=== PATIENT | female | born 1980 | race Hispanic/Latino ===

== ENCOUNTER 2018-11-01 18:28 | Emergency (ER) | payer SELFPAY ==
[2018-11-01 19:24] LABS: Specific Gravity 1.025 (1.005-1.030); Urine Appearance CLOUDY; Urine Bilirubin NEGATIVE (NEG); Urine Blood 3+ (NEG); Urine Color YELLOW; Urine Glucose NEGATIVE (NEG); Urine Protein 2+ (NEG); Urine Specific Gravity 1.025 (1.005-1.030)
[2018-11-01 19:35] LABS: Absolute Lymphocytes (CBC) 2.2 K/uL (0.7-4.9); Absolute Monocytes 0.6 K/uL (0.1-1.3); Basophils % 0.7 % (0-1.3); Lymphocytes % 27.2 % (15.3-44.8); MPV 8.2 fL (7.6-11.3); Monocytes % 7.5 % (3.3-12.3); RBC Red Blood Cell Count 3.87 M/uL (3.86-4.86)
[2018-11-01 19:35] LABS: Urine Microscopic Reflex ORDER UMIC
[2018-11-01 19:46] LABS: Urine Bacteria 20-50 /HPF (<20); Urine Culture Reflex Order REFLEXED; Urine RBC LOADED /HPF (NONE SEEN)
[2018-11-01 19:48] LABS: BUN Blood Urea Nitrogen 12 mg/dL (7-18); Bicarbonate 27 mmol/L (21-32); Glucose Level 105 mg/dL (74-106); Potassium 3.7 mmol/L (3.5-5.1); Sodium Level 142 mmol/L (136-145)
[2018-11-01 20:21] LABS: Anisocytosis 1+; Blood Morphology Comment NOTED (NOT SEEN); Hypochromasia 2+; Platelet Estimate ADEQ; Urine White Blood Cell Casts OK
--- NOTE | 2018-11-01 20:49 | RAD REPORT ---
EXAM DESCRIPTION: US - Transvaginal Study Probe - 11/01/2018 8:23 pm CLINICAL HISTORY: Pelvic pain with vaginal bleeding COMPARISON: 2017 FINDINGS: The uterus measures 8 x 6 x 7cm. A fibroid is not seen. Initial stripe measures 16 millime ters Right ovary is normal in size and echotexture. 5.8 centimeter left ovarian cyst. Flow to the left ovary is seen. Right and left adnexal unremarkable No significant free fluid is seen. IMPRESSION: 5.8 centimeter left ovarian cyst. Followup ultrasound in a couple months recommended to assess stability/resolution
[2018-11-01] MEDS ORDERED: MEDROXYPROGEST ACET 150 MG/ML IM ONE (21:22)
--- NOTE | 2018-11-01 21:26 | EDPHYS ---
Physician Documentation [facility] Name: Trinity Ramos Age: 38 yrs Sex: Female : 1980 Arrival Date: 11/01/2018 Time: 18:33 Bed 16 Private MD: None, None ED Physician Abdirahman Enamorado HPI: 11/01 20:54 This 38 yrs old Female presents to ER via Ambulatory with complaints of kb Vaginal Bleeding. 20:54 The patient presents with vaginal bleeding that is moderate, with clots, reports using kb 9 pads or tampons per day. 21:18 Onset: The symptoms/episode began/occurred 4 day(s) ago. Modifying factors: The kb symptoms are alleviated by nothing, the symptoms are aggravated by nothing. Associated signs and symptoms: Pertinent positives: vaginal bleeding, Pertinent negatives: constipation, cramping, diarrhea, dyspareunia, dysuria, fever, hematuria, nausea, urinary frequency, vaginal discharge, vomiting. Severity of symptoms: At their worst the symptoms were moderate, in the emergency department the symptoms are unchanged. The patient's method of control includes nothing. The patient has experienced similar episodes in the past, chronically. The patient has not recently seen a physician. Pt reports she has vaginal bleeding for 2-3 weeks at a time normally. States it has been going on for years and she has had to be admitted for it once to get a blood transfusion. Last seen at [facility] clinic in May 2016. Pt reports she is supposed to take iron daily, but hasn't been taking it in a while because it doesn't stop the bleeding. This time bleeding started 3-4 days ago. 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 - Social history:: Smoking status: unknown. - Ebola Screening: : Patient negative for fever greater than or equal to 101.5 degrees Fahrenheit, and additional compatible Ebola Virus Disease symptoms. ROS: 20:51 Constitutional: Negative for fever, chills, and weight loss, Cardiovascular: Negative kb for chest pain, palpitations, and edema, Respiratory: Negative for shortness of breath, cough, wheezing, and pleuritic chest pain, Abdomen/GI: Negative for abdominal pain, nausea, vomiting, diarrhea, and constipation, MS/Extremity: Negative for injury and deformity, Skin: Negative for injury, rash, and discoloration, Neuro: Negative for headache, weakness, numbness, tingling, and seizure. 20:51 : Positive for vaginal bleeding. Exam: 20:48 Constitutional: This is a well developed, well nourished patient who is awake, alert, kb and in no acute distress. Head/Face: Normocephalic, atraumatic. Chest/axilla: Normal chest wall appearance and motion. Nontender with no deformity. No lesions are appreciated. Cardiovascular: Regular rate and rhythm with a normal S1 and S2. No gallops, murmurs, or rubs. Normal PMI, no JVD. No pulse deficits. Respiratory: Lungs have equal breath sounds bilaterally, clear to auscultation and percussion. No rales, rhonchi or wheezes noted. No increased work of breathing, no retractions or nasal flaring. Abdomen/GI: Soft, non-tender, with normal bowel sounds. No distension or tympany. No guarding or rebound. No evidence of tenderness throughout. Skin: Warm, dry with normal turgor. Normal color with no rashes, no lesions, and no evidence of cellulitis. MS/ Extremity: Pulses equal, no cyanosis. Neurovascular intact. Full, normal range of motion. Neuro: Awake and alert, GCS 15, oriented to person, place, time, and situation. Cranial nerves II-XII grossly intact. Motor strength 5/5 in all extremities. Sensory grossly intact. Cerebellar exam normal. Normal gait. 20:48 : Pelvic Exam: External exam: is normal, Speculum exam: mild bleeding, the nurse was present for the exam. Vital Signs: 18:35 BP 117 / 57; Pulse 72; Resp 18; Temp 98.2(O); Pulse Ox 99% on R/A; Weight 88.45 kg; hj Height 5 ft. 2 in. (157.48 cm); Pain 7/10; 20:42 BP 106 / 62; Pulse 67; Resp 16 S; Pulse Ox 100% on R/A; jd3 21:39 BP 100 / 57; Pulse 65; Resp 17 S; Pulse Ox 100% on R/A; Pain 5/10; jd3 18:35 Body Mass Index 35.67 (88.45 kg, 157.48 cm) hj MDM: 18:48 Patient medically screened. kb 20:47 Data reviewed: vital signs, nurses notes. Data interpreted: Pulse oximetry: on room air kb is 100 %. Interpretation: normal. Counseling: I had a detailed discussion with the patient and/or guardian regarding: the historical points, exam findings, and any diagnostic results supporting the discharge/admit diagnosis, lab results, radiology results, the need for outpatient follow up, an OB/Gyne specialist, to return to the emergency department if symptoms worsen or persist or if there are any questions or concerns that arise at home. 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 21:25 ED course: Pt educated to take iron supplements twice a day. Verbal understanding kb received. . 11/01 19:00 Order name: CBC with Diff; Complete Time: 20:22 11/01 19:00 Order name: Basic Metabolic Panel; Complete Time: 20:06 11/01 19:00 Order name: Type And Screen; Complete Time: 21:03 11/01 19:13 Order name: Test, Urine; Complete Time: 20:06 [facility] 11/01 19:13 Order name: Urinalysis; Complete Time: 20:06 [facility] 11/01 19:36 Order name: Urine Microscopic Only; Complete Time: 20:06 [facility] 11/01 18:37 Order name: Urine Dipstick-Ancillary (obtain specimen); Complete Time: 19:51 11/01 18:37 Order name: Urine Test (obtain specimen); Complete Time: 19:51 11/01 19:00 Order name: IV Start; Complete Time: 19:23 11/01 19:00 Order name: US Transvaginal Study (Probe); Complete Time: 20:50 kb 11/01 19:47 Order name: CBC Smear Scan; Complete Time: 20:22 [facility] 11/01 19:48 Order name: Urine Culture [facility] Administered Medications: 21:17 Drug: DepoProvera - medroxyPROGESTERone 150 mg Route: IM; Site: left deltoid; jd3 21:41 Follow up: Response: No adverse reaction jd3 Disposition: 11/01/18 21:25 Discharged to Home. Impression: Abnormal uterine and vaginal bleeding, unspecified, Anemia, unspecified. - Condition is Stable. - Discharge Instructions: Abnormal Uterine Bleeding, [id number]. - Medication Reconciliation Form, Thank You Letter, Antibiotic Education, Prescription Opioid Use form. - Follow up: Emergency Department; When: As needed; Reason: Worsening of condition. Follow up: Private Physician; When: 2 - 3 days; Reason: Recheck today's complaints, Continuance of care, Re-evaluation by your physician. Addendum: 11/03/2018 06:58 Co-signature as Attending Physician, Abdirahman Enamorado MD. r n Signatures: Dispatcher [employer] EDMS Blank Minor, EQUIPMENT MONITOR PHOTOTYPESETTING-C EQUIPMENT MONITOR PHOTOTYPESETTING-Abdirahman Hollis MD MD rn Joaquin, Henry, RN RN hj Davies, Jonathon, RN RN jd3 Corrections: (The following items were deleted from the chart) 11/01 21:25 21:25 11/01/2018 21:25 Discharged to Home. Impression: Abnormal uterine and vaginal kb bleeding, unspecified. Condition is Stable. Forms are Medication Reconciliation Form, Thank You Letter, Antibiotic Education, Prescription Opioid Use. Follow up: Emergency Department; When: As needed; Reason: Worsening of condition. Follow up: Private Physician; When: 2 - 3 days; Reason: Recheck today's complaints, Continuance of care, Re-evaluation by your physician. kb 21:27 21:18 Pt reports she has vaginal bleeding for 2-3 weeks at a time normally. States it kb has been going on for years and she has had to be admitted for it once to get a blood transfusion. Last seen at [facility] clinic in May 2011. This time bleeding started 3-4 days ago. kb 21:42 21:25 11/01/2018 21:25 Discharged to Home. Impression: Abnormal uterine and vaginal jd3 bleeding, unspecified; Anemia, unspecified. Condition is Stable. Discharge Instructions: Abnormal Uterine Bleeding, [id number]. Forms are Medication Reconciliation Form, Thank You Letter, Antibiotic Education, Prescription Opioid Use. Follow up: Emergency Department; When: As needed; Reason: Worsening of condition. Follow up: Private Physician; When: 2 - 3 days; Reason: Recheck today's complaints, Continuance of care, Re-evaluation by your physician. kb
--- NOTE | 2018-11-01 21:26 | ER ---
Nurse's Notes [facility] Name: Trinity Ramos Age: 38 yrs Sex: Female : 1980 Arrival Date: 11/01/2018 Time: 18:33 Bed 16 Private MD: None, None Diagnosis: Abnormal uterine and vaginal bleeding, unspecified;Anemia, unspecified Presentation: 11/01 18:31 Presenting complaint: Patient states: 3-4 days ago, i started bleeding from my vagina, hj it comes with big clots, its like having a mis carriage, but im not ; in 6 hours, i use 12 sanitary pads; i have irregular menses;. Transition of care: patient was not received from another setting of care. Onset of symptoms was November 01, 2018. Risk Assessment: Do you want to hurt yourself or someone else? Patient reports no desire to harm self or others. Initial Sepsis Screen: Does the patient meet any 2 criteria? No. Patient's initial sepsis screen is negative. Does the patient have a suspected source of infection? No. Patient's initial sepsis screen is negative. Care prior to arrival: None. 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 - Social history:: Smoking status: unknown. - Ebola Screening: : Patient negative for fever greater than or equal to 101.5 degrees Fahrenheit, and additional compatible Ebola Virus Disease symptoms. Screenin:13 Abuse screen: Denies threats or abuse. Nutritional screening: No deficits noted. jd3 Tuberculosis screening: No symptoms or risk factors identified. Fall Risk Ambulatory Aid- None/Bed Rest/Nurse Assist (0 pts). Gait- Normal/Bed Rest/Wheelchair (0 pts) Mental Status- Oriented to own ability (0 pts). Total Glover Fall Scale indicates No Risk (0-24 pts). Assessment: 19:11 General: Appears in no apparent distress. uncomfortable, Behavior is calm, cooperative. jd3 Pain: Complains of pain in suprapubic area Quality of pain is described as aching, pressure. Neuro: Level of Consciousness is awake, alert, obeys commands, Oriented to person, place, time, situation. Cardiovascular: Capillary refill < 3 seconds Patient's skin is warm and dry. Respiratory: Airway is patent Respiratory effort is even, unlabored, Respiratory pattern is regular, symmetrical. GI: Abdomen is round non-distended, Reports lower abdominal pain. : Urine is blood tinged, Reports vaginal bleeding that is with clots, moderate flow. EENT: No signs and/or symptoms were reported regarding the EENT system. Derm: Skin is intact, Skin is dry, Skin is normal, Skin temperature is warm. Musculoskeletal: Circulation, motion, and sensation intact. Range of motion: intact in all extremities. 20:44 Reassessment: Patient appears in no apparent distress at this time. Patient and/or jd3 family updated on plan of care and expected duration. Pain level reassessed. Patient is alert, oriented x 3, equal unlabored respirations, skin warm/dry/pink. 21:40 Reassessment: Patient appears in no apparent distress at this time. Patient and/or jd3 family updated on plan of care and expected duration. Pain level reassessed. Patient is alert, oriented x 3, equal unlabored respirations, skin warm/dry/pink. Patient states feeling better. Vital Signs: 18:35 BP 117 / 57; Pulse 72; Resp 18; Temp 98.2(O); Pulse Ox 99% on R/A; Weight 88.45 kg; hj Height 5 ft. 2 in. (157.48 cm); Pain 7/10; 20:42 BP 106 / 62; Pulse 67; Resp 16 S; Pulse Ox 100% on R/A; jd3 21:39 BP 100 / 57; Pulse 65; Resp 17 S; Pulse Ox 100% on R/A; Pain 5/10; jd3 18:35 Body Mass Index 35.67 (88.45 kg, 157.48 cm) ED Course: 18:33 Patient arrived in ED. mr 18:33 None, None is Private Physician. mr 18:34 Triage completed. hj 18:36 Arm band placed on left wrist. hj 18:48 [facility] kb 18:48 Abdirahman Enamorado MD is Attending Physician. kb 18:57 Hinton, Saad, RN is Primary Nurse. jd3 19:13 Patient has correct armband on for positive identification. Bed in low position. Call j light in reach. Side rails up X 1. Adult w/ patient. 19:18 Initial lab(s) drawn, by me, sent to lab. T\T\S collected, blood band applied to patient. jp3 Inserted saline lock: 22 gauge in left antecubital area, using aseptic technique. Blood collected. 19:23 Type And Screen Sent. jp3 19:23 Basic Metabolic Panel Sent. jp3 19:23 CBC with Diff Sent. jp3 20:03 US Transvaginal Study (Probe) In Process Unspecified. EDMS 21:39 No provider procedures requiring assistance completed. IV discontinued, intact, jd3 bleeding controlled, No redness/swelling at site. Pressure dressing applied. Administered Medications: 21:17 Drug: DepoProvera - medroxyPROGESTERone 150 mg Route: IM; Site: left deltoid; jd3 21:41 Follow up: Response: No adverse reaction jd3 Outcome: 21:25 Discharge ordered by . kb 21:40 Discharged to home ambulatory, with family. jd3 21:40 Condition: stable 21:40 Discharge instructions given to patient, family, Instructed on discharge instructions, follow up and referral plans. Demonstrated understanding of instructions, follow-up care. 21:42 Patient left the ED. jd3 Signatures: Dispatcher [employer] EDOK Blank Minor FNP-C FNP-Trevor Windy EdouardAbdoul RN RN hj Davies, Jonathon, RN RN jCamden Hightower jp3 Corrections: (The following items were deleted from the chart) 18:37 18:35 Pulse 72bpm; Resp 18bpm; Pulse Ox 99% RA; Temp 98.2F Oral; 88.45 kg; Height 5 ft. hj 2 in.; BMI: 35.6; Pain 7/10; hj
[2018-11-01 23:56] VITALS: TEMP 98.2
[2018-11-01 23:57] VITALS: O2SAT 100
[2018-11-01 23:59] VITALS: BP 100/57
== END 2018-11-01 21:42 | disposition home or self-care (01) ==
LOC: ER 18:28
DX: D64.9 Anemia, unspecified (principal)
CPT/HCPCS: 36415; 76830; 80048; 81003; 81015; 81025; 85025; 86850; 86900; 86901; 87086; 87088; 96372; 99284; J1050

== ENCOUNTER 2020-04-13 20:03 | Emergency (ER) | payer SELFPAY ==
[2020-04-13] MEDS ORDERED: ACETAMINOPHEN 500 MG TAB ONE (20:41)
--- NOTE | 2020-04-13 21:06 | ER ---
Nurse's Notes [facility] Name: Trinity Ramos Age: 39 yrs Sex: Female : 1980 Arrival Date: 04/13/2020 Time: 20:08 Bed 5 Private MD: Diagnosis: Acute upper respiratory infection, unspecified Presentation: 04/13 20:31 Chief complaint: Patient states: Cough that began yesterday with sneezing, general body lp1 aches, feeling feverish, chills; Reports exposure to COVID due to coworker testing positive last week; Denies sore throat, shortness of breath. Coronavirus screen: chills, cough unrelated to allergies, fever, muscle pain, shaking with chills. Ebola Screen: No symptoms or risks identified at this time. Initial Sepsis Screen: Does the patient meet any 2 criteria? No. Patient's initial sepsis screen is negative. Does the patient have a suspected source of infection? No. Patient's initial sepsis screen is negative. Risk Assessment: Do you want to hurt yourself or someone else? Patient reports no desire to harm self or others. Onset of symptoms was April 12, 2020. 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 - Social history:: Smoking status: Patient reports the use of cigarette tobacco products, denies chronic smoking, but will smoke occasionally. Screenin:33 Abuse screen: Denies threats or abuse. Denies injuries from another. Nutritional lp1 screening: No deficits noted. Tuberculosis screening: No symptoms or risk factors identified. Fall Risk None identified. Assessment: 20:34 General: Appears in no apparent distress. Behavior is calm, cooperative, appropriate lp1 for age, Reports chills for fever for 12-24 hours. Pain: Complains of pain in generalized body. Neuro: Level of Consciousness is awake, alert, obeys commands, Oriented to person, place, time, situation. Cardiovascular: Patient's skin is warm and dry. Respiratory: Respiratory effort is even, unlabored. GI: Abdomen is non-distended. : No signs and/or symptoms were reported regarding the genitourinary system. EENT: No signs and/or symptoms were reported regarding the EENT system. Derm: Skin is pink, warm \T\ dry. Musculoskeletal: No deficits noted. Vital Signs: 20:25 BP 118 / 62; Pulse 97; Resp 18; Temp 101.6; Pulse Ox 100% on R/A; mg2 20:33 Weight 86.18 kg (R); Height 5 ft. 2 in. (157.48 cm); lp1 21:20 Temp 100.5(O); mg2 20:33 Body Mass Index 34.75 (86.18 kg, 157.48 cm) lp1 ED Course: 20:08 Patient arrived in ED. ds1 20:12 Blank Minor FNP-C is [facility]. kb 20:12 Rashawn Adam MD is Attending Physician. kb 20:25 Carlos Jha, KLEBER is Primary Nurse. mg2 20:30 Flu and/or RSV swab sent to lab. lp1 20:31 Flu Sent. ds4 20:32 Triage completed. lp1 20:32 Arm band placed on left wrist. lp1 20:33 Patient has correct armband on for positive identification. Pulse ox on. NIBP on. lp1 20:44 No provider procedures requiring assistance completed. mg2 21:20 Patient did not have IV access during this emergency room visit. mg2 Administered Medications: 20:30 Drug: Tylenol 1000 mg Route: PO; mg2 21:19 Follow up: Response: No adverse reaction mg2 Outcome: 21:05 Discharge ordered by . kb 21:20 Discharged to home ambulatory, with family. mg2 21:20 Condition: stable 21:20 Discharge instructions given to patient, family, Instructed on discharge instructions, follow up and referral plans. Demonstrated understanding of instructions, follow-up care. 21:22 Patient left the ED. mg2 Signatures: Blank Minor FNP-C [employer]-Aletha Field ds1 Erica Humphrey RN RN lp1 Vazquez Restrepo ds4 Carlos Jha RN RN mg2
--- NOTE | 2020-04-13 21:06 | EDPHYS ---
Physician Documentation [facility] Name: Trinity Ramos Age: 39 yrs Sex: Female : 1980 Arrival Date: 04/13/2020 Time: 20:08 Bed 5 Private MD: ED Physician Rashawn Adam HPI: 04/13 21:04 This 39 yrs old Female presents to ER via Ambulatory with complaints of Chest kb Tightness, Chills, Cough. 21:04 The patient or guardian reports cough, that is intermittent, described as mild, with no kb sputum, flu symptoms, arthralgias, low-grade fever, myalgias. Onset: The symptoms/episode began/occurred yesterday. Severity of symptoms: At their worst the symptoms were moderate, in the emergency department the symptoms are unchanged. Modifying factors: The symptoms are alleviated by nothing, the symptoms are aggravated by nothing. Associated signs and symptoms: Pertinent positives: fever, Pertinent negatives: chest pain, diarrhea, ear ache, nausea, rhinorrhea, sore throat, vomiting. The patient has not experienced similar symptoms in the past. The patient has not recently seen a physician. Pt reports chills, fever, cough, bodyaches and sneezing that started yesterday. Boss tested positive for COVID a week ago. 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 - Social history:: Smoking status: Patient reports the use of cigarette tobacco products, denies chronic smoking, but will smoke occasionally. ROS: 21:03 Cardiovascular: Negative for chest pain, palpitations, and edema, Abdomen/GI: Negative kb for abdominal pain, nausea, vomiting, diarrhea, and constipation, Back: Negative for injury and pain, MS/Extremity: Negative for injury and deformity, Skin: Negative for injury, rash, and discoloration, Neuro: Negative for headache, weakness, numbness, tingling, and seizure. 21:03 Constitutional: Positive for body aches, chills, fatigue, fever, malaise. 21:03 Respiratory: Positive for cough, Negative for dyspnea on exertion, hemoptysis, orthopnea, pleurisy, shortness of breath, sputum production, wheezing. Exam: 21:03 Constitutional: This is a well developed, well nourished patient who is awake, alert, kb and in no acute distress. Head/Face: Normocephalic, atraumatic. Chest/axilla: Normal chest wall appearance and motion. Nontender with no deformity. No lesions are appreciated. Cardiovascular: Regular rate and rhythm with a normal S1 and S2. No gallops, murmurs, or rubs. Normal PMI, no JVD. No pulse deficits. Respiratory: Lungs have equal breath sounds bilaterally, clear to auscultation and percussion. No rales, rhonchi or wheezes noted. No increased work of breathing, no retractions or nasal flaring. Abdomen/GI: Soft, non-tender, with normal bowel sounds. No distension or tympany. No guarding or rebound. No evidence of tenderness throughout. Skin: Warm, dry with normal turgor. Normal color with no rashes, no lesions, and no evidence of cellulitis. MS/ Extremity: Pulses equal, no cyanosis. Neurovascular intact. Full, normal range of motion. Neuro: Awake and alert, GCS 15, oriented to person, place, time, and situation. Cranial nerves II-XII grossly intact. Motor strength 5/5 in all extremities. Sensory grossly intact. Cerebellar exam normal. Normal gait. Vital Signs: 20:25 BP 118 / 62; Pulse 97; Resp 18; Temp 101.6; Pulse Ox 100% on R/A; mg2 20:33 Weight 86.18 kg (R); Height 5 ft. 2 in. (157.48 cm); lp1 21:20 Temp 100.5(O); mg2 20:33 Body Mass Index 34.75 (86.18 kg, 157.48 cm) lp1 MDM: 20:21 Patient medically screened. kb 21:03 Data reviewed: vital signs, nurses notes. Data interpreted: Pulse oximetry: on room air kb is 100 %. Interpretation: normal. Counseling: I had a detailed discussion with the patient and/or guardian regarding: the historical points, exam findings, and any diagnostic results supporting the discharge/admit diagnosis, lab results, the need for outpatient follow up, a family practitioner, to return to the emergency department if symptoms worsen or persist or if there are any questions or concerns that arise at home. 04/13 20:25 Order name: Flu; Complete Time: 21:03 kb 04/13 21:05 Order name: COVID-19 kb Administered Medications: 20:30 Drug: Tylenol 1000 mg Route: PO; mg2 21:19 Follow up: Response: No adverse reaction mg2 Disposition: 04/14 02:11 Co-signature as Attending Physician, Rashawn Adam MD. [email or web address] Disposition: 04/13/20 21:05 Discharged to Home. Impression: Acute upper respiratory infection, unspecified. - Condition is Stable. - Discharge Instructions: Viral Respiratory Infection, [id number], COVID-19. - Medication Reconciliation Form, Thank You Letter, Antibiotic Education, Prescription Opioid Use, Work release form form. - Follow up: Emergency Department; When: As needed; Reason: Worsening of condition. Follow up: Private Physician; When: 2 - 3 days; Reason: Recheck today's complaints, Continuance of care, Re-evaluation by your physician. Addendum: 04/16/2020 14:47 Addendum: Pt doing ok, notified of COVID-19 positive test results, return precautions r n given and understood. . Signatures: Dispatcher [employer] Blank Callahan, INSECTICIDE MAKER-C INSECTICIDE MAKER-CkAbdirahman Clayton MD MD rn Pena, Laura RN RN lp1 Carlos Jha RN RN mg2 Rashawn Adam MD MD [email or web address] Corrections: (The following items were deleted from the chart) 04/13 21:22 21:05 04/13/2020 21:05 Discharged to Home. Impression: Acute upper respiratory mg2 infection, unspecified. Condition is Stable. Forms are Medication Reconciliation Form, Thank You Letter, Antibiotic Education, Prescription Opioid Use. Follow up: Emergency Department; When: As needed; Reason: Worsening of condition. Follow up: Private Physician; When: 2 - 3 days; Reason: Recheck today's complaints, Continuance of care, Re-evaluation by your physician. kb
[2020-04-14 01:08] VITALS: BP 118/62; O2SAT 100
[2020-04-14 01:09] VITALS: TEMP 100.5
== END 2020-04-13 21:22 | disposition home or self-care (01) ==
LOC: ER 20:03
DX: U07.1 COVID-19 (principal); J06.9 Acute upper respiratory infection, unspecified; F17.210 Nicotine dependence, cigarettes, uncomplicated
CPT/HCPCS: 87804; 99283; U0002

== ENCOUNTER 2020-09-30 08:45 | Emergency (ER) | payer OTHER, SELFPAY ==
--- OUTSIDE RECORDS SUMMARY | 2020-09-30 08:48 | XMS REPORT | Continuity of Care Document ---
:1980 Author Organization [facility] t Address [address] [place] [address] Care Team Providers Name Role Phone Lab, Fam Pob I Attending Clinician Unavailable Doctor Unassigned, Name Attending Clinician Unavailable Problems This patient has no known problems. Allergies, Adverse Reactions, Alerts This patient has no known allergies or adverse reactions. Medications This patient has no known medications. Procedures This patient has no known procedures. Encounters Start End Encounter Admission Attending Care Care Encounter Source Date/Time Date/Time Type Type Clinicians Facility Department ID 2020-07-28 2020-07-28 Laboratory Lab, [facility] [id number] 12:55:09 13:15:09 Only Fam Pob I Health [id number] [place] [id number] [facility]io [phone] nal [address] 2020-04-26 2020-04-26 Laboratory Lab, [facility] [id number] 10:37:02 10:57:02 Only Fam Pob I Health [id number] [place] [id number] Professio [phone] nal [address] 2020-04-26 2020-04-26 Letter Doctor FIELDS [id number] 00:00:00 00:00:00 (Out) UnassignedLINDSAY [id number] [facility] [phone] [id number] Results This patient has no known results.
[2020-09-30] MEDS ORDERED: HYDROCODONE/APAP 10/325 TAB ONE (10:35)
[2020-09-30] MEDS ORDERED: DIAZEPAM 5 MG TABLET ONE (10:35)
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
[2020-09-30 11:35] VITALS: TEMP 97.9
[2020-09-30 11:39] VITALS: BP 92/57; O2SAT 99
== END 2020-09-30 11:30 | disposition home or self-care (01) ==
LOC: ER 08:45
DX: S16.1XXA Strain of muscle, fascia and tendon at neck level, initial encounter (principal); S29.012A Strain of muscle and tendon of back wall of thorax, initial encounter; V49.40XA Driver injured in collision with unspecified motor vehicles in traffic accident, initial encounter; F17.210 Nicotine dependence, cigarettes, uncomplicated
CPT/HCPCS: 70450; 72125; 99284

== ENCOUNTER 2021-03-07 15:41 | Emergency (ER) | payer SELFPAY ==
[2021-03-07 16:09] LABS: Urine Blood Negative (Negative); Urine Glucose Negative (Negative); Urine Protein 2+ (Negative); Urine Specific Gravity 1.025 (1.005-1.030); Urine pH 7.5 (5.0-7.0)
[2021-03-07 16:32] LABS: Urine Specific Gravity/Preg 1.025 (1.005-1.030)
[2021-03-07] MEDS ORDERED: MORPHINE 4 MG/ML SYR ONE (16:39)
[2021-03-07] MEDS ORDERED: NA CHLORIDE 0.9% 1,000 ML ONE (16:40)
[2021-03-07] MEDS ORDERED: FAMOTIDINE 20 MG/2 ML VIAL IV ONE (16:40)
[2021-03-07] MEDS ORDERED: ONDANSETRON 4 MG/2 ML VIAL ONE (16:53)
[2021-03-07 17:03] LABS: Absolute Lymphocytes (CBC) 1.8 K/uL (0.7-4.9); Basophils % 0.7 % (0-1.3); Hematocrit 30.4 % (36.0-45.0); Lymphocytes % 21.7 % (15.3-44.8); MPV 8.3 fL (7.6-11.3); RBC Red Blood Cell Count 4.72 M/uL (3.86-4.86)
[2021-03-07 17:14] LABS: ALT/SGPT 34 U/L (12-78); AST/SGOT 62 U/L (15-37); Albumin 3.7 g/dL (3.4-5.0); Alkaline Phosphatase 113 U/L (45-117); BUN Blood Urea Nitrogen 12 mg/dL (7-18); Bicarbonate 27 mmol/L (21-32); Bilirubin Direct 0.2 mg/dL (0-0.2); Bilirubin Total 0.4 mg/dL (0.2-1.0); Glucose Level 90 mg/dL (74-106); Lipase 94 U/L (73-393); Potassium 3.6 mmol/L (3.5-5.1); Protein, Total 7.7 g/dL (6.4-8.2); Sodium Level 142 mmol/L (136-145)
--- NOTE | 2021-03-07 17:33 | RAD REPORT ---
EXAM DESCRIPTION: US - Abdomen Exam Limited - 03/07/2021 4:35 pm CLINICAL HISTORY: ABD PAIN COMPARISON: No comparisons FINDINGS: The gallbladder demonstrates sludge and a large shadowing gallstone. No pericholecystic fl uid or gallbladder wall thickening. The common bile duct is normal measuring 3 mm. The liver demonstrates no findings of intrahepatic biliary dilatation. IMPRESSION: Large shadowing gallstone noted without evidence of acute cholecystitis.
[2021-03-07 17:56] LABS: Blood Morphology Comment NOTED (NOT SEEN); Hypochromasia 1+; Platelet Estimate ADEQ; Polychromasia SLIGHT; White Blood Cell Scan OK (OK)
[2021-03-07 18:02] LABS: Urine Bacteria >50 /HPF (<20)
[2021-03-07 18:03] LABS: Urine RBC <5 /HPF (NONE SEEN)
[2021-03-07] MEDS ORDERED: CEFTRIAXONE 1000 MG/VIAL ONE (18:17)
[2021-03-07] MEDS ORDERED: LIDOCAINE VISCOUS 2% SOLN 15 ML UDC ONE (18:17)
[2021-03-07] MEDS ORDERED: MAGNES/ALUMIN/SIMET 30ML UCUP ONE (18:17)
[2021-03-07] MEDS ORDERED: NA CHLORIDE 0.9% 50 ML ONE (18:18)
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
--- NOTE | 2021-03-07 18:20 | EDPHYS ---
Physician Documentation [facility] Name: Trinity Ramos Age: 40 yrs Sex: Female : 1980 Arrival Date: 03/07/2021 Time: 15:43 Bed 24 Private MD: ED Physician Abdirahman Enamorado HPI: 03/07 15:55 This 40 yrs old Female presents to ER via Ambulatory with complaints of cp Abdominal Pain. 15:55 The patient presents with abdominal pain in the epigastric area, in the right upper cp quadrant. 15:55 Onset: The symptoms/episode began/occurred 30 minute(s) ago. The symptoms radiate to right back. Associated signs and symptoms: Pertinent positives: nausea and vomiting, Pertinent negatives: constipation, diarrhea, fever, vomiting blood. The symptoms are described as constant. Modifying factors: the symptoms are aggravated by pressure. Historical: - Allergies: 15:49 No Known Allergies; ll1 - PMHx: 15:49 None; ll1 - PSHx: 15:49 bladder SX; ll1 - Immunization history:: Client reports receiving the 2nd dose of the Covid vaccine. - Social history:: Smoking status: Patient denies any tobacco usage or history of. ROS: 16:00 Constitutional: Negative for body aches, chills, fever. cp 16:00 Eyes: Negative for injury, pain, redness, and discharge. cp 16:00 ENT: Negative for ear pain, sore throat, difficulty swallowing, difficulty handling secretions. 16:00 Cardiovascular: Negative for chest pain, palpitations. 16:00 Respiratory: Negative for cough, shortness of breath, wheezing. 16:00 Abdomen/GI: Positive for abdominal pain, nausea and vomiting, Negative for diarrhea, constipation, anorexia, hematemesis. 16:00 Back: Positive for radiated pain, of the mid back area. 16:00 : Negative for urinary symptoms. 16:00 Neuro: Negative for altered mental status, headache, weakness. 16:00 All other systems are negative. Exam: 16:05 Constitutional: The patient appears in no acute distress, alert, awake, non-toxic, well cp developed, well nourished, obese, uncomfortable. 16:05 Head/Face: Normocephalic, atraumatic. cp 16:05 Eyes: Periorbital structures: appear normal, Conjunctiva: normal, no exudate, no injection, Sclera: no appreciated abnormality, Lids and lashes: appear normal, bilaterally. 16:05 ENT: External ear(s): are unremarkable, Nose: is normal, Posterior pharynx: Airway: no evidence of obstruction, patent. 16:05 Chest/axilla: Inspection: normal. 16:05 Cardiovascular: Rate: normal. 16:05 Respiratory: the patient does not display signs of respiratory distress, Respirations: normal, no use of accessory muscles, no retractions, labored breathing, is not present, Breath sounds: are clear throughout, no decreased breath sounds. 16:05 Abdomen/GI: Inspection: obese Bowel sounds: active, all quadrants, Palpation: soft, in all quadrants, severe abdominal tenderness, in the epigastric area and right upper quadrant, voluntary guarding, is elicited in the epigastric area and right upper quadrant. 16:05 Back: pain, that is moderate, of the mid back area. Vital Signs: 15:48 BP 147 / 79; Pulse 76; Resp 18; Temp 97.3; Pulse Ox 100% ; Weight 90.72 kg; Height 5 ll1 ft. 2 in. (157.48 cm); Pain 10/10; 17:26 BP 100 / 56; Pulse 62; Resp 17; Pulse Ox 100% on R/A; oh 15:48 Body Mass Index 36.58 (90.72 kg, 157.48 cm) ll1 MDM: 15:49 Patient medically screened. cp 18:17 Data reviewed: vital signs, nurses notes, lab test result(s), radiologic studies, cp ultrasound, I have discussed the patient's presentation/case with the attending Emergency Department Physician; and as a result, I will discharge patient. Counseling: I had a detailed discussion with the patient and/or guardian regarding: the historical points, exam findings, and any diagnostic results supporting the discharge/admit diagnosis, lab results, radiology results, the need for outpatient follow up, for definitive care, a general surgeon, to return to the emergency department if symptoms worsen or persist or if there are any questions or concerns that arise at home. Response to treatment: the patient's symptoms have markedly improved after treatment, Pain and nausea markedly improved. Vomiting resolved. Will discharge to home for continued monitoring. 03/07 15:53 Order name: Basic Metabolic Panel cp 10/09 15:53 Order name: CBC with Diff; Complete Time: 18:20 cp 03/07 17:09 Interpretation: Normal except: HGB 9.3; HCT 30.4; MCV 64.3; MCH 19.8; MCHC 30.7; RDW cp 17.9; EOSINOPHIL % 4.5. 03/07 15:53 Order name: Hepatic Function cp 03/07 15:53 Order name: Lipase; Complete Time: 17:22 cp 03/07 15:54 Order name: Basic Metabolic Panel; Complete Time: 17:22 EDMS 03/07 17:22 Interpretation: Normal except: CL 110. cp 03/07 15:54 Order name: Liver (Hepatic) Function; Complete Time: 17:22 EDMS 03/07 17:22 Interpretation: Normal except: AST 62; GLOB 4.0; A/G 0.9. cp 03/07 16:02 Order name: US Abdomen Limited: liver/gallbladder; Complete Time: 17:38 cp 03/07 16:09 Order name: Urine Dipstick-Ancillary; Complete Time: 16:36 EDMS 03/07 16:36 Interpretation: Normal except: UPH 7.5; UPROT 2+; U NIT Positive; UESTR Trace. cp 03/07 16:11 Order name: Urine Microscopic Only oh 03/07 16:12 Order name: Urine Microscopic Only; Complete Time: 18:20 EDMS 03/07 18:20 Interpretation: Normal except: UWBC 10-20; UBACT >50; SQEPI 10-20. cp 03/07 16:16 Order name: Urine --Ancillary (enter results); Complete Time: 17:09 eb 03/07 17:08 Order name: CBC Smear Scan; Complete Time: 18:20 EDMS 03/07 18:04 Order name: Urine Culture EDIA 03/07 15:53 Order name: IV Saline Lock; Complete Time: 16:42 cp 03/07 15:53 Order name: Labs collected and sent; Complete Time: 16:42 cp 03/07 15:53 Order name: Urine Dipstick-Ancillary (obtain specimen); Complete Time: 16:42 cp 03/07 15:53 Order name: Urine Test (obtain specimen); Complete Time: 15:58 cp 03/07 16:02 Order name: NPO; Complete Time: 16:09 cp Administered Medications: 16:41 Drug: Zofran (Ondansetron) 4 mg Route: IVP; Site: left antecubital; oh 16:41 Drug: Pepcid (famotidine) 20 mg Route: IVP; Site: left antecubital; oh 16:41 Drug: morphine 4 mg Route: IVP; Site: left antecubital; oh 16:42 Drug: NS 0.9% 1000 ml Route: IV; Rate: 1 bolus; Site: left antecubital; oh 17:45 Drug: GI Cocktail without - (Maalox Suspension 30 ml, Lidocaine Liquid 2 % 15 oh ml) Route: PO; 18:07 Drug: Rocephin - (cefTRIAXone) 1 grams Route: IVPB; Infused Over: 30 mins; Site: left oh hand; Point of Care Testing: Urine : 15:59 hCG Reading: Negative; oh Disposition: 03/08 07:02 Co-signature as Attending Physician, Abdirahman Enamorado MD I agree with the assessment and rn plan of care. Attestation: The patient's history, exam findings, diagnostics, and a summary of any interventions or procedures was reviewed in detail with Juanito RODRIGUEZ. Disposition Summary: 03/07/21 18:19 Discharge Ordered Location: Home cp Problem: new cp Symptoms: have improved cp Condition: Stable cp Diagnosis - Other cholelithiasis without obstruction cp - UTI/ Urinary tract infection, site not specified cp Followup: cp - With: Gabe Nolan MD - When: 1 - 2 days - Reason: cholelithiasis Discharge Instructions: - Discharge Summary Sheet cp - Urinary Tract Infection, Adult cp - Cholelithiasis cp Forms: - Medication Reconciliation Form cp - Thank You Letter cp - Antibiotic Education cp - Prescription Opioid Use cp Prescriptions: - Zofran 4 mg Oral Tablet - take 1 tablet by ORAL route every 12 hours As needed; 20 tablet; Refills: 0, cp Product Selection Permitted - Cipro 500 mg Oral Tablet - take 1 tablet by ORAL route every 12 hours for 7 days; 14 tablet; Refills: 0, cp Product Selection Permitted - dicyclomine 20 mg Oral Tablet - take 1 tablet by ORAL route 4 times per day; 30 tablet; Refills: 0, Product cp Selection Permitted Signatures: Dispatcher [employer] EDAbdirahman Britt MD MD rn Page, Corey, PA PA cp Lewis, Lynsay, RN RN ll1 Jonathan Norman, RN RN oh
[2021-03-07 19:04] VITALS: TEMP 97.3; O2SAT 100
[2021-03-07 19:06] VITALS: BP 100/56
== END 2021-03-07 18:56 | disposition home or self-care (01) ==
LOC: ER 15:41
DX: K80.20 Calculus of gallbladder without cholecystitis without obstruction (principal); N39.0 Urinary tract infection, site not specified
CPT/HCPCS: 36415; 76705; 80048; 80076; 81003; 81015; 81025; 83690; 85025; 87077; 87086; 87088; 87186; 96374; 96375; 99284; J2405; J7030

== ENCOUNTER 2021-06-08 20:56 | Emergency (ER) | payer SELFPAY ==
--- OUTSIDE RECORDS SUMMARY | 2021-06-08 21:00 | XMS REPORT | Continuity of Care Document ---
:1980 Author Organization [facility] t Address [address] [place] [address] Care Team Providers Name Role Phone Lab, Fam Pob I Attending Clinician Unavailable Ray CLARKE Attending Clinician RAY Attending Clinician Unavailable DK Attending Clinician Unavailable Dk VASQUEZ Attending Clinician Doctor Unassigned, Name Attending Clinician Unavailable Payers Payer Name Policy Type Policy Number Effective Date Expiration Date S ource Advance Directives Directive Decision Effective Termination Comments Source Date Date Healthcare Agents on N/A Univ ersity FileNameRelationshipHealthcare [facility] Agent Medical RelationshipCommunicationDiola [facility] Care [phone] (Mobile) Problems Condition Condition Condition Status Onset Resolution Last Treating Co mments Source Name Details Category Date Date Treatment Clinician Date Fibroids Fibroids Disease Active Unive rs 9-12 ity of 00:00: [address] Branch Irregular Irregular Disease Active Uni vers menstrual menstrual 5-31 ity of bleeding bleeding 00:00: [place] [address] Medical Branch Obesity Obesity Disease Active Univers (BMI (BMI 1-30 ity of 30.0-34.9) 30.0-34.9) 00:[place]: [place] 00 [place] Branch Other Other Disease Active Univers general general 1-30 ity of counseling [place] and advice and advice 00 Sd dical for for Branch contracept contracept sorin sorin management management History of History of Disease Active U nivers bilateral bilateral 1-30 ity of tubal tubal 00:00: [place] ligation ligation 00 Medica l Branch Former Former Disease Active [facility] tobacco tobacco 1-30 ity of use use 00:00: [address] Allergies, Adverse Reactions, Alerts Allergy Allergy Status Severity Reaction(s) Onset Inactive Treating Comm ents Source Name Type Date Date Clinician NO KNOWN Drug Active Univers ALLERGIE Class ity of S [facility] Social History Social Habit Start Date Stop Date Quantity Comments Source Sex Assigned At Universit y of [facility] Exposure to Yes University of SARS-CoV-2 [facility] (event) Branch Cigarettes smoked 2017-02-08 2017-02-08 Univers ity of current (pack per 00:00:00 00:00:00 [facility] ) - Reported Branch Cigarette 2017-02-08 2017-02-08 University of pack-years 00:00:00 00:00:00 [facility] Alcohol intake 2017-02-08 2017-02-08 Current drinker of Un iversity of 00:00:00 00:00:00 alcohol (finding) [facility] Alcohol Comment 2016-06-28 2016-06-28 Occassionally Univer sity of 00:00:00 00:00:00 [facility] History of 2015-06-18 Cigarette Smoker Universi ty of tobacco use 00:00:00 [facility] Smoking Status Start Date Stop Date Source Former smoker 2017-02-08 00:00:00 2017-02-08 00:00:00 Universi ty of [facility] Medications Ordered Filled Start Stop Current Ordering Indication Dosage Frequency Signature Comments Components Source Medication Medication Date Date Medication? Clinician (SIG) Name Name medroxyPROG 2016-05 Yes 150mg Unive rs ESTERone 0-10 ity of (DEPO-PROVE 20:15: [place] RA) [facility] injection Branch 150 mg medroxyPROG 2016-05 Yes 150mg Unive rs ESTERone 0-10 ity of (DEPO-PROVE 20:15: [place] RA) Medical injection Branch 150 mg medroxyPROG 2016-05 Yes 150mg Unive rs ESTERone 0-10 ity of (DEPO-PROVE 20:15: [place] RA) [facility] injection Branch 150 mg Immunizations Ordered Filled Immunization Date Status Comments Sourc e Immunization Name Name TDAP (ADACEL) 2007-12-29 Completed [facility] VACCINE 00:00:00 [facility] TDAP (ADACEL) 2007-12-29 Completed University of VACCINE 00:00:00 [facility] TDAP (ADACEL) 2007-12-29 Completed University of VACCINE 00:00:00 [facility] Procedures This patient has no known procedures. Encounters Start End Encounter Admission Attending Care Care Encounter Source Date/Time Date/Time Type Type Clinicians Facility Department ID 2020-07-28 2020-07-28 Laboratory Lab, [facility] [id number] 12:55:09 13:15:09 Only Fam Pob I Health [id number] [place] [id number] Professio [phone] nal [address] 2020-07-28 2020-07-28 Laboratory Lab, [facility] Fam Pob I [facility] 1.. [id number] Univers 12:55:09 13:15:09 Only Colby [facility] [id number] ity of [place] [id number] Edwar as Professio [phone] Sd dical [address] Office [address] One 2020-07-28 2020-07-28 Outpatient R [facility] [id number] Univers 13:00:00 13:00:00 [id number] [facility] 2020-07-28 2020-07-28 Outpatient R RAY [facility] [id number] Univers 13:00:00 13:00:00 COLBY [facility] 2020-04-26 2020-04-26 Outpatient R [facility] [id number] Univers 11:00:00 11:00:00 [id number] [facility] 2020-04-26 2020-04-26 [id number] Univers 11:00:00 11:00:00 DONNIE [facility] 2020-04-26 2020-04-26 Laboratory Lab, [facility] [id number] 10:37:02 10:57:02 Only Fam Pob I Health [id number] [place] [id number] Professio [phone] nal [address] 2020-04-26 2020-04-26 Laboratory Lab, Adc Fam Pob I [facility] 1.2. [id number] Univers 10:37:02 10:57:02 Only Donnie Root [id number] ity of [place] [id number] Edwar as Professio [phone] [facility] [address] 2020-04-26 2020-04-26 Letter Doctor DONNIE [id number] 00:00:00 00:00:00 (Out) Unassigned, LINDSAY [id number] [place] [facility] [phone] [facility] 2020-04-26 2020-04-26 Letter Doctor DONNIE [id number] Univers 00:00:00 00:00:00 (Out) Unassigned, LINDSAY [id number] ity of [place] [facility] [id number] Edwar as [phone] [place] [address] Branch Results This patient has no known results.
[2021-06-08 22:44] LABS: SARS-COV-2 RT PCR POSITIVE (NEGATIVE)
--- NOTE | 2021-06-08 23:21 | ER ---
Nurse's Notes [facility] Name: Trinity Ramos Age: 40 yrs Sex: Female : 1980 Arrival Date: 06/08/2021 Time: 21:00 Bed Waiting Private MD: Diagnosis: Coronavirus infection, unspecified Presentation: 06/08 21:43 Chief complaint: Patient states: she is having diarrhea, fever, body aches, and throat bb pain since Tuesday evening. Coronavirus screen: diarrhea, fever, shortness of breath, sore throat. Ebola Screen: No symptoms or risks identified at this time. Initial Sepsis Screen: Does the patient meet any 2 criteria? No. Patient's initial sepsis screen is negative. Does the patient have a suspected source of infection? No. Patient's initial sepsis screen is negative. Risk Assessment: Do you want to hurt yourself or someone else? Patient reports no desire to harm self or others. Onset of symptoms was June 05, 2021. 21:43 Method Of Arrival: Ambulatory bb 21:43 Acuity: KRISTI 3 bb Triage Assessment: 21:44 General: Appears in no apparent distress. Behavior is calm, cooperative. Pain: bb Complains of pain in all over. Neuro: Level of Consciousness is awake, alert, obeys commands, Oriented to person, place, time, situation. Cardiovascular: Capillary refill < 3 seconds Patient's skin is warm and dry. Respiratory: Respiratory effort is even, unlabored. GI: Reports diarrhea. Derm: Skin is pink, warm \T\ dry. Musculoskeletal: Circulation, motion, and sensation intact. 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 - Social history:: Smoking status: Patient/guardian denies using tobacco, Stopped _ months ago 8. Vital Signs: 21:43 BP 123 / 84; Pulse 70; Resp 16 S; Temp 98.1(O); Pulse Ox 99% on R/A; Weight 89.81 kg bb (R); Height 5 ft. 2 in. (157.48 cm) (R); 21:43 Body Mass Index 36.21 (89.81 kg, 157.48 cm) bb ED Course: 21:00 Patient arrived in ED. wm 21:44 Triage completed. bb 21:44 Arm band placed on Patient placed in waiting room, Patient notified of wait time. covid bb swab sent. 22:47 Cristóbal Mayers NP is PHCP. pm1 22:47 Juanito Moran MD is Attending Physician. pm1 Administered Medications: No medications were administered Outcome: 23:20 Discharge ordered by . pm1 23:27 Patient left the ED. pm1 Signatures: Dayana Bui RN RN bb Cristóbal Mayers NP WEALTH MANAGEMENT MANAGER pm1 Alyssa Monk
--- NOTE | 2021-06-08 23:21 | EDPHYS ---
Physician Documentation [facility] Name: Trinity Ramos Age: 40 yrs Sex: Female : 1980 Arrival Date: 06/08/2021 Time: 21:00 Bed Waiting Private MD: BRYAN Physician Juanito Moran HPI: 06/08 23:20 This 40 yrs old Female presents to ER via Ambulatory with complaints of Fever, pm1 Nausea, Diarrhea, Headache. 23:20 The patient or guardian reports cough. Onset: The symptoms/episode began/occurred 3 pm1 day(s) ago. Severity of symptoms: in the emergency department the symptoms have improved. Modifying factors: The symptoms are alleviated by OTC cold preparation, the symptoms are aggravated by nothing. Associated signs and symptoms: Pertinent positives: diarrhea, fever, nausea, vomiting, Pertinent negatives: chest pain, SOB. The patient has not experienced similar symptoms in the past. The patient has not recently seen a physician. 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 - Social history:: Smoking status: Patient/guardian denies using tobacco, Stopped _ months ago 8. ROS: 23:20 Eyes: Negative for injury, pain, redness, and discharge, ENT: Negative for injury, pm1 pain, and discharge, Neck: Negative for injury, pain, and swelling, Cardiovascular: Negative for chest pain, palpitations, and edema. 23:20 Back: Negative for injury and pain, : Negative for injury, bleeding, discharge, and swelling, MS/Extremity: Negative for injury and deformity, Skin: Negative for injury, rash, and discoloration. 23:20 Constitutional: Positive for fever, Negative for poor PO intake. 23:20 Respiratory: Positive for cough, Negative for shortness of breath. 23:20 Abdomen/GI: Positive for nausea, vomiting, and diarrhea, Negative for abdominal pain, constipation. 23:20 Neuro: Positive for headache, Negative for numbness, tingling, weakness. 23:20 All other systems are negative. pm1 Exam: 23:20 Constitutional: This is a well developed, well nourished patient who is awake, alert, pm1 and in no acute distress. Head/Face: Normocephalic, atraumatic. 23:20 Back: No spinal tenderness. No costovertebral tenderness. Full range of motion. Skin: Warm, dry with normal turgor. Normal color with no rashes, no lesions, and no evidence of cellulitis. 23:20 ENT: Exam is negative for acute changes, External ear(s): are unremarkable, Ear canal(s): are normal, TM's: are normal, Mouth: no acute changes, Lips: normal, moist, Oral mucosa: normal, pink and intact, moist. 23:20 Cardiovascular: Exam negative for Rate: normal, Rhythm: regular, Pulses: no pulse deficits are appreciated. 23:20 Respiratory: Exam negative for acute changes, respiratory distress, shortness of breath, Breath sounds: are clear throughout. 23:20 Abdomen/GI: Inspection: abdomen appears normal, Palpation: abdomen is soft and non-tender, in all quadrants. 23:20 Neuro: Exam negative for acute changes, Orientation: is normal, Mentation: is normal, Motor: moves all fours. Vital Signs: 21:43 BP 123 / 84; Pulse 70; Resp 16 S; Temp 98.1(O); Pulse Ox 99% on R/A; Weight 89.81 kg bb (R); Height 5 ft. 2 in. (157.48 cm) (R); 21:43 Body Mass Index 36.21 (89.81 kg, 157.48 cm) bb MDM: 23:19 Data reviewed: vital signs. Data interpreted: Pulse oximetry: on room air is 99 %. pm1 Interpretation: normal. Counseling: I had a detailed discussion with the patient and/or guardian regarding: the historical points, exam findings, and any diagnostic results supporting the discharge/admit diagnosis, lab results, the need for outpatient follow up, to return to the emergency department if symptoms worsen or persist or if there are any questions or concerns that arise at home. 23:20 Patient medically screened. pm1 06/08 21:47 Order name: COVID-19/FLU A+B (Document "Date of Onset" if Symptomatic) 06/08 21:48 Order name: COVID-19/FLU A+B; Complete Time: 22:47 EDMS Administered Medications: No medications were administered Disposition: 06/09 12:18 Co-signature as Attending Physician, Juanito Moran MD I agree with the assessment and dominique plan of care. Disposition Summary: 06/08/21 23:20 Discharge Ordered Location: Home pm1 Problem: new pm1 Symptoms: have improved pm1 Condition: Stable pm1 Diagnosis - Coronavirus infection, unspecified pm1 Followup: pm1 - With: Emergency Department - When: As needed - Reason: Worsening of condition Followup: pm1 - With: Private Physician - When: 2 - 3 days - Reason: Recheck today's complaints, Continuance of care, Re-evaluation by your physician Discharge Instructions: - Discharge Summary Sheet pm1 - COVID-19 pm1 - COVID-19 Frequently Asked Questions pm1 - 10 Things You Can Do to Manage Your COVID-19 Symptoms at Home - [facility] pm1 - COVID-19: Quarantine vs. Isolation - [facility] pm1 Forms: - Medication Reconciliation Form pm1 - Thank You Letter pm1 - Antibiotic Education pm1 - Prescription Opioid Use pm1 - Work release form pm1 Prescriptions: - Guaifenesin AC 10-100 mg/5 mL Oral Liquid - take 10 milliliters by ORAL route every 4 hours As needed; 240 milliliter; pm1 Refills: 0, Product Selection Permitted Signatures: Dispatcher [employer] EDMS Juanito Moran MD MD cha Ballard, Brenda, RN RN bb Crisótbal Mayers, SIFTING OPERATOR SIFTING OPERATOR pm1 Corrections: (The following items were deleted from the chart) 02:35 06/08 23:20 The patient has not recently seen a physician, pm1 pm1 06/09 02:35 06/08 23:20 Brother diagnosed with COVID last week. pm1 pm1
[2021-06-08 23:31] VITALS: BP 123/84; TEMP 98.1; O2SAT 99
== END 2021-06-08 23:27 | disposition home or self-care (01) ==
LOC: ER 20:56
DX: U07.1 COVID-19 (principal)
CPT/HCPCS: 0240U; 99281

== ENCOUNTER 2021-08-26 20:44 | Observation (INO) | payer OTHER, SELFPAY ==
--- OUTSIDE RECORDS SUMMARY | 2021-08-26 20:48 | XMS REPORT | Continuity of Care Document ---
:1980 Author Organization [facility] t Address [address] [place] [address] Care Team Providers Name Role Phone Lab, [...] Healthcare Agents on N/A Univ ersity FileNameRelationshipHealthcare [facility] Agent Medical RelationshipCommunicationDiola [facility] Care [phone] (Mobile) Problems Condition Condition Condition Status Onset Resolution Last Treating Co mments Source Name Details Category Date Date Treatment Clinician Date Fibroids Fibroids Disease Active Unive rs 9-12 ity of 00:00: [address] Branch Irregular Irregular Disease Active Uni vers menstrual menstrual 5-31 ity of bleeding bleeding 00:00: [place] [address] Medical Branch Obesity Obesity Disease Active Univers (BMI (BMI 1-30 ity of 30.0-34.9) 30.0-34.9[place] Other Other Disease Active Univers general general 1-30 ity of counseling [place] and advice and advice 00 [place] dical for for Branch contracept contracept sorin sorin management management History of History of Disease Active U nivers bilateral bilateral 1-30 ity of tubal tubal 00:00: [place] ligation ligation 00 Medica l Branch Former Former Disease Active [facility] tobacco tobacco 1-30 ity of use use 00:00: [address] Allergies, Adverse Reactions, Alerts Allergy Allergy Status Severity Reaction(s) Onset Inactive Treating Comm ents Source Name Type Date Date Clinician NO KNOWN Drug Active Univers ALLERGIE Class ity of S [facility] Social History Social Habit Start Date Stop Date Quantity Comments Source Sex Assigned At Universit y of [facility] Exposure to Yes University of SARS-CoV-2 [facility] (event) Branch Cigarettes smoked 2017-02-08 2017-02-08 Univers ity of current (pack per 00:00:00 00:00:00 [facility] ) - Reported Branch Cigarette 2017-02-08 2017-02-08 University of pack-years 00:00:00 00:00:00 [facility] Alcohol intake 2017-02-08 2017-02-08 Current drinker of Un iversity of 00:00:00 00:00:00 alcohol (finding) [facility] Alcohol Comment 2016-06-28 2016-06-28 Occassionally Univer sity of 00:00:00 00:00:00 [facility] History of 2015-06-18 Cigarette Smoker Universi ty of tobacco use 00:00:00 [facility] Smoking Status Start Date Stop Date Source Former smoker 2017-02-08 00:00:00 2017-02-08 00:00:00 Universi ty of [facility] Medications Ordered Filled Start Stop Current Ordering Indication Dosage Frequency Signature Comments Components Source Medication Medication Date Date Medication? Clinician (SIG) Name Name medroxyPROG 2016-05 Yes 150mg Unive rs ESTERone 0-10 ity of (DEPO-PROVE 20:15: [place] RA) [facility] injection Branch 150 mg medroxyPROG 2016-05 Yes 150mg Unive rs ESTERone 0-10 ity of (DEPO-PROVE 20:15: [place] RA) Medical injection Branch 150 mg medroxyPROG 2016-05 Yes 150mg Unive rs ESTERone 0-10 ity of (DEPO-PROVE 20:15: [place] RA) [facility] injection Branch 150 mg Immunizations Ordered Filled Immunization Date Status Comments Sourc e Immunization Name Name TDAP (ADACEL) 2007-12-29 Completed [facility] VACCINE 00:00:00 [facility] TDAP (ADACEL) 2007-12-29 Completed University of VACCINE 00:00:00 [facility] TDAP (ADACEL) 2007-12-29 Completed University of VACCINE 00:00:00 [facility] Procedures This patient has no known procedures. Encounters Start End Encounter Admission Attending Care Care Encounter Source Date/Time Date/Time Type Type Clinicians Facility Department ID 2020-07-28 2020-07-28 Laboratory Lab, [facility] Fam Pob I [facility] [id number]. [id number] Univers 12:55:09 13:15:09 Only [facility] [id number] ity of [place] [id number] Edwar as Professio [phone] [place] dical nal [address] 2020-07-28 2020-07-28 Laboratory Lab, [facility] 1..[id number] 12:55:09 13:15:09 Only Fam Pob I Health [id number] [place] [id number] Professio [phone] nal [facility] [address] 2020-07-28 2020-07-28 Outpatient R [facility] [id number] Univers 13:00:00 13:00:00 [id number] [facility] 2020-07-28 2020-07-28 Outpatient R RAY [facility] [id number] Univers 13:00:00 13:00:00 [facility]-04[facility]26 2020-04-26 Outpatient R [facility] [id number] Univers 11:00:00 11:00:00 [id number] [facility] 2020-04-26 2020-04-26 [id number] Univers 11:00:00 11:00:00 DONNIE [facility] 2020-04-26 2020-04-26 Laboratory Lab, [facility] Fam Pob I [facility] 1.2. [id number] Univers 10:37:02 10:57:02 Only [facility] [id number] ity of [place] [id number] Edwar as Professio [phone] [place] dical nal [address] 2020-04-26 2020-04-26 Laboratory Lab, Adc [facility] [id number] 10:37:02 10:57:02 Only Fam Pob I Health [id number] [place] [id number] Professio [phone] nal [facility] [facility] 2020-04-26 2020-04-26 Letter Doctor DONNIE [id number] Univers 00:00:00 00:00:00 (Out) Unassigned, LINDSAY [id number] ity of [facility] [id number] Dewar as [phone] [facility] [address] 2020-04-26 2020-04-26 Letter Doctor DONNIE [id number] 00:00:00 00:00:00 (Out) Unassigned, LINDSAY [id number] [facility] [id number] [phone] [id number] Results This patient has no known results.
[2021-08-26 22:26] LABS: Potassium 3.8 mmol/L (3.5-5.1)
[2021-08-26 22:29] LABS: Absolute Lymphocytes (CBC) 2.1 K/uL (0.7-4.9); Lymphocytes % 35.9 % (15.3-44.8); MPV 8.5 fL (7.6-11.3); RBC Red Blood Cell Count 3.28 M/uL (3.86-4.86)
[2021-08-26 23:06] LABS: Urine Blood 2+ (Negative); Urine Glucose Negative (Negative); Urine Protein Negative (Negative)
[2021-08-26 23:30] LABS: Blood Morphology Comment NOTED (NOT SEEN); Hypochromasia 3+; Platelet Estimate ADEQ; Polychromasia 1+
--- NOTE | 2021-08-27 00:02 | EDPHYS ---
Physician Documentation [facility] Name: Trinity Ramos Age: 40 yrs Sex: Female : 1980 Arrival Date: 08/26/2021 Time: 20:46 Bed 5 Private MD: BRYAN Physician Juanito Moran HPI: 08/26 22:39 This 40 yrs old Female presents to ER via Ambulatory with complaints of jr8 Vaginal Bleeding. 22:39 The patient presents with vaginal bleeding that is moderate. Onset: The jr8 symptoms/episode began/occurred gradually, 2 month(s) ago. Modifying factors: The symptoms are alleviated by nothing, the symptoms are aggravated by nothing. Associated signs and symptoms: Pertinent positives: dizziness, fatigue, dyspneic upon exertion . Severity of symptoms: At their worst the symptoms were moderate, in the emergency department the symptoms are unchanged. The patient's method of control includes nothing. The patient has experienced a previous episode. The patient has not recently seen a physician. 22:39 This is a 40-year-old female patient that presented to the emergency room with jr8 complaints of dizziness, fatigue, dyspnea on exertion secondary to blood loss from heavy menstrual cycle. Stated that she is been on her menstrual cycle consistently for the last 2 months without any relief. Has had this once before and required transfusion. Has been a while has not followed up with OB for definitive care. Currently on no control methods. 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 - Social history:: Smoking status: Patient reports the use of cigarette tobacco products, smokes one-half pack cigarettes per day, Patient uses alcohol, occasionally. ROS: 22:39 Eyes: Negative for injury, pain, redness, and discharge, ENT: Negative for injury, jr8 pain, and discharge, Neck: Negative for injury, pain, and swelling, Cardiovascular: Negative for chest pain, palpitations, and edema, Abdomen/GI: Negative for abdominal pain, nausea, vomiting, diarrhea, and constipation, Back: Negative for injury and pain, MS/Extremity: Negative for injury and deformity, Skin: Negative for injury, rash, and discoloration. 22:39 Constitutional: Positive for fatigue. 22:39 Respiratory: Positive for dyspnea on exertion. 22:39 : Positive for vaginal bleeding, menstrual abnormality. 22:39 Neuro: Positive for dizziness. Exam: 22:39 ENT: Nares patent. No nasal discharge, no septal abnormalities noted. Tympanic jr8 membranes are normal and external auditory canals are clear. Oropharynx with no redness, swelling, or masses, exudates, or evidence of obstruction, uvula midline. Mucous membranes moist. Neck: Trachea midline, no thyromegaly or masses palpated, and no cervical lymphadenopathy. Supple, full range of motion without nuchal rigidity, or vertebral point tenderness. No Meningismus. Cardiovascular: Regular rate and rhythm with a normal S1 and S2. No gallops, murmurs, or rubs. Normal PMI, no JVD. No pulse deficits. Respiratory: Lungs have equal breath sounds bilaterally, clear to auscultation and percussion. No rales, rhonchi or wheezes noted. No increased work of breathing, no retractions or nasal flaring. Abdomen/GI: Soft, non-tender, with normal bowel sounds. No distension or tympany. No guarding or rebound. No evidence of tenderness throughout. Back: No spinal tenderness. No costovertebral tenderness. Full range of motion. 22:39 MS/ Extremity: Pulses equal, no cyanosis. Neurovascular intact. Full, normal range of motion. Neuro: Awake and alert, GCS 15, oriented to person, place, time, and situation. Cranial nerves II-XII grossly intact. Motor strength 5/5 in all extremities. Sensory grossly intact. 22:39 Eyes: Periorbital structures: appear normal, Pupils: equal, round, and reactive to light and accomodation, Extraocular movements: intact throughout, Conjunctiva: pale, bilaterally. 22:39 Skin: Appearance: Color: pale, Temperature: normal temperature, Moisture: normal moisture. Vital Signs: 21:27 BP 125 / 74; Pulse 74; Resp 16 S; Temp 98.2(O); Pulse Ox 100% on R/A; Weight 86.18 kg lg3 (R); Height 5 ft. 2 in. (157.48 cm) (R); Pain 8/10; 22:30 BP 103 / 61; Pulse 81; Resp 20 S; Pulse Ox 100% on R/A; as6 23:30 BP 110 / 54; Pulse 66; Resp 20 S; Pulse Ox 100% on R/A; as6 08/27 00:30 BP 107 / 59; Pulse 74; Resp 18 S; Pulse Ox 100% on R/A; as6 01:35 BP 113 / 67; Pulse 65; Resp 16; Pulse Ox 100% on R/A; st1 08/26 21:27 Body Mass Index 34.75 (86.18 kg, 157.48 cm) lg3 MDM: 08/26 21:51 Patient medically screened. jr 23:56 Data reviewed: vital signs, nurses notes, lab test result(s), radiologic studies, [facility] ultrasound. Data interpreted: Pulse oximetry: on room air is 100 %. Interpretation: normal. Counseling: I had a detailed discussion with the patient and/or guardian regarding: the historical points, exam findings, and any diagnostic results supporting the discharge/admit diagnosis, lab results, radiology results, the need for further work-up and treatment in the hospital. ED course: Spoke with Dr. Erazo who will see patient on L\\T\\D floor. Will obs patient . 08/26 21:48 Order name: CBC with Diff; Complete Time: 23:31 [facility] 08/26 21:48 Order name: Basic Metabolic Panel; Complete Time: 22:34 [facility] 08/26 21:48 Order name: TS [facility] 08/26 22:37 Order name: Manual Differential; Complete Time: 23:31 [facility] 08/26 22:48 Order name: Packed RBC Leukored [facility] 08/26 23:06 Order name: Urine Dipstick-Ancillary; Complete Time: 23:13 [facility] 08/26 21:48 Order name: IV; Complete Time: 22:03 [facility] 08/26 22:23 Order name: Urine Dipstick-Ancillary (obtain specimen); Complete Time: 23:06 [facility] 08/26 22:23 Order name: Urine Test (obtain specimen); Complete Time: 23:06 [facility] 08/26 22:23 Order name: US Transvaginal Study (Probe) [facility] 08/26 23:06 Order name: Urine --Ancillary (enter results); Complete Time: 00:33 mw2 08/27 00:11 Order name: COVID-19/FLU A+B (Document "Date of Onset" if Symptomatic); Complete Time: 02:02 Administered Medications: 08/27 00:20 Drug: Premarin 25 mg Route: IV; Rate: calculated rate; Site: right antecubital; as6 01:37 Follow up: Response: No adverse reaction st1 01:37 Follow up: IV Status: Completed infusion st1 Disposition: 06:42 Co-signature as Attending Physician, Juanito Moran MD I agree with the assessment and dominique plan of care. Disposition Summary: 08/27/21 00:01 Hospitalization Ordered Hospitalization Status: Observation jr8 Provider: Kristopher Baron Condition: Stable jr8 Problem: new jr8 Symptoms: have improved jr8 Bed/Room Type: Standard [facility] Location[facility](08/27/21 01:26) Room Assignment: [facility](08/27/21 01:26) Diagnosis - Abnormal uterine and vaginal bleeding, unspecified jr8 - Anemia, unspecified jr8 Forms: - Medication Reconciliation Form jr8 - SBAR form jr8 Signatures: Dispatcher [employer] EDJuanito Niño MD MD cha Roszak, Josh, PA PA jr8 John Ring, NEW CLIENT BANKING SERVICES CLERK-C NEW CLIENT BANKING SERVICES CLERK-Cla1 Jennifer Kwok, RN RN cg Naty Espino, RN RN lg3 James Mathur RN RN as6 Kristen Tuttle RN st1 Corrections: (The following items were deleted from the chart) 01: 00:01 Telemetry/MedSurg (observation) jr8 01: 00:01 jr8
--- NOTE | 2021-08-27 00:02 | ER ---
Nurse's Notes [facility] Name: Trinity Ramos Age: 40 yrs Sex: Female : 1980 Arrival Date: 08/26/2021 Time: 20:46 Bed 5 Private MD: Diagnosis: Abnormal uterine and vaginal bleeding, unspecified;Anemia, unspecified Presentation: 08/26 21:27 Chief complaint: Patient states: extreme vaginal bleeding for 2 months with heavy lg3 clotting. now feeling weak and tired. pain to right rib area that radiates to back. Coronavirus screen: Client denies travel out of the [place] in the last 14 days. At this time, the client does not indicate any symptoms associated with coronavirus-19. Ebola Screen: No symptoms or risks identified at this time. Initial Sepsis Screen: Does the patient meet any 2 criteria? No. Patient's initial sepsis screen is negative. Does the patient have a suspected source of infection? No. Patient's initial sepsis screen is negative. Risk Assessment: Do you want to hurt yourself or someone else? Patient reports no desire to harm self or others. Onset of symptoms is unknown. 21:27 Method Of Arrival: Ambulatory lg3 21:27 Acuity: KRISTI 3 lg3 Triage Assessment: 21:29 General: Appears in no apparent distress. comfortable, Behavior is calm, cooperative. lg3 Pain: Complains of pain in right rib area Pain radiates to back Pain currently is 8 out of 10 on a pain scale. EENT: No deficits noted. No signs and/or symptoms were reported regarding the EENT system. Neuro: No deficits noted. Level of Consciousness is awake, alert, obeys commands, Oriented to person, place, time, situation. Cardiovascular: No deficits noted. Reports fatigue, Denies chest pain, shortness of breath. Respiratory: No deficits noted. Airway is patent Trachea midline Respiratory effort is even, unlabored, Respiratory pattern is regular, symmetrical. GI: No deficits noted. Abdomen is round non-distended. : No deficits noted. Reports urinary frequency, vaginal bleeding that is bright red, with clots, heavy flow. Derm: No deficits noted. No signs and/or symptoms reported regarding the dermatologic system. Skin is intact, is healthy with good turgor, Skin is dry. Musculoskeletal: No deficits noted. No signs and/or symptoms reported regarding the musculoskeletal system. Circulation, motion, and sensation intact. Capillary refill < 3 seconds, Range of motion: intact in all extremities. 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 - Social history:: Smoking status: Patient reports the use of cigarette tobacco products, smokes one-half pack cigarettes per day, Patient uses alcohol, occasionally. Screenin:33 Abuse screen: Denies threats or abuse. Denies injuries from another. Nutritional lg3 screening: No deficits noted. Tuberculosis screening: No symptoms or risk factors identified. Fall Risk None identified. Assessment: 22:14 General: Appears in no apparent distress. Behavior is calm, cooperative. Pain: as6 Complains of pain in back. Neuro: Level of Consciousness is awake, alert, obeys commands, Oriented to person, place, time, situation. Cardiovascular: Capillary refill < 3 seconds Patient's skin is warm and dry. Respiratory: Airway is patent Trachea midline Respiratory effort is even, unlabored, Respiratory pattern is regular, symmetrical. : Reports cramping, vaginal bleeding that is with clots, heavy flow. Vital Signs: 21:27 BP 125 / 74; Pulse 74; Resp 16 S; Temp 98.2(O); Pulse Ox 100% on R/A; Weight 86.18 kg lg3 (R); Height 5 ft. 2 in. (157.48 cm) (R); Pain 8/10; 22:30 BP 103 / 61; Pulse 81; Resp 20 S; Pulse Ox 100% on R/A; as6 23:30 BP 110 / 54; Pulse 66; Resp 20 S; Pulse Ox 100% on R/A; as6 08/27 00:30 BP 107 / 59; Pulse 74; Resp 18 S; Pulse Ox 100% on R/A; as6 01:35 BP 113 / 67; Pulse 65; Resp 16; Pulse Ox 100% on R/A; st1 08/26 21:27 Body Mass Index 34.75 (86.18 kg, 157.48 cm) lg3 ED Course: 08/26 20:46 Patient arrived in ED. kc5 21:29 Triage completed. lg3 21:29 Arm band placed on left wrist. lg3 21:45 James Mathur, RN is Primary Nurse. as6 21:46 Khris Radn PA is PHCP. jr8 21:46 Juanito Moran MD is Attending Physician. jr8 22:00 Inserted saline lock: 20 gauge in right antecubital area, using aseptic technique. as6 Blood collected. 22:03 TS Sent. as6 22:03 Basic Metabolic Panel Sent. as6 22:03 CBC with Diff Sent. as6 22:04 Bed in low position. Call light in reach. Side rails up X2. Adult w/ patient. Pulse ox as6 on. NIBP on. 22:22 TS Sent. st1 22:22 Basic Metabolic Panel Sent. st1 22:22 CBC with Diff Sent. st1 23:42 US Transvaginal Study (Probe) In Process Unspecified. EDMS 23:59 Kristopher Baron MD is Hospitalizing Provider. jr8 08/27 00:31 COVID-19/FLU A+B (Document "Date of Onset" if Symptomatic) Sent. as6 01:14 No provider procedures requiring assistance completed. Patient admitted, IV remains in as6 place. Administered Medications: 00:20 Drug: Premarin 25 mg Route: IV; Rate: calculated rate; Site: right antecubital; as6 01:37 Follow up: Response: No adverse reaction st1 01:37 Follow up: IV Status: Completed infusion st1 Outcome: 00:01 Decision to Hospitalize by Provider. jr8 01:47 Admitted to L \\T\\ D, accompanied by tech, family with patient, via wheelchair, room 271, as6 with chart. 01:47 Condition: stable 01:47 Instructed on the need for admit. 02:12 Patient left the ED. as6 Signatures: Dispatcher [employer] EDMS Khris Rand PA PA jr8 Naty Espino RN RN lg3 James Mathur, RN RN as6 Yesica Durham kc5 Kristen Tuttle, KLEBER RN st1
[2021-08-27] MEDS ORDERED: ESTROGENS,CONJ 25 MG IV ONE (00:04)
[2021-08-27] MEDS ORDERED: NA CHLORIDE 0.9% 50 ML ONE (00:09)
[2021-08-27] MEDS ORDERED: NA CHLORIDE 0.9% 250 ML ONE (00:09)
[2021-08-27 01:18] LABS: SARS-COV-2 RT PCR NEGATIVE (NEGATIVE)
[2021-08-27] MEDS ORDERED: NA CHLORIDE 0.9% 250 ML IV SCH (02:41)
[2021-08-27] MEDS ORDERED: ONDANSETRON 4 MG/2 ML VIAL IV PRN (02:41)
[2021-08-27] MEDS ORDERED: DIPHENHYDRAMINE 50 MG/ML VIAL IV ONE (02:41)
[2021-08-27] MEDS ORDERED: ACETAMINOPHEN 500 MG TAB PO ONE (02:41)
[2021-08-27] MEDS ORDERED: NA CHLORIDE 0.9% 100 ML ONE ×2 (02:42→05:50)
[2021-08-27 02:46] VITALS: O2SAT 100
[2021-08-27 03:17] VITALS: BMI 34.6
--- NOTE | 2021-08-27 10:39 | RAD REPORT ---
EXAM DESCRIPTION: US - Transvaginal Study Probe - 08/27/2021 12:23 am CLINICAL HISTORY: Anemia; Vaginal bleeding TECHNIQUE: Real-time transvaginal pelvic ultrasound with image documentation. Transvaginal imaging was used for better evaluation of the endometrium and adnexa. COMPARISON: No relevant prior studies available. FINDINGS: Uterus/cervix: The uterus is anteverted and measures 10.8 x 6 x 6.6 cm. 2 x 1.5 x 1.7 cm left posterior uterine body intramural fibroid. The endometrial stripe measures 15 mm in thickne ss. No demonstrable vascularity on color Doppler interrogation. Right ovary: The right ovary measures 3.3 x 2 x 2.2 cm. Normal follicular pattern. Normal flow. N ormal blood flow. Left ovary: The left ovary measures 4.1 x 3.2 x 3.2 cm. There is a 2.6 x 2.5 x 2.7 cm anechoic/simp le cyst. Normal blood flow. Free fluid: No free fluid. Bladder: Empty bladder which cannot be evaluated with this probe. IMPRESSION: 1. Uterine fibroid. 2. Top normal endometrial stripe which can be seen during the secretory phase of menstruation. No d emonstrable vascularity on color Doppler interrogation. 3. 2.7 cm left ovarian cyst. No follow-up imaging is recommended. Reference: Radiology 2019 Nov;293 (2):359-371 Electronically signed by: Felix Abreu MD 08/26/2021 11:55 PM CDT Due to temporary technical issues with the PACS/Fluency reporting system, reports are being signed by the in house radiologist without review as a courtesy to ensure prompt reporting. The interpreting r adiologist is fully responsible for the content of the report.
[2021-08-27 12:22] LABS: Hematocrit 25.8 % (36.0-45.0)
[2021-08-27 14:49] VITALS: BP 110/66; TEMP 97.4
--- NOTE | 2021-08-28 05:31 | DS ---
Date of Discharge: 08/27/2021 This is a short-term stay discharge summary. Final Diagnoses: 1.Abnormal uterine bleeding, uterine fibroids. 2.Chronic, severe anemia. Discharge Condition: Stable and improved. Disposition: Home. Prescription: No written prescription, however encouraged [id number] iron 1 pill by mouth 1 to twice daily with food. Discharge Diet: Regular diet, however discussed iron-rich food intake. Activities: Increase activities as tolerated. Brief History: Trinity Richard is a 40-year-old female, G5, P3, AB2, had prior 3 C sections, fo llowed by BTL about 8 years ago and she suffered a 2-month history of daily vaginal bleeding, which r equired her to change her vaginal padding 1 pad every 1-2 hours. Often the padding saturated with bl ood including passage of blood clots. During this 2 months period she has suffered dizziness, weakne ss, and tiredness. Condition has worsened, she decided to come to the emergency department for evalu ation. She had a similar history 5-6 years ago where she received a blood product transfusion, diagn osed with uterine fibroids and was sent home with the followup instructions. However, she was noncom pliant and I do believe has to do with insurance issues, she never had a followup. She was at the em ergency room with the above complaint with a hemoglobin of 5 and vaginal bleeding. Ultrasound perfor med indeed showing a 10.8 cm x 6 cm x 6.6 cm posterior uterine body fibroid. Otherwise, anatomy was normal. She received 2 units of O positive blood transfusion and she also received 1 dose of IV Pavel pierre 25 mg. After receiving the Premarin, her vaginal bleeding has subsided. After 2 units of blood product transfusion, she had stated that there is a dramatic improvement and she has felt "much bett er." Her hemoglobin has returned to its value of high 7 level and during the time of my evaluation s he has no vaginal bleeding. Overall status including her temperature, blood pressure were all normal . Detailed bedside discussion regarding the followup, ultrasound finding were all discussed. 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 At the bedside, she was informed and stresse d the fact that she must have a followup with a checkup with cancer screening such as Pap smear and e ndometrial biopsy. Her endometrial stripe was somewhat thickened to 15 mm in size, therefore I stres sed the importance of screening for biopsy to rule out other diseases. At this time right now we can just not assume owning the uterine fibroid causing the problem. The patient expressed understanding with the above problem and she had no further questions. She was sent home in good and stable condi tion and willing to comply with the followup. WAYNE/FOREIGN Voice ID: [id number] Report ID: [id number]
== END 2021-08-27 15:22 | disposition home or self-care (01) ==
LOC: ER 20:44 → ERHOLD 08-27 00:44 → 2ND-WC 08-27 01:39
PROVIDERS: ADMIT Obstetrics & Gynecology; ATTEND Obstetrics & Gynecology
PROC: 30233N1 Transfusion of Nonautologous Red Blood Cells into Peripheral Vein, Percutaneous Approach (ICD-10-PCS; principal; 2021-08-27)
DX: N93.9 Abnormal uterine and vaginal bleeding, unspecified (principal); D25.9 Leiomyoma of uterus, unspecified; D64.9 Anemia, unspecified; Z20.822 Contact with and (suspected) exposure to COVID-19
CPT/HCPCS: 0240U; 36415; 76830; 80048; 81003; 81025; 85014; 85018; 85025; 86850; 86900; 86901; 96365; 99285; G0378; J1200; J1410; J7050; P9016

== ENCOUNTER 2021-12-21 13:49 | Emergency (ER) | payer SELFPAY ==
--- OUTSIDE RECORDS SUMMARY | 2021-12-21 13:53 | XMS REPORT | Continuity of Care Document ---
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, R Attending Clinician Arabella AGUERO Attending Clinician Unavailable Lab, Fam Pob I Attending Clinician Unavailable Doctor Unassigned, Name Attending Clinician Unavailable Payers Payer Name Policy Type Policy Number Effective Date Expiration Date S ource Problems Condition Condition Condition Status Onset Resolution Last Treating Co mments Source Name Details Category Date Date Treatment Clinician Date Menorrhagi Menorrhagi Disease Active U nivers a with a with 4-07 ity of regular regular 00:00: [place] cycle cycle 00 Medical Branch Encounter Encounter Disease Active Uni vers for for 4-07 [place] of surve[place] ce of 00 Medical other other Branch contracept contracept sorin sorin Class 2 Class 2 Disease Active Univers obesity obesity 07 ity of due to due to 00:00: [place] excess excess 00 Medical calories calories Branch with body with body mass index mass index (BMI) of (BMI) of 38.0 to 38.0 to 38.9 in 38.9 in adult, adult, unspecifie unspecifie d whether d whether serious serious comorbidit comorbidit y present y present BMI BMI Disease Active Univers 38.0-38.9, 38.0-38.9, 4-07 it y of adult adult 00:00: [place] 00 Medical Branch Fibroids Fibroids Disease Active Unive rs 9-12 ity of 00:00: [place] 00 Medical Branch Irregular Irregular Disease Active Uni vers menstrual menstrual 5-31 ity of bleeding bleeding 00:00: [place] [address] Medical Branch Obesity Obesity Disease Active Univers (BMI (BMI 1-30 ity of 30.0-34.9) 30.0-34.9[place] Well woman Well woman Disease Active U nivers exam exam 1-30 ity of 00:00: [place] Medical Branch History of History of Disease Active U nivers bilateral bilateral 1-30 ity of tubal tubal 00:00: [place] ligation ligation 00 Medica l Branch Former Former Disease Active Univers tobacco tobacco 1-30 ity of use use 00:00: [place] [address] Medical [place] Allergies, Adverse Reactions, Alerts Allergy Allergy Status Severity Reaction(s) Onset Inactive Treating Comm ents Source Name Type Date Date Clinician NO KNOWN Drug Active Univers ALLERGIE Class ity of S [facility] Social History Social Habit Start Date Stop Date Quantity Comments Source Exposure to Not sure [facility] SARS-CoV-2 [place] Medical (event) Branch History SDOH University o f Alcohol Frequency [facility] edical Branch History SDOH University o f Alcohol Std [place] Medical Drinks Branch History SDOH University o f Alcohol Binge [place] Medic al Branch Alcohol intake 2021-09-03 2021-09-03 Current drinker of Un iversity of 00:00:00 00:00:00 alcohol (finding) [facility] Cigarettes smoked 2016-06-28 2016-06-28 Univers ity of current (pack per 00:00:00 00:00:00 [facility] ) - Reported Branch Cigarette 2016-06-28 2016-06-28 University of pack-years 00:00:00 00:00:00 [facility] Alcohol Comment 2016-06-28 2016-06-28 Occassionally Univer sity of 00:00:00 00:00:00 [facility] Tobacco use and 2016-06-28 2016-06-28 Never used Universit y of exposure 00:00:00 00:00:00 [facility] History of 2015-06-18 Cigarette Smoker Universi ty of tobacco use 00:00:00 [facility] Sex Ass[birth year] At [birth year] Universit y of 00:00:00 00:00:00 [facility] Smoking Status Start Date Stop Date Source Former smoker 2016-06-28 00:00:00 2016-06-28 00:00:00 Universi ty of [facility] Medications Ordered Filled Start Stop Current Ordering Indication Dosage Frequency Signature Comments Components Source Medication Medication Date Date Medication? Clinician (SIG) Name Name ferrous Yes [id number] 325mg Take 1 Un timi sulfate 325 4-08 tablet by ity of mg (65 mg 00:00: mouth 2 [place] iron) 00 (two) Medical tablet times Branch daily. ascorbic Yes [id number] 500mg Take 1 U nivers acid, 4-08 tablet by ity of vitamin C, 00:00[place] 00 (three) Medical tablet times [place] daily. IRON, Yes Take by [facility] [place] [facility] FERROUS 4-07 mouth. ity of SULFATE, 15:32: [place] ORAL 13 [facility] Immunizations Ordered Filled Immunization Date Status Comments Sour e Immunization Name Name TDAP (ADACEL) 2007-12-29 Completed [facility] VACCINE 00:00:00 [facility] Procedures This patient has no known procedures. Encounters Start End Encounter Admission Attending Care Care Encounter Source Date/Time Date/Time Type Type Clinicians Facility Department ID 2021 2021 Telephone Eliceo [facility] [id number] [facility] [place] [facility] 00:00:00 00:00:00 Justice Bell JOURNEYMAN GLAZ[id number] Edwar as MATERNAL [id number] Med ical & CHILD [address] [place] [address] 2021-09-03 2021-09-03 Outpatient R ELICEO [facility] [id number] Univers 15:30:00 16:05:53 JUSTICE marianoy o f [facility] 2021-09-03 2021-09-03 Outpatient R [facility] [id number] Univers 15:00:00 15:00:00 [id number] [id number] [facility] 2020-07-28 2020-07-28 Laboratory Lab, [facility] [id number] 12:55:09 13:15:09 Only Fam Pob I Health [id number] [place] [id number] Professio [phone] nal [address] 2020-04-26 2020-04-26 Laboratory Lab, Adc [facility] [id number] 10:37:02 10:57:02 Only Fam Pob I Health [id number] [place] [id number] [place] [id number] nal [address] 2020-04-26 2020-04-26 Letter Doctor DONNIE [id number] 00:00:00 00:00:00 (Out) Unassigned, LINDSAY [id number] [place] [facility] [phone] [id number] Results This patient has no known results.
[2021-12-21 15:09] LABS: Absolute Lymphocytes (CBC) 1.8 K/uL (0.7-4.9); Hematocrit 19.1 % (36.0-45.0); Lymphocytes % 37.3 % (15.3-44.8); MCV 56.3 fL (80-100)
[2021-12-21 15:19] LABS: Potassium 3.3 mmol/L (3.5-5.1)
[2021-12-21] MEDS ORDERED: POTASSIUM CL SA 10 MEQ TAB PO ONE (16:45)
[2021-12-21] MEDS ORDERED: NA CHLORIDE 0.9% 250 ML ONE ×2 (17:41→20:18)
--- NOTE | 2021-12-21 17:47 | RAD REPORT ---
EXAM DESCRIPTION: US - Transvaginal Study Probe - 12/21/2021 5:16 pm CLINICAL HISTORY: VAGINAL BLEEDING COMPARISON: Transvaginal Study Probe dated 08/26/2021 TECHNIQUE: Endovaginal sonography was performed. FINDINGS: Endometrium is 11 mm with no focal endometrial mass or polyp identified. Endometrium- myom etrium interface is preserved. No focal myometrial mass identifiable. Prior imaging showed an approxi mately 2 centimeter subtle slightly hypoechoic mass posterior mid uterus. Finding is less defined on the current study. Patient does have heterogeneous myometrium tissue. There is no evidence for an enl arging myometrial mass. No blood or fluid in the cul de sac. Uterus is approximately 11.5 x 6.1 x 6.6 cm. 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 Both ovaries are identified and normal in size. Blood flow seen in the bilateral ovarian stroma. A 3. 3 centimeter right ovarian cyst is present with no suspicious characteristics. A 1.4 centimeter left ovarian cyst is present also without suspicious characteristics. IMPRESSION: Normal thickness endometrium with no focal endometrial abnormality identifiable. Bilateral simple ovarian cysts measuring 3.3 cm on the right and 1.4 cm on the left. The 2 cm posterior fibroid seen on prior imaging is not clearly seen on today's study. The myometrium is heterogeneous and the fibroid may be currently isoechoic on today's study. No worrisome myometria l finding.
[2021-12-21 17:50] LABS: SARS-CoV-2 Antigen Rapid Res Negative (Negative)
[2021-12-21] MEDS ORDERED: ACETAMINOPHEN 500 MG TAB ONE (22:50)
--- NOTE | 2021-12-21 23:08 | EDPHYS ---
Physician Documentation [facility] Dat Name: Trinity Ramos Age: 41 yrs Sex: Female : 1980 Arrival Date: 12/21/2021 Time: 13:51 Bed 8 Private MD: Juanito Parr HPI: 12/21 23:04 This 41 yrs old Female presents to ER via Ambulatory with complaints of kb Vaginal Bleeding, Weakness. 23:04 The patient presents with vaginal bleeding that is. Onset: The symptoms/episode kb began/occurred 3 month(s) ago. Modifying factors: The symptoms are alleviated by nothing, the symptoms are aggravated by nothing. Associated signs and symptoms: Pertinent positives: vaginal bleeding. The patient has not experienced similar symptoms in the past. The patient has not recently seen a physician. Patient states she has had issues with abnormal vaginal bleeding since 2016. States that she has episodes where she starts bleeding and she has vaginal bleeding for a long period of time. Has had to have blood transfusions in the past for this. She was admitted in July for similar complaints, had a blood transfusion and was discharged home to follow-up outpatient. Patient states she followed up at the [facility] clinic, had multiple blood test done, but no plan for treatment. States she has been having vaginal bleeding for approximately 3 months this time. This week she has been more fatigued than normal, weak with intermittent palpitations.. 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 - Social history:: Smoking status: Patient denies any tobacco usage or history of. ROS: 23:03 Constitutional: Negative for fever, chills, and weight loss. kb 23:03 Constitutional: Positive for fatigue. 23:03 Cardiovascular: Positive for palpitations. 23:03 Neuro: Positive for weakness. 23:03 All other systems are negative. Exam: 23:03 Constitutional: This is a well developed, well nourished patient who is awake, alert, kb and in no acute distress. Head/Face: Normocephalic, atraumatic. ENT: Moist Mucous membranes Chest/axilla: Normal chest wall appearance and motion. Cardiovascular: Regular rate and rhythm with a normal S1 and S2. No gallops, murmurs, or rubs. No pulse deficits. Respiratory: Respirations even and unlabored. No increased work of breathing. Talking in full sentences Abdomen/GI: Soft, non-tender. No distention Skin: Warm, dry with normal turgor. Normal color. MS/ Extremity: Pulses equal, no cyanosis. Neurovascular intact. Full, normal range of motion. Neuro: Awake and alert, GCS 15, oriented to person, place, time, and situation. Moves all extremities. Normal gait. Psych: Awake, alert, with orientation to person, place and time. Behavior, mood, and affect are within normal limits. 23:15 : Pelvic Exam: External exam: is normal, Speculum exam: mild bleeding, the nurse was kb present for the exam. Vital Signs: 14:17 BP 121 / 64; Pulse 72; Resp 18; Temp 98.0; Pulse Ox 100% ; Weight 90.72 kg; Height 5 ap3 ft. 2 in. (157.48 cm); 16:11 BP 97 / 53; Pulse 62; Resp 12; Pulse Ox 100% on R/A; tp1 17:38 BP 103 / 41; Pulse 61; Resp 17; Pulse Ox 100% on R/A; tp1 18:55 BP 111 / 56; Pulse 63; Resp 14; Pulse Ox 100% on R/A; tp1 14:17 Body Mass Index 36.58 (90.72 kg, 157.48 cm) ap3 MDM: 14:21 Patient medically screened. kb 23:02 Data reviewed: vital signs, nurses notes. Data interpreted: Pulse oximetry: on room air kb is 100 %. Interpretation: normal. Counseling: I had a detailed discussion with the patient and/or guardian regarding: the historical points, exam findings, and any diagnostic results supporting the discharge/admit diagnosis, lab results, the need for outpatient follow up, an OB/Gyne specialist, to return to the emergency department if symptoms worsen or persist or if there are any questions or concerns that arise at home. ED course: Discussed case with Dr Moran. Agrees with transfusion of 2 units prbc and discharge for pt to follow up outpatient. . 12/21 14:21 Order name: CBC with Diff; Complete Time: 15:20 kb 12/21 14:21 Order name: Basic Metabolic Panel; Complete Time: 15:20 kb 12/21 14:21 Order name: Type And Screen kb 12/21 15:31 Order name: SARS RAPID; Complete Time: 17:57 kb 12/21 15:33 Order name: Bb Add On bd 12/21 15:37 Order name: Packed RBC Leukored EDMS 12/21 14:21 Order name: IV Start; Complete Time: 14:53 kb 12/21 15:28 Order name: US Transvaginal Study (Probe); Complete Time: 17:49 kb 12/21 17:19 Order name: Pelvic Exam Setup; Complete Time: 17:37 kb Administered Medications: 16:44 Drug: Potassium Chloride 20 mEq Route: PO; tp1 17:37 Follow up: Response: No adverse reaction tp1 18:11 Follow up: Response: No adverse reaction tp1 22:44 Drug: Tylenol 1000 mg Route: PO; aa9 22:45 Follow up: Response: No adverse reaction aa9 Disposition Summary: 12/21/21 23:06 Discharge Ordered Location: Home kb Condition: Stable kb Diagnosis - Abnormal uterine and vaginal bleeding, unspecified kb Followup: kb - With: Emergency Department - When: As needed - Reason: Worsening of condition Followup: kb - With: Private Physician - When: 2 - 3 days - Reason: Recheck today's complaints, Continuance of care, Re-evaluation by your physician Discharge Instructions: - Discharge Summary Sheet kb - Abnormal Uterine Bleeding, [id number] kb Forms: - Medication Reconciliation Form kb - Thank You Letter kb - Antibiotic Education kb - Prescription Opioid Use kb Signatures: Dispatcher [employer] EDBlank Nance, ENGINEER BOOSTER AND EXHAUSTER-C ENGINEER BOOSTER AND EXHAUSTER-Tatyana Renteria RN RN ap3 Sylvia Gonzalez RN RN tp1 Imelda Gutierrez RN RN aa9
--- NOTE | 2021-12-21 23:08 | ER ---
Nurse's Notes [facility] Dat Name: Trinity Ramos Age: 41 yrs Sex: Female : 1980 Arrival Date: 12/21/2021 Time: 13:51 Bed 8 Private MD: Diagnosis: Abnormal uterine and vaginal bleeding, unspecified Presentation: 12/21 14:17 Chief complaint: Patient states: she has been having vaginal bleeding pretty ap3 consistently for approx 3 months now. patient states she was evaluated here a few months ago, and required a blood transfusion. She reports the treatment she received here stopped the bleeding for a week, however after a week passed she has been bleeding since. patient states she is feeling week and fatigued, with periodic feeling of a racing heart. Coronavirus screen: At this time, the client does not indicate any symptoms associated with coronavirus-19. Ebola Screen: No symptoms or risks identified at this time. Initial Sepsis Screen: Does the patient meet any 2 criteria? No. Patient's initial sepsis screen is negative. Does the patient have a suspected source of infection? No. Patient's initial sepsis screen is negative. Risk Assessment: Do you want to hurt yourself or someone else? Patient reports no desire to harm self or others. Onset of symptoms was August 2021. 14:17 Method Of Arrival: Ambulatory ap3 14:17 Acuity: KRISTI 3 ap3 Triage Assessment: 14:19 General: Appears in no apparent distress. Behavior is cooperative, anxious. Pain: ap3 Denies pain. Neuro: Level of Consciousness is awake, alert, obeys commands. Cardiovascular: Patient's skin is warm and dry. Respiratory: Airway is patent Respiratory effort is even, unlabored. GI: Reports nausea. : Reports vaginal bleeding that is bright red, with clots. 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 - Social history:: Smoking status: Patient denies any tobacco usage or history of. Screenin:20 Abuse screen: Denies threats or abuse. Nutritional screening: No deficits noted. ap3 Tuberculosis screening: No symptoms or risk factors identified. 21:09 Fall Risk None identified. aa9 Assessment: 15:50 General: Appears in no apparent distress. comfortable, Behavior is calm, cooperative. tp1 Pain: Denies pain. Neuro: Level of Consciousness is awake, alert, obeys commands, Oriented to person, place, time, situation. Cardiovascular: Reports fatigue, increased heart rate Denies Capillary refill < 3 seconds Patient's skin is warm and dry. Respiratory: Reports shortness of breath Airway is patent Respiratory effort is even, unlabored. GI: Abdomen is round non-distended. : Reports bleeding for the past 2-3 months. states bleeding has been heavy-moderate and has been using 3 pads an hour. reports blood clots for the past 2-3 weeks. Denies cramping. EENT: No signs and/or symptoms were reported regarding the EENT system. EENT: Lid(s) pale. Derm: Skin is pale. Musculoskeletal: Circulation, motion, and sensation intact. 16:40 Reassessment: Patient appears in no apparent distress at this time. No changes from tp1 previously documented assessment. Patient and/or family updated on plan of care and expected duration. Pain level reassessed. Patient is alert, oriented x 3, equal unlabored respirations, skin warm/dry/pink. 17:50 Reassessment: Patient appears in no apparent distress at this time. No changes from tp1 previously documented assessment. Patient and/or family updated on plan of care and expected duration. Pain level reassessed. Patient is alert, oriented x 3, equal unlabored respirations, skin warm/dry/pink. ADMINISTERED FIRST UNIT OF RBC; please refer to Transfusion sheet for vitals. 18:55 Reassessment: Patient appears in no apparent distress at this time. No changes from tp1 previously documented assessment. Patient and/or family updated on plan of care and expected duration. Pain level reassessed. Patient is alert, oriented x 3, equal unlabored respirations, skin warm/dry/pink. Patient denies pain at this time. 23:23 General: blood transfusions preformed, see paper charting for vitals . as6 Vital Signs: 14:17 BP 121 / 64; Pulse 72; Resp 18; Temp 98.0; Pulse Ox 100% ; Weight 90.72 kg; Height 5 ap3 ft. 2 in. (157.48 cm); 16:11 BP 97 / 53; Pulse 62; Resp 12; Pulse Ox 100% on R/A; tp1 17:38 BP 103 / 41; Pulse 61; Resp 17; Pulse Ox 100% on R/A; tp1 18:55 BP 111 / 56; Pulse 63; Resp 14; Pulse Ox 100% on R/A; tp1 14:17 Body Mass Index 36.58 (90.72 kg, 157.48 cm) ap3 ED Course: 13:51 Patient arrived in ED. rg4 13:59 Blank Minor FNP-C [facility]. kb 13:59 Juanito Moran MD is Attending Physician. kb 14:19 Triage completed. ap3 14:20 Arm band placed on right wrist. ap3 14:44 Initial lab(s) drawn, by me, sent to lab. T\T\S collected, blood band applied to patient. dh3 Inserted saline lock: 20 gauge in left antecubital area, using aseptic technique. Blood collected. 15:36 Tabitha Jones, KLEBER is Primary Nurse. kr3 15:48 Devi Kwok RN is Primary Nurse. vg1 16:44 Bb Add On Sent. tp1 16:45 Client placed on continuous cardiac and pulse oximetry monitoring. NIBP monitoring tp1 applied. 17:18 US Transvaginal Study (Probe) In Process Unspecified. EDMS 17:37 Assist provider with pelvic exam: Set up pelvic tray. Performed by Blank Minor tp1 KENDRA Patient tolerated well. 19:23 Primary Nurse role handed off by Devi Kwok RN mw2 19:37 James Mathur RN is Primary Nurse. as6 21:10 Patient has correct armband on for positive identification. Bed in low position. Call aa9 light in reach. Adult w/ patient. 23:24 IV discontinued, intact, bleeding controlled, No redness/swelling at site. Pressure as6 dressing applied. Administered Medications: 16:44 Drug: Potassium Chloride 20 mEq Route: PO; tp1 17:37 Follow up: Response: No adverse reaction tp1 18:11 Follow up: Response: No adverse reaction tp1 22:44 Drug: Tylenol 1000 mg Route: PO; aa9 22:45 Follow up: Response: No adverse reaction aa9 Medication: 23:23 VIS not applicable for this client. as6 Outcome: 23:06 Discharge ordered by MD. meza 23:23 Discharged to home ambulatory, with family. as6 23:23 Condition: stable 23:23 Discharge instructions given to patient, Instructed on discharge instructions, follow up and referral plans. Demonstrated understanding of instructions, follow-up care. 23:24 Patient left the ED. as6 Signatures: Dispatcher [employer] EDMS Blank Minor, VINCE-C COMMUNITY OUTREACH SPECIALIST-Gricelda Sewell rg4 Piper Jesus 3 Tatyana Samaniego RN RN ap3 Evita Delaney mw2 Devi Kwok, RN RN vg1 James Mathur RN RN as6 Sylvia Gonzalez RN RN tp1 Imelda Gutierrez RN RN aa9 Tabitha Jones, RN RN kr3 Corrections: (The following items were deleted from the chart) 18:26 17:50 Reassessment: Patient appears in no apparent distress at this time. No changes tp1 from previously documented assessment. Patient and/or family updated on plan of care and expected duration. Pain level reassessed. Patient is alert, oriented x 3, equal unlabored respirations, skin warm/dry/pink. administered 1 unit of RBC tp1 18:30 13:50 General: Appears in no apparent distress. comfortable, Behavior is calm, tp1 cooperative, tp1 18:30 13:50 Pain: Denies pain. tp1 tp1 18:30 13:50 Neuro: Level of Consciousness is awake, alert, obeys commands, Oriented to tp1 person, place, time, situation, tp1 18:30 13:50 Cardiovascular: Reports fatigue, increased heart rate Denies Capillary refill < 3 tp1 seconds Patient's skin is warm and dry. tp1 18:30 13:50 Respiratory: Reports shortness of breath Airway is patent Respiratory effort is tp1 even, unlabored, tp1 18:30 13:50 GI: Abdomen is round non-distended, tp1 tp1 18:30 13:50 : Reports bleeding for the past 2-3 months. states bleeding has been tp1 heavy-moderate and has been using 3 pads an hour. reports blood clots for the past 2-3 weeks. Denies cramping tp1 18:30 13:50 EENT: No signs and/or symptoms were reported regarding the EENT system. tp1 tp1 18:30 13:50 Derm: Skin is pale, tp1 tp1 18:30 13:50 EENT: Lid(s) pale. tp1 tp1 18:30 13:50 Musculoskeletal: Circulation, motion, and sensation intact. tp1 tp1 18:30 14:40 Reassessment: Patient appears in no apparent distress at this time. No changes tp1 from previously documented assessment. Patient and/or family updated on plan of care and expected duration. Pain level reassessed. Patient is alert, oriented x 3, equal unlabored respirations, skin warm/dry/pink. tp1 18:30 15:40 Reassessment: Patient appears in no apparent distress at this time. No changes tp1 from previously documented assessment. Patient and/or family updated on plan of care and expected duration. Pain level reassessed. Patient is alert, oriented x 3, equal unlabored respirations, skin warm/dry/pink. tp1
[2021-12-21 23:43] VITALS: TEMP 98; O2SAT 100
[2021-12-21 23:54] VITALS: BP 111/56
== END 2021-12-21 23:24 | disposition home or self-care (01) ==
LOC: ER 13:49
PROC: 30233N1 Transfusion of Nonautologous Red Blood Cells into Peripheral Vein, Percutaneous Approach (ICD-10-PCS; principal; 2021-12-21)
DX: N93.9 Abnormal uterine and vaginal bleeding, unspecified (principal)
CPT/HCPCS: 36415; 76830; 80048; 85025; 86850; 86900; 86901; 87811; 99284; J7050; P9016

== ENCOUNTER 2022-06-04 17:30 | Emergency (ER) | payer SELFPAY ==
--- OUTSIDE RECORDS SUMMARY | 2022-06-04 17:33 | XMS REPORT | Continuity of Care Document ---
:1980 Author Organization [facility] t Address [address] [place] [address] Care Team Providers Name Role Phone JUSTICE AGUERO Primary Care Physician Unavailable JUSTICE AGUERO Attending Clinician Unavailable Justice Fierro Attending Clinician Doctor Unassigned, [place] Attending Clinician Unavailable Lab, Adc Fam Pob I Attending Clinician Unavailable Liza Bowers Attending Clinician LIZA BELL Attending Clinician Unavailable DONNIE ROOT Attending Clinician Unavailable Donnie Root PA-C Attending Clinician Payers Payer Name Policy Type Policy Number Effective Date Expiration Date S ource Problems Condition Condition Condition Status Onset Resolution Last Treating Co mments Source Name Details Category Date Date Treatment Clinician Date Menorrhagi Menorrhagi Disease Active U nivers a with a with 09-03 ity of regular regular 00:00: [place] cycle cycle 00 Medical Branch Encounter Encounter Disease Active Uni vers for for 09-03 ity of surve[place] ce of 00 Medical other other Branch contracept contracept sorin sorin Class 2 Class 2 Disease Active Univers obesity obesity 09-03 ity of due to due to 00:00: [...] 4-07 it y of adult adult 00:00: [place] 00 Medical Branch Fibroids Fibroids Disease Active Unive rs 9-12 ity of 00:00: [place] [address] [facility] [place] Irregular Irregular Disease Active Uni vers menstrual menstrual 5-31 ity of bleeding bleeding 00:00: [place] [address] [facility] [place] Obesity Obesity Disease Active Univers (BMI (BMI 1-30 ity of 30.0-34.9) 30.0-34.9[place] Well woman Well woman Disease Active U nivers exam exam 1-30 ity of 00:00: [place] [address] [facility] [place] History of History of Disease Active U nivers bilateral bilateral 1-30 ity of tubal tubal 00:00: [place] ligation ligation 00 Medica l Branch Former Former Disease Active Univers tobacco tobacco 1-30 ity of use use 00:00: [address] Allergies, Adverse Reactions, Alerts Allergy Allergy Status Severity Reaction(s) Onset Inactive Treating Comm ents Source Name Type Date Date Clinician NO KNOWN Drug Active Univers ALLERGIE Class ity of S [facility] Social History Social Habit Start Date Stop Date Quantity Comments Source Exposure to Not sure University of SARS-CoV-2 [place] Medical (event) Branch History SDOH University o f Alcohol Frequency [facility] edical Branch History SDOH University o f Alcohol Std [place] Medical Drinks Branch History SDID University o f Alcohol Binge [place] Medic al Branch Alcohol intake 2021-09-03 2021-09-03 Current drinker of Un iversity of 00:00:00 00:00:00 alcohol (finding) [facility] edical Branch Cigarettes smoked 2016-06-28 2016-06-28 Univers ity of current (pack per 00:00:00 00:00:00 [facility] ) - Reported Branch Cigarette 2016-06-28 2016-06-28 University of pack-years 00:00:00 00:00:00 [facility] Alcohol Comment 2016-06-28 2016-06-28 Occassionally Univer sity of 00:00:00 00:00:00 [facility] Tobacco use and 2016-06-28 2016-06-28 Never used Universit y of exposure 00:00:00 00:00:00 [facility] History of 2015-06-18 Cigarette Smoker [facility] tobacco use 00:00:00 [facility] Sex Ass[birth year] At [birth year] Universit y of 00:00:00 00:00:00 [facility] Smoking Status Start Date Stop Date Source Former smoker 2016-06-28 00:00:00 2016-06-28 00:00:00 Universi ty of [facility] Medications Ordered Filled Start Stop Current Ordering Indication Dosage Frequency Signature Comments Components Source Medication Medication Date Date Medication? Clinician (SIG) Name Name ferrous Yes [id number] 325mg Take 1 Un timi sulfate 325 4-08 tablet by ity of mg (65 mg 00:00: mouth 2 [place] iron) 00 (two) Medical tablet times Branch daily. ascorbic Yes [id number] 500mg Take 1 U nivers acid, 4-08 tablet by ity of vitamin C, 00:00[place] 500 mg 00 (three) Medical tablet times Branch daily. IRON, Yes Take by [facility] FERROUS 4-07 mouth. ity of SULFATE, 15:32: [place] ORAL 13 [facility] Immunizations Ordered Filled Immunization Date Status Comments Sour e Immunization Name Name TDAP (ADACEL) 2007-12-29 Completed [facility] VACCINE 00:00:00 [facility] Procedures This patient has no known procedures. 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 [place] as MATERNAL [phone] Med ical & CHILD [address] [place] [address] 2021-09-03 2021-09-03 Orders Doctor DONNIE [id number] Univers 00:00:00 00:00:00 Only Unassigned, LINDSAY [id number] ity of [place] [facility] [id number] [place] as [phone] [address] 2020-07-28 2020-07-28 Laboratory Lab, [facility] Fam Pob I [facility] [id number] Univers 12:55:09 13:15:09 Only Milagros Liza [address] [id number] ity of [place] [id number] [place] as Professio [phone] Az dical [address] Office Building One 2020-07-28 2020-07-28 Laboratory Lab, [facility] [id number] 12:55:09 13:15:09 Only Fam Pob I Health [id number] [place] [phone] [facility] Office Building One 2020-07-28 2020-07-28 Outpatient R [facility] [id number] Univers 13:00:00 13:00:00 LIZA mahan [facility] 2020-04-26 2020-04-26 Outpatient R [facility] [id number] Univers 11:00:00 11:00:00 DONNIE mahan [facility] 2020-04-26 2020-04-26 Laboratory Lab, [facility] Fam Pob I [place] 1.2. [id number] [facility] 10:37:02 10:57:02 Only RootDonnie [id number] ity of [place] [id number] [place] as Professio [phone] Az dical [address] Office Building [facility] 2020-04-26 2020-04-26 Laboratory Lab, [facility] [id number] 10:37:02 10:57:02 Only Fam Pob I Health [id number] [place] [id number] Professio [phone] [place] [address] Office Building [facility] 2020-04-26 2020-04-26 Letter Doctor DONNIE [id number] Univers 00:00:00 00:00:00 (Out) Unassigned, LINDSAY [id number] ity of [place] [facility] [id number] [place] as [phone] [address] 2020-04-26 2020-04-26 Letter Doctor DONNIE [id number] 00:00:00 00:00:00 (Out) Unassigned, LINDSAY [id number] [place] [facility] [phone] [facility] Results This patient has no known results.
[2022-06-04 19:05] LABS: Absolute Lymphocytes (CBC) 2.1 K/uL (0.7-4.9); Lymphocytes % 30.8 % (15.3-44.8); MCV 55.9 fL (80-100); MPV 8.5 fL (7.6-11.3); RBC Red Blood Cell Count 3.58 M/uL (3.86-4.86)
[2022-06-04 19:09] LABS: Anisocytosis 1+; Blood Morphology Comment NOTED (NOT SEEN); Hypochromasia 3+; Platelet Estimate ADEQ; White Blood Cell Scan OK (OK)
[2022-06-04 19:25] LABS: Albumin 4.1 g/dL (3.4-5.0); Bilirubin Total 0.5 mg/dL (0.2-1.0); Potassium 3.3 mmol/L (3.5-5.1); Protein, Total 8.1 g/dL (6.4-8.2)
--- NOTE | 2022-06-04 19:27 | ER ---
Nurse's Notes [facility] Name: Trinity Ramos Age: 41 yrs Sex: Female : 1980 Arrival Date: 06/04/2022 Time: 17:35 Bed 5 Private MD: Diagnosis: Iron deficiency anemia secondary to blood loss (chronic);Dysmenorrhea, unspecified Presentation: 06/04 18:09 Chief complaint: Patient states: pt with multiple complaints including menstrual kb3 bleeding x2 months, multiple flea bites x4 day, right-sided pain from just underneath the breast to lower abdomen. Pt also reports 3 episodes of diarrhea today. Coronavirus screen: Vaccine status: Patient reports receiving the 2nd dose of the covid vaccine. Client denies travel out of the [place] in the last 14 days. Ebola Screen: Patient negative for fever greater than or equal to 101.5 degrees Fahrenheit, and additional compatible Ebola Virus Disease symptoms Patient denies exposure to infectious person. Patient denies travel to an Ebola-affected area in the 21 days before illness onset. Initial Sepsis Screen: Does the patient meet any 2 criteria? No. Patient's initial sepsis screen is negative. Does the patient have a suspected source of infection? No. Patient's initial sepsis screen is negative. Risk Assessment: Do you want to hurt yourself or someone else? Patient reports no desire to harm self or others. Onset of symptoms is unknown. 18:09 Method Of Arrival: Ambulatory kb3 18:09 Acuity: KRISTI 3 kb3 Triage Assessment: 18:14 General: Appears in no apparent distress. Behavior is calm, cooperative. Pain: kb3 Complains of pain in anterior aspect of right lateral abdomen Pain does not radiate. Pain currently is 7 out of 10 on a pain scale. Quality of pain is described as aching, sharp, tender. 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 - Social history:: Smoking status: Patient reports the use of cigarette tobacco products, smokes one-half pack cigarettes per day. Screenin:56 [facility] ED Fall Risk Assessment (Adult) Score/Fall Risk Level 0 - 2 = Low Risk hb Oriented to surroundings, Maintained a safe environment. Abuse screen: Denies threats or abuse. Denies injuries from another. Nutritional screening: No deficits noted. Tuberculosis screening: No symptoms or risk factors identified. Assessment: 18:56 General: Appears in no apparent distress. Behavior is calm, cooperative. Pain: Pain. hb Neuro: Level of Consciousness is awake, alert, obeys commands, Oriented to person, place, time, situation. Cardiovascular: Patient's skin is warm and dry. Respiratory: Respiratory effort is even, unlabored, Respiratory pattern is regular, symmetrical. GI: Reports lower abdominal pain, upper abdominal pain. : No signs and/or symptoms were reported regarding the genitourinary system. EENT: No signs and/or symptoms were reported regarding the EENT system. Derm: Skin is pink, warm \\T\\ dry. Musculoskeletal: No signs and/or symptoms reported regarding the musculoskeletal system. 19:34 General: Appears in no apparent distress. comfortable, Behavior is calm, cooperative, aa9 appropriate for age. General: reports "lower back nerve pain" upon standing described it as,"It feels like my legs are going to give out but it comes and goes, like a pinched nerve in my lower back area.". Pain: Complains of pain in right upper quadrant and right lower quadrant Quality of pain is described as aching, Also complains of nausea. Respiratory: Airway is patent Respiratory effort is even, unlabored. GI: Reports diarrhea, Patient currently denies vomiting. : No signs and/or symptoms were reported regarding the genitourinary system. EENT: No signs and/or symptoms were reported regarding the EENT system. Vital Signs: 18:09 BP 123 / 74; Pulse 70; Resp 20; Temp 98; Pulse Ox 100% ; Weight 88.45 kg; Height 5 ft. kb3 2 in. (157.48 cm); Pain 8/10; 19:21 BP 111 / 71 LA Supine (auto/); Pulse 92; aa9 19:26 BP 106 / 56 LA Sitting; Pulse 83; aa9 19:32 BP 128 / 71 LA Standing; Pulse 70; aa9 18:09 Body Mass Index 35.67 (88.45 kg, 157.48 cm) kb3 ED Course: 17:35 Patient arrived in ED. as 18:11 Sarah Villa FNP-C is PHCP. snw 18:11 Ankit Stone DO is Attending Physician. snw 18:14 Triage completed. kb3 18:14 Arm band placed on right wrist. kb3 18:56 Patient has correct armband on for positive identification. hb 18:56 CBC with Diff Sent. em1 18:56 TS Sent. em1 18:56 CMP Sent. em1 18:56 Initial lab(s) drawn, by me, sent to lab. T\\T\\S collected, blood band applied to patient. em1 Inserted saline lock: 20 gauge in right antecubital area, using aseptic technique. Blood collected. 19:53 Lucille Londono, RN is Primary Nurse. kd3 Administered Medications: No medications were administered Medication: 18:56 VIS not applicable for this client. hb Outcome: 19:27 Discharge ordered by . snw 20:12 Patient left the ED. aa9 Signatures: Sarah Villa FNP-C WATER RESOURCE AGENT-Csnw Wendie Villa Eric em1 Suyapa Smalls, RN RN hb Lucille Londono, RN RN kd3 Imelda Gutierrez, KLEBER SHAHID aa9 Becky Pritchard, RN RN kb3 Corrections: (The following items were deleted from the chart) 18:15 18:14 Home Meds: Iron CR Oral; kb3 kb3
--- NOTE | 2022-06-04 19:27 | EDPHYS ---
Physician Documentation [facility] Name: Trinity Ramos Age: 41 yrs Sex: Female : 1980 Arrival Date: 06/04/2022 Time: 17:35 Bed 5 Private MD: ED Physician Ankit Stone HPI: 06/04 19:34 This 41 yrs old Female presents to ER via Ambulatory with complaints of Breast snw Pain, Flank Pain, Rib Pain. 19:34 The patient presents with vaginal bleeding that is heavy. Onset: The symptoms/episode snw began/occurred 4 year(s) ago, and became persistent. Associated signs and symptoms: Pertinent positives: dysmenorrhea. The patient has experienced similar episodes in the past, chronically. The patient has not recently seen a physician. 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 - Social history:: Smoking status: Patient reports the use of cigarette tobacco products, smokes one-half pack cigarettes per day. ROS: 19:31 Eyes: Negative for injury, pain, redness, and discharge, ENT: Negative for injury, snw pain, and discharge, Neck: Negative for injury, pain, and swelling. 19:31 Back: Negative for injury and pain, MS/Extremity: Negative for injury and deformity, Skin: Negative for injury, rash, and discoloration, Neuro: Negative for headache, weakness, numbness, tingling, and seizure, Psych: Negative for depression, anxiety, suicide ideation, homicidal ideation, and hallucinations. 19:31 Constitutional: Positive for fatigue, malaise. 19:31 Cardiovascular: Positive for BARILLAS. 19:31 Respiratory: Positive for shortness of breath, on exertion. 19:31 Abdomen/GI: Positive for abdominal cramps. 19:31 : Positive for vaginal bleeding. Exam: 19:29 Constitutional: This is a well developed, well nourished patient who is awake, alert, snw and in no acute distress. Head/Face: Normocephalic, atraumatic. Eyes: Pupils equal round and reactive to light, extra-ocular motions intact. Lids and lashes normal. Conjunctiva and sclera are non-icteric but pale. Cornea within normal limits. Periorbital areas with no swelling, redness, or edema. ENT: Nares patent. No nasal discharge, no septal abnormalities noted. Tympanic membranes are normal and external auditory canals are clear. Oropharynx with no redness, swelling, or masses, exudates, or evidence of obstruction, uvula midline. Mucous membranes moist. Neck: Trachea midline, no thyromegaly or masses palpated, and no cervical lymphadenopathy. Supple, full range of motion without nuchal rigidity, or vertebral point tenderness. No Meningismus. Chest/axilla: Normal chest wall appearance and motion. Nontender with no deformity. No lesions are appreciated. Cardiovascular: Regular rate and rhythm with a normal S1 and S2. No gallops, murmurs, or rubs. Normal PMI, no JVD. No pulse deficits. Respiratory: Lungs have equal breath sounds bilaterally, clear to auscultation and percussion. No rales, rhonchi or wheezes noted. No increased work of breathing, no retractions or nasal flaring. Abdomen/GI: Soft, non-tender, with normal bowel sounds. No distension or tympany. No guarding or rebound. No evidence of tenderness throughout. Back: No spinal tenderness. No costovertebral tenderness. Full range of motion. MS/ Extremity: Pulses equal, no cyanosis. Neurovascular intact. Full, normal range of motion. Neuro: Awake and alert, GCS 15, oriented to person, place, time, and situation. Cranial nerves II-XII grossly intact. Motor strength 5/5 in all extremities. Sensory grossly intact. Cerebellar exam normal. Normal gait. Psych: Awake, alert, with orientation to person, place and time. Behavior, mood, and affect are within normal limits. 19:29 Skin: Appearance: Color: pale. Vital Signs: 18:09 BP 123 / 74; Pulse 70; Resp 20; Temp 98; Pulse Ox 100% ; Weight 88.45 kg; Height 5 ft. kb3 2 in. (157.48 cm); Pain 8/10; 19:21 BP 111 / 71 LA Supine (auto/); Pulse 92; aa9 19:26 BP 106 / 56 LA Sitting; Pulse 83; aa9 19:32 BP 128 / 71 LA Standing; Pulse 70; aa9 18:09 Body Mass Index 35.67 (88.45 kg, 157.48 cm) kb3 MDM: 18:33 Patient medically screened. snw 19:19 Data reviewed: vital signs, nurses notes, old medical records, Pt with H/H values on snw 08/16/21 5.5/19: 12/21/21 5.5/19.1: today 5.11/16. Data interpreted: Pulse oximetry: on room air is 100 %. Interpretation: hypoxia. Counseling: I had a detailed discussion with the patient and/or guardian regarding: the historical points, exam findings, and any diagnostic results supporting the discharge/admit diagnosis, lab results, the need for outpatient follow up, for definitive care, an OB/Gyne specialist. Response to treatment: There is no appreciated change of the patient's symptoms at this time. Special discussion: Based on the patient's Hx, exam, and Dx evaluation, there is no indication for emergent surgery or inpatient Tx. It is understood by the patient/guardian that if the Sx's persist or worsen they need to return immediately for re-evaluation. Based on the history and exam findings, there is no indication for further emergent testing or inpatient evaluation. I discussed with the patient/guardian the need to see the OB Gyne specialist for further evaluation of the symptoms. pt is chronically iron deficient anemic. 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 Encouraged pt to begin PNV with source of Vitamin C and go to gynecologist. 19:29 Differential diagnosis: anemia, menorrhagia, cholecystitis, appendicitis. [facility] 06/04 18:21 Order name: TS snw 06/04 18:21 Order name: CBC with Diff; Complete Time: 19:09 snw 06/04 18:21 Order name: Orthostatics; Complete Time: 19:32 snw 06/04 18:21 Order name: CMP; Complete Time: 19:27 snw 06/04 18:21 Order name: SL; Complete Time: 18:56 snw 06/04 19:09 Order name: CBC Smear Scan; Complete Time: 19:09 EDMS Administered Medications: No medications were administered Disposition: 19:29 Co-signature as Attending Physician, Ankit Stone DO I was immediately available on-site ms3 in the Emergency Department for consultation in the care of the patient. Disposition Summary: 06/04/22 19:27 Discharge Ordered Location: Home snw Condition: Stable snw Diagnosis - Iron deficiency anemia secondary to blood loss (chronic) snw - Dysmenorrhea, unspecified snw Followup: snw - With: Private Physician - When: 2 - 3 days - Reason: Recheck today's complaints, Continuance of care, Re-evaluation by your physician Discharge Instructions: - Discharge Summary Sheet snw - Iron Deficiency Anemia, Adult snw - Anemia snw - Iron-Rich Diet snw - Dysmenorrhea snw Forms: - Medication Reconciliation Form snw - Thank You Letter snw - Antibiotic Education snw - Prescription Opioid Use snw Prescriptions: - Mobic 7.5 mg Oral Tablet - take 1 tablet by ORAL route once daily take with food; 20 tablet; Refills: 0, snw Product Selection Permitted Signatures: Dispatcher [employer] EDMS Sarah Villa, CREMATORY ATTENDANT-C CREMATORY ATTENDANT-Csnw Ankit Stone DO DO ms3 Becky Pritchard, RN RN kb3 Corrections: (The following items were deleted from the chart) 18:15 18:14 Home Meds: Iron CR Oral; kb3 kb3
[2022-06-04 20:24] VITALS: TEMP 98; O2SAT 100
[2022-06-04 20:27] VITALS: BP 128/71
== END 2022-06-04 20:12 | disposition home or self-care (01) ==
LOC: ER 17:30
DX: D50.0 Iron deficiency anemia secondary to blood loss (chronic) (principal); F17.210 Nicotine dependence, cigarettes, uncomplicated; Z88.5 Allergy status to narcotic agent
CPT/HCPCS: 36415; 80053; 85025; 86850; 86900; 86901; 99283

== ENCOUNTER 2022-11-29 18:52 | Emergency (ER) | payer SELFPAY ==
--- OUTSIDE RECORDS SUMMARY | 2022-11-29 18:57 | XMS REPORT | Continuity of Care Document ---
:1980 Author Organization [facility] t Address [address] [facility] [address] [place] [address] Care Team Providers Name Role Phone JUSTICE AGUERO Primary Care Physician Unavailable JUSTICE AGUERO Attending Clinician Unavailable Justice Fierro Attending Clinician Doctor Unassigned, [place] Attending Clinician Unavailable Lab, Adc Fam Pob I Attending Clinician Unavailable Liza Bowers Attending Clinician LIZA BELL Attending Clinician Unavailable DONNIE ROOT Attending Clinician Unavailable Donnie Root PA-C Attending Clinician Payers Payer Name Policy Type Policy Number Effective Date Expiration Date Quinn hernandez [id number] 2021 00:00:00 Problems Condition Condition Condition Status Onset Resolution Last Treating Co mments Source Name Details Category Date Date Treatment Clinician Date Menorrhagi Menorrhagi Disease Active U nivers a with a with -07 ity of regular regular 00:00: [place] cycle cycle 00 Medical Branch Encounter Encounter Disease Active Uni vers for for -07 ity of surveill[place] ce of 00 Medical other other Branch contracept contracept sorin sorin Class 2 Class 2 Disease Active Univers obesity obesity -07 ity of due to due to 00:00: [...] 4-07 it y of adult adult 00:00: [place] 00 Medical Branch Fibroids Fibroids Disease Active Unive rs 9-12 ity of 00:00: [place] Medical Branch Irregular Irregular Disease Active Uni vers menstrual menstrual 5-31 ity of bleeding bleeding 00:00: [place] [address] [facility] [place] Obesity Obesity Disease Active Univers (BMI (BMI 1-30 ity of 30.0-34.9) 30.0-34.9[place] Well woman Well woman Disease Active U nivers exam exam 1-30 ity of 00:00: [place] [address] Medical [place] History of History of Disease Active U nivers bilateral bilateral 1-30 ity of tubal tubal 00:00: [place] ligation ligation 00 Medica l Branch Former Former Disease Active Univers tobacco tobacco 1-30 ity of use use 00:00: [address] Allergies, Adverse Reactions, Alerts Allergy Allergy Status Severity Reaction(s) Onset Inactive Treating Comm ents Source Name Type Date Date Clinician NO KNOWN Drug Active Univers ALLERGIE Class ity of S [facility] [place] Social History Social Habit Start Date Stop Date Quantity Comments Source Exposure to Not sure [facility] SARS-CoV-2 [place] Medical (event) Branch History [facility] University o f Alcohol Frequency [facility] [place] edical Branch History [facility] University o f Alcohol Std [place] Medical Drinks Branch History [facility] University o f Alcohol Binge [place] Medic al Branch Alcohol intake 2021-09-03 2021-09-03 Current drinker of Un iversity of 00:00:00 00:00:00 [facility] Cigarettes smoked 2016-06-28 2016-06-28 Univers ity of current (pack per 00:00:00 00:00:00 [facility] [place] [facility] ) - Reported Branch Cigarette 2016-06-28 2016-06-28 University of pack-years 00:00:00 00:00:00 [facility] [place] Alcohol Comment 2016-06-28 2016-06-28 Occassionally Univer sity of 00:00:00 00:00:00 [facility] [place] Tobacco use and 2016-06-28 2016-06-28 Never used Universit y of exposure 00:00:00 00:00:00 [facility] [place] History of 2015-06-18 Cigarette Smoker [facility] of tobacco use 00:00:00 [facility] [place] Sex Assigned At [birth year] Universit y of 00:00:00 00:00:00 [facility] [place] Smoking Status Start Date Stop Date Source Former smoker 2016-06-28 00:00:00 2016-06-28 00:00:00 Universi ty of [facility] [place] Medications Ordered Filled Start Stop Current Ordering Indication Dosage Frequency Signature Comments Components Source Medication Medication Date Date Medication? Clinician (SIG) Name Name ferrous Yes [id number] 325mg Take 1 Un timi sulfate 325 4-08 tablet by ity of mg (65 mg 00:00: mouth 2 [place] iron) 00 (two) Medical tablet times Branch daily. ascorbic Yes [id number] 500mg Take 1 U nivers acid, 4-08 tablet by ity of vitamin C, 00:00[place] 500 mg 00 (three) Medical tablet times Branch daily. IRON, Yes Take by Univers FERROUS 4-07 mouth. ity of SULFATE, 15:32: [place] ORAL 13 [facility] Immunizations Ordered Filled Immunization Date Status Comments Sour e Immunization Name Name TDAP (ADACEL) 2007-12-29 Completed [place] of VACCINE 00:00:00 [facility] [place] Procedures This patient has no known procedures. 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 FULL PROFESSOR [id number] ity of [facility] [id number] [place] as MATERNAL [phone] Med ical & CHILD [address] [place] [address] 2021-09-03 2021-09-03 Outpatient Arabella AGUERO [facility] [id number] Univers 15:30:00 16:05:53 JUSTICE mahan o f [facility] [place] 2021-09-03 2021-09-03 Outpatient R MORE [facility] [id number] Univers 15:30:00 16:05:53 JUSTICE mahan o f [facility] [place] 2021-09-03 2021-09-03 Office More [facility] [id number] Univers 15:30:00 16:05:53 Visit Justice R ASSISTANT ASSOCIATE FULL PROFESSOR [id number] ity of [facility] [id number] Dew[place] as MATERNAL [phone] Med ical & CHILD [address] [place] [address] 2021-09-03 2021-09-03 Orders Doctor DONNIE [id number] Univers 00:00:00 00:00:00 Only Unassigned, LINDSAY [id number] ity of [place] [facility] [id number] [place] as [phone] [address] 2020-07-28 2020-07-28 Laboratory Lab, [facility] Fam Pob I [facility] [id number] Univers 12:55:09 13:15:09 Only Milagros Liza Health [id number] ity of [place] [id number] Edwar as Professio [phone] Hi dical [address] Office Building One 2020-07-28 2020-07-28 Laboratory Lab, [facility] [id number] 12:55:09 13:15:09 Only Fam Pob I Health [id number] [place] [id number] Professio [phone] nal [address] [place] [address] Building [facility] 2020-07-28 2020-07-28 Outpatient R MILAGROS [facility] [id number] Univers 13:00:00 13:00:00 LIZA ity [facility] 2020-04-26 2020-04-26 Outpatient R MECCA [facility] [id number] Univers 11:00:00 11:00:00 DONNIE mahan [facility] 2020-04-26 2020-04-26 Laboratory Lab, [facility] Fam Pob I [facility] [id number] [facility] 10:37:02 10:57:02 Only Donnie Root Health [id number] ity of [place] [id number] Ed[place] as Professio [phone] Hi dical [address] Office Building [facility] 2020-04-26 2020-04-26 Laboratory Lab, [facility] [id number] 10:37:02 10:57:02 Only Ruslan Pob I Health [id number] [place] [id number] Professio [phone] [place] [address] Office [facility] 2020-04-26 2020-04-26 Letter Doctor DONNIE [id number] Univers 00:00:00 00:00:00 (Out) Unassigned, LINDSAY [id number] ity of [place] [facility] [id number] [place] as [phone] [address] 2020-04-26 2020-04-26 Letter Doctor DONNIE [id number] 00:00:00 00:00:00 (Out) Unassigned, LINDSAY [id number] [place] [facility] [id number] [phone] [facility] Results This patient has no known results.
[2022-11-29 19:10] LABS: Absolute Lymphocytes (CBC) 4.7 K/uL (0.7-4.9); Hematocrit 21.6 % (36.0-45.0); Lymphocytes % 39.2 % (15.3-44.8); MCV 54.8 fL (80-100); MPV 8.6 fL (7.6-11.3); RBC Red Blood Cell Count 3.94 M/uL (3.86-4.86)
[2022-11-29] MEDS ORDERED: NA CHLORIDE 0.9% 1,000 ML ONE (19:15)
[2022-11-29] MEDS ORDERED: ONDANSETRON 4 MG/2 ML VIAL ONE (19:15)
[2022-11-29] MEDS ORDERED: MORPHINE 4 MG/ML SYR ONE (19:15)
[2022-11-29] MEDS ORDERED: FENTANYL CITR 100 MCG/2 ML ONE (19:21)
[2022-11-29 19:24] LABS: Albumin 3.9 g/dL (3.4-5.0); Bilirubin Total 0.4 mg/dL (0.2-1.0); Potassium 3.2 mEq/L (3.5-5.1); Protein, Total 8.3 g/dL (6.4-8.2)
[2022-11-29] MEDS ORDERED: FAMOTIDINE 20 MG/2 ML VIAL IV ONE (19:28)
--- NOTE | 2022-11-29 19:57 | RAD REPORT ---
EXAM DESCRIPTION: US - Abdomen Exam Limited - 11/29/2022 7:46 pm CLINICAL HISTORY: ABD PAIN COMPARISON: Abdomen Exam Limited dated 03/07/2021 FINDINGS: The gallbladder demonstrates a large shadowing gallstone in the gallbladder. No pericholec ystic fluid or gallbladder wall thickening. The common bile duct is normal measuring 4-5 mm. The liver demonstrates no findings of intrahepatic biliary dilatation. IMPRESSION: Large shadowing gallstone in the gallbladder.
--- NOTE | 2022-11-29 20:55 | RAD REPORT ---
EXAM DESCRIPTION: CTAbdomen Pelvis W Contrast - 11/29/2022 8:46 pm CLINICAL HISTORY: Abdominal pain. ABD PAIN COMPARISON: <Comparisons> TECHNIQUE: Biphasic CT imaging of the abdomen and pelvis was performed with 100 ml non-ionic IV cont rast. All CT scans are performed using dose optimization technique as appropriate and may include automated exposure control or mA/KV adjustment according to patient size. FINDINGS: The lung bases are clear.Large gallstone in the gallbladder. The liver, spleen, pancreas, adrenal glands and kidneys are within normal limits. No bowel obstruction, free air, free fluid or abscess. The appendix is normal. No evidence of signi ficant lymphadenopathy. 4 cm right ovarian cyst. Fluid is present in the endometrium. No suspicious bony findings. IMPRESSION: Cholelithiasis.
--- NOTE | 2022-11-29 21:31 | ER ---
Nurse's Notes [facility] Dat Name: Trinity Ramos Age: 42 yrs Sex: Female : 1980 Arrival Date: 11/29/2022 Time: 18:52 Bed 5 Private MD: Diagnosis: Abnormal uterine and vaginal bleeding, unspecified;Anemia, unspecified;Other cholelithiasis without obstruction Presentation: 11/29 18:57 Chief complaint: Patient states: "20 minutes ago, I started having severe abdominal mb9 pain that started under my right breast/chest and radiates to my stomach". Coronavirus screen: Vaccine status: Patient reports receiving the 2nd dose of the covid vaccine. Ebola Screen: No symptoms or risks identified at this time. Initial Sepsis Screen: Does the patient meet any 2 criteria? No. Patient's initial sepsis screen is negative. Does the patient have a suspected source of infection? No. Patient's initial sepsis screen is negative. Risk Assessment: Do you want to hurt yourself or someone else? Patient reports no desire to harm self or others. Onset of symptoms was November 29, 2022. 18:57 Method Of Arrival: Wheelchair mb9 18:57 Acuity: KRISTI 3 mb9 Triage Assessment: 18:59 General: Appears uncomfortable, Behavior is anxious, crying. Pain: Complains of pain in mb9 chest Pain radiates to back and abdomen. Neuro: Level of Consciousness is awake, alert, obeys commands, Oriented to person, place, time, situation, Appropriate for age. Respiratory: Airway is patent. GI:. Historical: - Allergies: 18:59 Darvocet-N 100; mb9 - Home Meds: 18:59 None [Active]; mb9 - PMHx: 18:59 None; mb9 - PSHx: 18:59 bladder SX; section; tubal ligation; mb9 - Immunization history:: Adult Immunizations up to date. - Social history:: Smoking status: Patient denies any tobacco usage or history of. Screenin/04 04:[address] [facility] ED Fall Risk Assessment (Adult) History of falling in the last 3 months, jb4 including since admission No falls in past 3 months (0 pts) Confusion or Disorientation No (0 pts) Score/Fall Risk Level 0 - 2 = Low Risk Oriented to surroundings. Abuse screen: Denies threats or abuse. Nutritional screening: No deficits noted. Tuberculosis screening: No symptoms or risk factors identified. Assessment: 11/29 18:58 General: Appears distressed, uncomfortable, Behavior is cooperative, appropriate for kc6 age, crying. Pain: Complains of pain in right upper quadrant Pain currently is 10 out of 10 on a pain scale. Pain began suddenly, Is continuous. Neuro: Level of Consciousness is awake, alert, obeys commands, Oriented to person, place, time, situation, Appropriate for age. Cardiovascular: Capillary refill < 3 seconds. Respiratory: Airway is patent Trachea midline Respiratory effort is even, unlabored, Respiratory pattern is regular, symmetrical. GI: Abdomen is flat, non-distended, Patient currently denies diarrhea, nausea, vomiting. : No signs and/or symptoms were reported regarding the genitourinary system. EENT: No signs and/or symptoms were reported regarding the EENT system. Derm: No signs and/or symptoms reported regarding the dermatologic system. Skin is intact, is healthy with good turgor, Skin is clammy, diaphoretic, Skin is normal, Skin temperature is warm. Musculoskeletal: No signs and/or symptoms reported regarding the musculoskeletal system. Circulation, motion, and sensation intact. Capillary refill < 3 seconds, Range of motion: intact in all extremities. 19:40 Reassessment: Patient appears in no apparent distress at this time. Patient and/or jb4 family updated on plan of care and expected duration. Pain level reassessed. Patient is alert, oriented x 3, equal unlabored respirations, skin warm/dry/pink. 21:00 Reassessment: Patient appears in no apparent distress at this time. Patient and/or jb4 family updated on plan of care and expected duration. Pain level reassessed. Patient is alert, oriented x 3, equal unlabored respirations, skin warm/dry/pink. Patient states feeling better. 22:00 Reassessment: Patient appears in no apparent distress at this time. Patient and/or jb4 family updated on plan of care and expected duration. Pain level reassessed. Patient is alert, oriented x 3, equal unlabored respirations, skin warm/dry/pink. 23:32 General: discharge pending blood transfusion . as6 11/30 00:30 Reassessment: Patient appears in no apparent distress at this time. Patient and/or jb4 family updated on plan of care and expected duration. Pain level reassessed. Patient is alert, oriented x 3, equal unlabored respirations, skin warm/dry/pink. 01:30 Reassessment: Patient appears in no apparent distress at this time. Patient and/or jb4 family updated on plan of care and expected duration. Pain level reassessed. Patient is alert, oriented x 3, equal unlabored respirations, skin warm/dry/pink. 02:30 Reassessment: Pt resting in bed with eyes closed, respirations are even and unlabored jb4 with no s/s of pain or distress noted. 03:30 Reassessment: Patient appears in no apparent distress at this time. No changes from jb4 previously documented assessment. Patient and/or family updated on plan of care and expected duration. Pain level reassessed. 04:28 Reassessment: Patient appears in no apparent distress at this time. Patient and/or jb4 family updated on plan of care and expected duration. Pain level reassessed. Patient is alert, oriented x 3, equal unlabored respirations, skin warm/dry/pink. Patient states feeling better. Vital Signs: 11/29 18:57 BP 141 / 115; Pulse 76; Resp 22; Temp 98.2; Pulse Ox 100% on R/A; Weight 81.65 kg; mb9 Height 5 ft. 2 in. ; Pain 10/10; 19:17 BP 99 / 75; Pulse 85; Resp 22 S; Pulse Ox 100% on R/A; as6 19:49 BP 110 / 59; Pulse 73; Resp 21; Pulse Ox 100% on R/A; jb4 21:55 BP 107 / 59; Pulse 65; Resp 17 S; Pulse Ox 99% on R/A; as6 23:00 BP 116 / 63; Pulse 68; Resp 16; Pulse Ox 100% on R/A; jb4 07 00:00 BP 101 / 58; Pulse 57; Resp 19; Pulse Ox 100% on R/A; jb4 01:00 BP 105 / 58; Pulse 53; Resp 18; Pulse Ox 100% on R/A; jb4 02:00 BP 106 / 57; Pulse 61; Resp 16; Temp 98; Pulse Ox 98% on R/A; jb4 03:24 BP 128 / 73; Pulse 61; Resp 18 S; Pulse Ox 100% on R/A; as6 11/29 18:57 Body Mass Index 32.92 (81.65 kg, 157.48 cm) mb9 11/29 18:57 Pain Scale: Adult mb9 ED Course: 11/29 18:53 Patient arrived in ED. mr 18:57 Arm band placed on. mb9 18:58 Inserted saline lock: 18 gauge in right antecubital area, using aseptic technique. kc6 Blood collected. 18:59 Triage completed. mb9 19:00 Karri Pat MD is Attending Physician. kdr 19:01 James Mathur, KLEBER is Primary Nurse. as6 19:20 Notified ED physician of a critical lab result(s). Hgb 5.8. kl 19:34 Missed attempt(s): 20 gauge in right wrist. Bleeding controlled, band aid applied, jb4 catheter tip intact. 19:48 US Abdomen Limited In Process Unspecified. EDMS 20:47 CT Abd/Pelvis - IV Contrast Only In Process Unspecified. EDMS 21:17 Attending Physician role handed off by Karri Pat MD dominique 21:17 Juanito Moran MD is Attending Physician. dominique 22:17 Michelle Joaquin MD is Referral Physician. [facility] 11/30 04:28 Patient has correct armband on for positive identification. Bed in low position. Call jb4 light in reach. Side rails up X 1. 04:28 No provider procedures requiring assistance completed. IV discontinued, intact, jb4 bleeding controlled, No redness/swelling at site. Pressure dressing applied. Administered Medications: 11/29 19:17 Drug: NS 0.9% IV 1000 ml Route: IV; Rate: 1 bolus; Site: right antecubital; jb4 19:17 Not Given (Other Intervention Used): morphine IVP or IV 4 mg IVP once over 4 mins jb4 19:17 Drug: Ondansetron IVP 4 mg Route: IVP; Site: right antecubital; jb4 19:17 Drug: fentaNYL (PF) IVP 50 mcg Route: IVP; Site: right antecubital; jb4 19:22 Drug: Famotidine IVP 20 mg Route: IVP; Site: right antecubital; jb4 22:30 Drug: Piperacillin-Tazobactam IVPB 3.375 grams Route: IVPB; Infused Over: 60 mins; jb4 Site: right antecubital; Medication: 22:33 VIS not applicable for this client. jb4 Outcome: 21:30 ER care complete, transfer ordered by . dominique 22:25 Discharge ordered by . dominique 11/30 04:28 Discharged to home ambulatory. jb4 Condition: stable Discharge instructions given to patient, Instructed on discharge instructions, follow up and referral plans. medication usage, Demonstrated understanding of instructions, follow-up care, medications, Prescriptions given X 2. 04:30 Patient left the ED. jb4 Signatures: Dispatcher [employer] EDMS Carlita Cat, RN Juanito Rangel MD MD cha Rittger, Kevin, MD MD kdr Rivera, Mary mr Bryson, James, RN RN jb4 James Mathur RN RN as6 Mariella Segovia RN RN kc6 Steve, Windy Bo, RN RN mb9 Corrections: (The following items were deleted from the chart) 11/29 18:59 18:57 BP 141 / 115; Pulse 76bpm; Resp 76bpm; Pulse Ox 100% RA; Temp 98.2F; 81.65 kg; mb9 Height 5 ft. 2 in.; BMI: 32.9; Pain 10/10, Adult; mb9 18:59 18:59 Home Meds: Iron CR Oral; mb9 mb9
--- NOTE | 2022-11-29 21:31 | EDPHYS ---
Physician Documentation [facility] Dat Name: Trinity Ramos Age: 42 yrs Sex: Female : 1980 Arrival Date: 11/29/2022 Time: 18:52 Bed 5 Private MD: ED Physician Juanito Moran HPI: 11/29 20:49 This 42 yrs old Female presents to ER via Wheelchair with complaints of kdr Abdominal Pain. 20:49 Patient presents to the ED with cute onset of right upper quadrant pain. This started kdr just before arrival here.. 20:49 She has had similar pain before but not this intense.. Onset: The symptoms/episode kdr began/occurred suddenly, just prior to arrival. Severity of symptoms: At their worst the symptoms were severe incapacitating in the emergency department the symptoms are unchanged. The patient has experienced similar episodes in the past, a few times. The patient has not recently seen a physician. Patient's been seen here previously for various issues but has been found to be chronically anemic secondary to abnormal uterine bleeding which may last months. Patient has been transfused previously but then resolves back to around 5.5-5.8 hemoglobin. Patient today vomited once but otherwise has just been nauseated.. Historical: - Allergies: 18:59 Darvocet-N 100; mb9 - Home Meds: 18:59 None [Active]; mb9 - PMHx: 18:59 None; mb9 - PSHx: 18:59 bladder SX; section; tubal ligation; mb9 - Immunization history:: Adult Immunizations up to date. - Social history:: Smoking status: Patient denies any tobacco usage or history of. ROS: 20:49 Constitutional: Negative for fever, chills, and weight loss, Eyes: Negative for injury, kdr pain, redness, and discharge, ENT: Negative for injury, pain, and discharge, Neck: Negative for injury, pain, and swelling, Cardiovascular: Negative for chest pain, palpitations, and edema, Respiratory: Negative for shortness of breath, cough, wheezing, and pleuritic chest pain, Back: Negative for injury and pain, : Negative for injury, bleeding, discharge, and swelling, MS/Extremity: Negative for injury and deformity, Skin: Negative for injury, rash, and discoloration, Neuro: Negative for headache, weakness, numbness, tingling, and seizure activity. Psych: Negative for depression, anxiety, suicide ideation, homicidal ideation, and hallucinations, Allergy/Immunology: Negative for hives, rash, and allergies, Endocrine: Negative for neck swelling, polydipsia, polyuria, polyphagia, and marked weight changes, Hematologic/Lymphatic: Negative for swollen nodes, abnormal bleeding, and unusual bruising. 20:49 Abdomen/GI: Positive for abdominal pain, nausea and vomiting, Negative for diarrhea, constipation, abdominal cramps, abdominal distension, black/tarry stool, rectal pain, rectal bleeding. Exam: 20:49 Constitutional: This is a well developed, well nourished patient who is awake, alert, kdr and in significant acute distress. Head/Face: Normocephalic, atraumatic. Eyes: Pupils equal round and reactive to light, extra-ocular motions intact. Lids and lashes normal. Conjunctiva and sclera are non-icteric and not injected. Cornea within normal limits. Periorbital areas with no swelling, redness, or edema. Neck: Trachea midline, no thyromegaly or masses palpated, and no cervical lymphadenopathy. Supple, full range of motion without nuchal rigidity, or vertebral point tenderness. No Meningismus. Chest/axilla: Normal chest wall appearance and motion. Nontender with no deformity. No lesions are appreciated. Cardiovascular: Regular rate and rhythm with a normal S1 and S2. No gallops, murmurs, or rubs. Normal PMI, no JVD. No pulse deficits. Respiratory: Lungs have equal breath sounds bilaterally, clear to auscultation and percussion. No rales, rhonchi or wheezes noted. No increased work of breathing, no retractions or nasal flaring. Back: No spinal tenderness. No costovertebral tenderness. Full range of motion. Skin: Warm, dry with normal turgor. Normal color with no rashes, no lesions, and no evidence of cellulitis. MS/ Extremity: Pulses equal, no cyanosis. Neurovascular intact. Full, normal range of motion. Neuro: Awake and alert, GCS 15, oriented to person, place, time, and situation. Cranial nerves II-XII grossly intact. Motor strength 5/5 in all extremities. Sensory grossly intact. Cerebellar exam normal. Normal gait. Psych: Awake, alert, with orientation to person, place and time. Behavior, mood, and affect are within normal limits. Vital Signs: 18:57 BP 141 / 115; Pulse 76; Resp 22; Temp 98.2; Pulse Ox 100% on R/A; Weight 81.65 kg; mb9 Height 5 ft. 2 in. ; Pain 10/10; 19:17 BP 99 / 75; Pulse 85; Resp 22 S; Pulse Ox 100% on R/A; as6 19:49 BP 110 / 59; Pulse 73; Resp 21; Pulse Ox 100% on R/A; jb4 21:55 BP 107 / 59; Pulse 65; Resp 17 S; Pulse Ox 99% on R/A; as6 23:00 BP 116 / 63; Pulse 68; Resp 16; Pulse Ox 100% on R/A; jb4 11/30 00:00 BP 101 / 58; Pulse 57; Resp 19; Pulse Ox 100% on R/A; jb4 01:00 BP 105 / 58; Pulse 53; Resp 18; Pulse Ox 100% on R/A; jb4 02:00 BP 106 / 57; Pulse 61; Resp 16; Temp 98; Pulse Ox 98% on R/A; jb4 03:24 BP 128 / 73; Pulse 61; Resp 18 S; Pulse Ox 100% on R/A; 6 11/29 18:57 Body Mass Index 32.92 (81.65 kg, 157.48 cm) [facility] 11/29 18:57 Pain Scale: Adult 9 MDM: 11/29 20:49 Data reviewed: vital signs, nurses notes, lab test result(s), radiologic studies. kdr 21:18 Patient medically screened. [facility] 11/29 18:58 Order name: CBC with Diff; Complete Time: 22:05 [facility] 11/29 18:58 Order name: CMP; Complete Time: 19:50 [facility] 11/29 18:58 Order name: Lipase; Complete Time: 19:50 [facility] 11/29 19:24 Order name: Test, Serum; Complete Time: 20:46 [facility] 11/29 19:25 Order name: Type And Screen [facility] 11/29 21:57 Order name: CBC Smear Scan; Complete Time: 22:05 [facility] 11/29 23:41 Order name: Packed RBCs (Additional Unit) [facility] 11/29 19:07 Order name: CT Abd/Pelvis - IV Contrast Only; Complete Time: 21:17 kdr 11/29 19:07 Order name: US Abdomen Limited; Complete Time: 20:46 kdr 11/29 18:58 Order name: IV Saline Lock; Complete Time: 19:17 kc6 11/29 18:58 Order name: Labs collected and sent; Complete Time: 19:17 kc6 11/29 22:34 Order name: Transfuse; Complete Time: 03:49 jb4 Administered Medications: 19:17 Drug: NS 0.9% IV 1000 ml Route: IV; Rate: 1 bolus; Site: right antecubital; jb4 19:17 Not Given (Other Intervention Used): morphine IVP or IV 4 mg IVP once over 4 mins jb4 19:17 Drug: Ondansetron IVP 4 mg Route: IVP; Site: right antecubital; jb4 19:17 Drug: fentaNYL (PF) IVP 50 mcg Route: IVP; Site: right antecubital; jb4 19:22 Drug: Famotidine IVP 20 mg Route: IVP; Site: right antecubital; jb4 22:30 Drug: Piperacillin-Tazobactam IVPB 3.375 grams Route: IVPB; Infused Over: 60 mins; jb4 Site: right antecubital; Disposition Summary: 11/29/22 22:25 Discharge Ordered Location: Home dominique Problem: new(11/29/22 22:25) dominique Symptoms: have improved(11/29/22 22:25) dominique Condition: Stable(11/29/22 22:25) dominique Diagnosis - Abnormal uterine and vaginal bleeding, unspecified dominique - Anemia, unspecified(11/29/22 22:25) dominique - Other cholelithiasis without obstruction(11/29/22 22:25) dominique Followup: dominique - With: Private Physician - When: 2 - 3 days - Reason: Recheck today's complaints, Continuance of care, Re-evaluation by your physician Followup: dominique - With: Michelle Joaquin MD - When: 2 - 3 days - Reason: Recheck today's complaints, Re-evaluation by your physician Discharge Instructions: - Discharge Summary Sheet dominique - Abnormal Uterine Bleeding dominique - Anemia dominique - Blood Transfusion, Adult dominique - Dysfunctional Uterine Bleeding dominique - Cholelithiasis dominique - Cholelithiasis, Lmvz-jc-Yvkx dominique - Blood Transfusion, Adult, Qbrv-un-Khca dominique - Abnormal Uterine Bleeding, Jxqv-iy-Wfrl dominique - Blood Transfusion, Adult, Care After [facility] Forms: - Medication Reconciliation Form [facility] - Thank You Letter [facility] - Antibiotic Education [facility] - Prescription Opioid Use [facility] - [email or web address] [facility] Prescriptions: - Zofran 4 mg Oral Tablet - take 1 tablet by ORAL route every 12 hours As needed; 20 tablet; Refills: 0, dominique Product Selection Permitted - dicyclomine 20 mg Oral Tablet - take 1 tablet by ORAL route 4 times per day; 28 tablet; Refills: 0, Product dominique Selection Permitted Signatures: Dispatcher [employer] Juanito Bello MD MD cha Rittger, Kevin, MD MD kdr Bryson, James, RN RN jb4 Mariella Segovia RN RN kc6 Windy Wilson RN RN mb9 Corrections: (The following items were deleted from the chart) 18:59 18:59 Home Meds: Iron CR Oral; mb9 mb9 22:07 21:30 to [facility] 22:17 21:30 [facility] 22:17 21:30 Higher level of care [facility] 22:17 21:30 Stable [facility] 22:17 21:30 new [facility] 22:17 21:30 have improved [facility] 22:17 21:30 Other cholelithiasis without obstruction [facility] 22:17 21:30 Obesity, unspecified [facility] 22:17 21:30 Anemia, unspecified [facility] 22:17 21:30 Epigastric abdominal tenderness [facility] dominique 22:17 22:07 to [facility] dominique 22:17 22:07 Hypokalemia [facility]
[2022-11-29 21:56] LABS: Anisocytosis 3+; Blood Morphology Comment NOTED (NOT SEEN); Platelet Estimate INCR; Poikilocytosis 2+; Rouleau NOTED; White Blood Cell Scan OK (OK)
[2022-11-29 21:57] LABS: Hypochromasia 3+; Ovalocytes 1+; Stomatocytes 3+
[2022-11-29] MEDS ORDERED: NA CHLORIDE 0.9% 100 ML ONE ×2 (22:21→22:56)
[2022-11-29] MEDS ORDERED: PIPERACIL/TAZO 3.375 GM VIAL IV ONE (22:21)
[2022-11-30 04:59] VITALS: TEMP 98
[2022-11-30 05:02] VITALS: BP 128/73; O2SAT 100
== END 2022-11-30 04:30 | disposition home or self-care (01) ==
LOC: ER 18:52
DX: K80.80 Other cholelithiasis without obstruction (principal); D64.9 Anemia, unspecified; N93.9 Abnormal uterine and vaginal bleeding, unspecified
CPT/HCPCS: 36415; 74177; 76705; 80053; 83690; 84703; 85025; 86850; 86900; 86901; 86920; 96374; 96375; 99284; J2405; J2543; J3010; J7030; P9016; Q9967

== ENCOUNTER 2024-05-08 20:30 | Emergency (ER) | payer OTHER, SELFPAY ==
--- OUTSIDE RECORDS SUMMARY | 2024-05-08 20:33 | XMS REPORT | Continuity of Care Document ---
Author Name Unknown Address [address] [place] [address] [facility] thconnect Address [address] [place] [address] Care Team Providers Care Risk Control Manager Name Role Phone JUSTICE FENTON Primary Care Physician Servando washington [email or web address] Attending Clinician JUSTICE Gonzalez Attending Clinician UnavailJustice Kimball Attending Clinician [phone] Doctor Unassigned, [place] Attending Clinician U navailable Lab, Adc Fam Pob I Attending Clinician UnavailLiza Villareal Attending Clinician [phone] LIZA BELL Attending Clinician Unavailable DONNIE ROOT Attending Clinician Unavailable Donnie Root PA-C Attending Clinician [phone] [email or web address]_S Admitting Clinician Lisbet castellanos Payers Payer Name Policy Type Policy Number Effective Date Expirati on Date Source [facility] [id number] 2021 00:00:00 Problems Condition Name Condition Details Condition Category Status Onset Date Resolution Date Last Treatment Date Treating Clinician Comments Source Menorrhagi a with regular cycle Menorrhagi a with regular cycle Disease Active 09-03 00:00: 00 [facility] Encounter for surveillan ce of other contracept sorin Encounter for surveillan ce of other contracept sorin Disease Active 09-03 00:00: 00 [facility] Class 2 obesity due to excess calories with body mass index (BMI) of 38.0 to 38.9 in adult, unspecifie d whether serious comorbidit y present Class 2 obesity due to excess calories with body mass index (BMI) of 38.0 to 38.9 in adult, unspecifie d whether serious comorbidit y present Disease Active 09-03 00:00: 00 [facility] BMI 38.0-38.9, adult BMI 38.0-38.9, adult Disease Active 09-03 00:00: 00 [facility] Fibroids Fibroids Disease Active 02-08 00:00: 00 [facility] Irregular menstrual bleeding Irregular menstrual bleeding Disease Active 10-27 00:00: 00 [facility] Obesity (BMI 30.0-34.9) Obesity (BMI 30.0-34.9) Disease Active 06-28 00:00: 00 [facility] Well woman exam Well woman exam Disease Active 06-28 00:00: 00 [facility] History of bilateral tubal ligation History of bilateral tubal ligation Disease Active 06-28 00:00: 00 [facility] Former tobacco use Former tobacco use Disease Active 06-28 00:00: 00 [facility] Allergies, Adverse Reactions, Alerts Allergy Name Allergy Type Status Severity Reaction(s) Onset Date Inactive Date Treating Clinician Comments Source NO KNOWN ALLERGIE S Drug Class Active [facility] Social History Social Habit Start Date Stop Date Quantity Comments Source Exposure to SARS-CoV-2 (event) Not sure [facility] History SDOH Alcohol Frequency [facility] History SDOH Alcohol Std Drinks [facility] History SDOH Alcohol Binge [facility] Alcohol intake 2021-09-03 00:00:00 2021-09-03 00:00:00 Current drinker of alcohol (finding) [facility] Cigarettes smoked current (pack per day) - Reported 2016-06-28 00:00:00 2016-06-28 00:00:00 [facility] Cigarette pack-years 2016-06-28 00:00:00 2016-06-28 00:00:00 [facility] Alcohol Comment 2016-06-28 00:00:00 2016-06-28 00:00:00 Occassionally [facility] Tobacco use and exposure 2016-06-28 00:00:00 2016-06-28 00:00:00 Never used [facility] History of tobacco use 2015-06-18 00:00:00 Cigarette Smoker [facility] Sex Assigned At 1980 00:00:00 1980 00:00:00 [facility] Smoking Status Start Date Stop Date Source Former smoker 2016-06-28 00:00:00 2016-06-28 00:00:00 [facility] Medications Ordered Medication Name Filled Medication Name Start Date Stop Date Current Medication? Ordering Clinician Indication Dosage Frequency Signature (SIG) Comments Components Source ferrous sulfate 325 mg (65 mg iron) tablet 09-04 00:00: 00 Yes [id number] 325mg Take 1 tablet by mouth 2 (two) times daily. [facility] ascorbic acid, vitamin C, 500 mg tablet 09-04 00:00: 00 Yes [id number] 500mg Take 1 tablet by mouth 3 (three) times daily. [facility] IRON, FERROUS SULFATE, ORAL 09-03 15:32: 13 Yes Take by mouth. [facility] Encounters Start Date/Time End Date/Time Encounter Type Admission Type Attending [facility] Care Facility Care Department Encounter ID Source 2023-03-29 00:00:00 2023-03-29 00:00:00 Outpatient [email or web address]_[email or web address] [facility] [id number] [facility] 2022-09-03 13:00:00 2022-09-03 13:00:00 Outpatient JUSTICE SR [facility] [id number] [facility] 2021 00:00:00 2021 00:00:00 Telephone Justice Fenton [facility] DEPUTY K [address] [facility] [id number] [facility] 2021-09-03 15:30:00 2021-09-03 16:05:53 Outpatient R CHETAN FENTONCAROLINALINDA [facility] [id number] [facility] 2021-09-03 15:30:00 2021-09-03 16:05:53 Outpatient R CHETAN FENTONCAROLINALINDA [facility] [id number] [facility] 2021-09-03 15:30:00 2021-09-03 16:05:53 Office Visit Justice Fenton Arabella [facility] DEPUTY K 9 [facility] 1.0.114 [id number] [facility] 2021-09-03 00:00:00 2021-09-03 00:00:00 Orders Only Doctor Unassigned, [place] [facility] 1..114 [id number] [id number] [id number] [facility] 2020-07-28 12:55:09 2020-07-28 13:15:09 Laboratory Only Lab, [facility] 1..114 [id number] [id number] [id number] [facility] 2020-07-28 12:55:09 2020-07-28 13:15:09 Laboratory Only Lab, [facility] [address] 1.114 [id number] [id number] [id number] 2020-07-28 13:00:00 2020-07-28 13:00:00 Outpatient R LIZA BELL [facility] [id number] [facility] 2020-04-26 11:00:00 2020-04-26 11:00:00 [facility] [id number] 2020-04-26 10:37:02 2020-04-26 10:57:02 Laboratory Only Lab, [facility] Nhi Root [facility] [address] 1.114 [id number] [id number] [id number] [facility] 2020-04-26 10:37:02 2020-04-26 10:57:02 Laboratory Only Lab, [facility] [address] 1.114 [id number] [id number] [id number] 2020-04-26 00:00:00 2020-04-26 00:00:00 Letter (Out) Doctor Unassigned, [place] [facility] 1.0.114 [id number] [id number] [id number] [facility] 2020-04-26 00:00:00 2020-04-26 00:00:00 Letter (Out) Doctor Unassigned, [place] [facility] 1.2840.114 [id number] [id number] [id number]
[2024-05-08] MEDS ORDERED: MORPHINE 4 MG/ML SYR ONE (22:06)
[2024-05-08] MEDS ORDERED: ONDANSETRON 4 MG/2 ML VIAL ONE (22:06)
[2024-05-08 22:12] LABS: Absolute Basophils 0.1 K/uL (0-0.5); Absolute Eosinophils 0.2 K/uL (0-0.5); Absolute Lymphocytes (CBC) 1.9 K/uL (0.7-4.9); Absolute Monocytes 0.5 K/uL (0.1-1.3); Basophils % 0.8 % (0-1.3); Eosinophils % 2.5 % (0-4.4); Lymphocytes % 24.4 % (15.3-44.8); MCH 15.3 pg (27.0-35.0); MCHC 27.2 g/dL (32.0-36.0); MCV 56.4 fL (80-100); MPV 8.2 fL (7.6-11.3); Neutrophils % 66.3 % (41.7-73.7); Platelets 364 thou/uL (152-406); Red Cell Distribution Width 19.4 % (12.1-15.2)
--- NOTE | 2024-05-08 22:30 | RAD REPORT ---
EXAMINATION: US LEFT UPPER EXTREMITY VENOUS DOPPLER CLINICAL INDICATION: PAIN TECHNIQUE: Complete bilateral duplex sonography of the LEFT upper extremity veins was performed. The examination included compression for vein patency, color Doppler imaging and flow augmentation in response to distal compression of the internal jugular, brachiocephalic, subclavian, axillary, brachi al, radial, ulnar, cephalic and basilic veins. COMPARISON: No prior exam. FINDINGS: Duplex sonography testing of the veins of the LEFT upper extremity was performed. Color flow imaging shows all veins to be compressible with [id number]-[id number] color filling. Pulsatile and phasic flow is present within all upper extremity deep and superficial veins examined. IMPRESSION: There is no deep vein or superficial vein thrombosis.
[2024-05-08 22:32] LABS: Anion Gap 6.5 mEq/L (5.0-15.0); C-Reactive Protein 14.4 mg/L (<3.00); Potassium 3.5 mEq/L (3.5-5.1); Troponin High Sensitivity 3.7 pg/mL (<58.9)
[2024-05-08 22:51] LABS: Anisocytosis 1+; Blood Morphology Comment NOTED (NOT SEEN); Hypochromasia 2+; Microcytosis 2+; Platelet Estimate ADEQ; Polychromasia 1+; White Blood Cell Scan OK (OK)
[2024-05-08] MEDS ORDERED: CYCLOBENZAPRINE 10 MG TAB ONE (23:13)
[2024-05-08] MEDS ORDERED: KETOROLAC 30 MG/ML INJ ONE (23:13)
--- NOTE | 2024-05-09 01:03 | RAD REPORT ---
EXAM: CT chest without IV contrast CLINICAL DATA: 43 years Female left axillary/shoulder pain TECHNICAL DATA: Axial CT imaging of the chest was performed without intravenous contrast. Sagittal and coronal shannan nstructed images were then performed. The CT study is performed according to ALARA (as low as reasonably achievable) or ALARA/IMAGE GENTLY, with automatic adjustment of mA and/or kV according to patient size. Performed on: 05/08/2024 at 11:51 PM Comparison: No prior studies were available for comparison. FINDINGS: CT CHEST: Lungs: The lungs are well expanded and are clear. There is no evidence of a pneumothorax. There are n o pleural effusions. The central airways are patent. Heart: The heart is normal in size. There is no pericardial effusion. Mediastinum: The mediastinum is unremarkable. The mediastinal vessels are normal in caliber and con tour. Bones: No acute osseous abnormalities are identified. Soft tissues: There is a low density mass within the muscle along the inferior lateral aspect of the tip of the left scapula possibly representing the teres major muscle measuring approximately 5.4 x 3.7 cm in cross-sectional diameter by 4.9 cm in craniocaudal dimension. This is nonspecific and could represent an intramuscular hematoma, infection or less likely neoplasm. Lymphadenopathy: No pathologic hilar, mediastinal or axillary lymphadenopathy is identified. Upper abdomen: Visualized portions of the upper abdomen reveal a partially imaged large gallstone kory suring at least 2.4 cm in diameter. IMPRESSION: 1. No evidence of acute intrathoracic disease. 2. Low density mass within the muscle along the inferior lateral aspect of the tip of the left scap patience possibly representing the teres major muscle measuring approximately 5.4 x 3.7 x 4.9 cm. This is nonspecific and could represent an intramuscular hematoma, infection or less likely neoplasm. Cons ider CT imaging with contrast, ultrasound imaging or MR for further characterization. 3. Cholelithiasis. Electronically signed by: Alethea Soria DO 05/09/2024 12:50 AM [facility] Due to temporary technical issues with the PACS/AC Immune SA reporting system, reports are being mekhi d by the in-house radiologist without review as a courtesy to ensure prompt reporting the interpreting radiologist is fully responsible for the content of the report. Transcribed Date/Time: 05/09/2024 1:02 AM
[2024-05-09] MEDS ORDERED: NA CHLORIDE 0.9% 250 ML ONE (01:11)
--- NOTE | 2024-05-09 02:55 | EDPHYS ---
Physician Documentation [facility] Name: Trinity Ramos Age: 43 yrs Sex: Female : 1980 Arrival Date: 05/08/2024 Time: 20:30 Bed 4 Private MD: ED Physician Compa Palm HPI: 05/08 23:26 This 43 yrs old Female presents to ER via Ambulatory with complaints of sb4 Shoulder Pain - Left x4days. 23:26 patient reports pain in her left shoulder/axilla x 4 days. denies any new or prior sb4 injury. reports significant pain with ROM. denies any skin abnormalities. denies any chest pain or shortness of breath. 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 - Infectious Disease History:: Denies. - Social history:: Smoking status: unknown. ROS: 23:26 Constitutional: Negative for fever, chills, and weight loss, sb4 23:26 MS/extremity: Positive for pain, tenderness, of the left arm and left axilla and anterior aspect of left shoulder, 23:26 All other systems are negative, Exam: 23:26 Head/Face: Normocephalic, atraumatic. Eyes: Extra-ocular motions intact. Periorbital sb4 areas with no swelling, redness, or edema. ENT: Mucous membranes moist. Cardiovascular: Regular rate and rhythm with a normal S1 and S2. Respiratory: No increased work of breathing, no retractions or nasal flaring. Abdomen/GI: Soft, non-tender, no distension. Skin: Warm, dry with normal turgor. Normal color with no rashes, no lesions, and no evidence of cellulitis. 23:26 Constitutional: The patient appears alert, awake, uncomfortable, 23:26 Musculoskeletal/extremity: Joints: the left shoulder displays limited range of motion, pain at rest, painful range of motion, tenderness, Vital Signs: 21:30 BP 116 / 59; Pulse 77; Resp 16; Temp 97.9(TE); Pulse Ox 100% on R/A; Weight 86.18 kg; cm10 Height 5 ft. 2 in. ; Pain 10; 22:30 BP 103 / 48; Pulse 81; Resp 18; Pulse Ox 99% ; cp4 22:30 BP 98 / 55; Pulse 70; Resp 18; Pulse Ox 99% ; cp4 05/09 00:10 BP 95 / 61; Pulse 69; Resp 18; Pulse Ox 99% ; cp4 01:59 BP 108 / 64; Pulse 62; Resp 18; Pulse Ox 99% ; cp4 02:57 BP 106 / 57; Pulse 67; Resp 18; Pulse Ox 100% ; cp4 04:10 BP 112 / 63; Pulse 57; Resp 18; Temp 98; Pulse Ox 99% ; cp4 05/08 21:30 Body Mass Index 34.75 (86.18 kg, 157.48 cm) cm10 05/08 21:30 Pain Scale: Adult cm10 MDM: 05/08 21:34 Medical Screening Exam initiated sb4 23:28 ED course: cbc revealed hgb of 6. patient reports history of anemia secondary to heavy sb4 menstrual cycles, states she just ended her 3 month long cycle recently. does report some will. 05/09 02:16 Data reviewed: vital signs, nurses notes, lab test result(s), EKG, radiologic studies, sb4 I have discussed the patient's presentation/case with the attending Emergency Department Physician; and as a result, I will discharge patient. Counseling: I had a detailed discussion with the patient and/or guardian regarding the historical points, exam findings, and any diagnostic results supporting the discharge/admit diagnosis, lab results, radiology results, the need for outpatient follow up, a orthopedic surgeon, to return to the emergency department if symptoms worsen or persist or if there are any questions or concerns that arise at home. 05/08 22:32 Order name: Type And Screen sb4 05/08 21:34 Order name: Basic Metabolic Panel; Complete Time: 22:32 sb4 05/08 21:34 Order name: CBC with Diff; Complete Time: 22:54 sb4 05/08 21:34 Order name: Troponin HS; Complete Time: 22:32 sb4 05/08 21:34 Order name: CRP; Complete Time: 22:32 sb4 05/08 22:17 Order name: CBC Smear Scan; Complete Time: 22:54 EDMS 05/08 23:02 Order name: Packed RBC Leukored EDMS 05/08 21:51 Order name: UPPER EXTREMITY VENOUS UNILATE; Complete Time: 22:32 EDMS 05/08 22:55 Order name: CT Chest Wo Con sb4 05/09 01:15 Order name: US Extrmty Nonvasular Limited sb4 05/08 21:34 Order name: IV Saline Lock; Complete Time: 22:12 sb4 05/08 21:34 Order name: Labs collected and sent; Complete Time: 22:12 sb4 05/08 22:58 Order name: Transfuse; Complete Time: 01:42 sb4 05/09 02:21 Order name: Shoulder Immobilizer; Complete Time: 04:08 sb4 Administered Medications: 05/08 22:12 Drug: morphine IVP or IV 4 mg IVP once over 4 mins Route: IVP; Infused Over: 4 mins; cp4 Site: right antecubital; 23:10 Follow up: Response: No adverse reaction; Pain is decreased cp4 22:12 Drug: Ondansetron IVP 4 mg IVP once; over 2 minutes Route: IVP; Site: right antecubital;cp4 23:10 Follow up: Response: No adverse reaction cp4 23:20 Drug: Ketorolac IVP 15 mg IVP once Route: IVP; Site: right antecubital; cp4 05/09 00:11 Follow up: Response: No adverse reaction; Pain is decreased cp4 05/08 23:20 Drug: Cyclobenzaprine PO 10 mg PO once Route: PO; cp4 05/09 00:11 Follow up: Response: No adverse reaction cp4 Disposition: 06:09 Co-signature as Attending Physician, Compa Palm MD I agree with the assessment sp4 and plan of care. I reviewed the patient's care provided by Advanced Practice Provider \T\ agree w/ the diagnosis \T\ care plan. I personally saw the pt \T\ performed a substantive portion of the visit, incldng all aspects of the (History/Exam/Medical Decision Making). Disposition Summary: 05/09/24 02:55 Discharge Ordered Notes: Location: Home sb4 Problem: new sb4 Symptoms: have improved sb4 Condition: Stable sb4 Diagnosis - Pain in left shoulder sb4 - Localized swelling, mass and lump, left upper limb - scapula sb4 - Acute posthemorrhagic anemia sb4 Followup: sb4 - With: Fran Jiménez MD - When: 1 week - Reason: Further diagnostic work-up, Recheck today's complaints, Re-evaluation by your physician Discharge Instructions: - Discharge Summary Sheet sb4 - Shoulder Pain sb4 - Blood Transfusion, Adult, Care After sb4 Forms: - Work release form sb4 - Family Work Release sb4 - Patient Portal Instructions sb4 - Leadership Thank You Letter sb4 Prescriptions: - meloxicam 7.5 mg Oral tablet - take 1 tablet ORAL route daily; 14 tablet; Refills: 0, Product Selection sb4 Permitted - Cyclobenzaprine 10 mg Oral Tablet - take 1 tablet ORAL route every 8 hours As needed; 30 tablet; Refills: 0, sb4 Product Selection Permitted - Tramadol 50 mg Oral Tablet - take 1 tablet ORAL route every 8 hours as needed; 12 tablet; Refills: 0, sb4 Product Selection Permitted Critical care time excluding procedures: 02:15 Critical care time: Bedside Care: 20 minutes, Consultation: 15 minutes. Total time: 35 sb4 minutes Signatures: Dispatcher [employer] EDYary Hathaway PA-C PAMisty sb4 Compa Palm MD MD sp4 Nisa Villa RN RN cm10 Ila Ibarra cp4 Corrections: (The following items were deleted from the chart) 05/08 21:51 21:35 Extremity Venous Uni [employer]+[id number].RAD.[email or web address] ordered. EDMS EDMS
--- NOTE | 2024-05-09 02:55 | ER ---
Nurse's Notes [facility] Dat Name: Trinity Ramos Age: 43 yrs Sex: Female : 1980 Arrival Date: 05/08/2024 Time: 20:30 Bed 4 Private MD: Diagnosis: Pain in left shoulder;Localized swelling, mass and lump, left upper limb-scapula;Acute posthemorrhagic anemia Presentation: 05/08 21:30 Chief complaint: Patient states: LEFT SHOULDER PAIN ONSET TUESDAY. NO TRAUMA OR INJURY. cm10 Coronavirus screen: Client denies travel out of the [place] in the last 14 days. Ebola Screen: Patient denies travel to an Ebola-affected area in the 21 days before illness onset. No symptoms or risks identified at this time. Initial Sepsis Screen: Does the patient meet any 2 criteria? No. Patient's initial sepsis screen is negative. Does the patient have a suspected source of infection? No. Patient's initial sepsis screen is negative. Risk Assessment: Do you want to hurt yourself or someone else? Patient reports no desire to harm self or others. Onset of symptoms was May 04, 2024. 21:30 Method Of Arrival: Ambulatory cm10 21:30 Acuity: KRISTI 4 cm10 Triage Assessment: 21:32 General: Appears in no apparent distress. uncomfortable, Behavior is calm, cooperative. cm10 Pain: Complains of pain in anterior aspect of left shoulder and left axilla Pain radiates to anterior aspect of left upper chest Pain currently is 10 out of 10 on a pain scale. Neuro: No deficits noted. Level of Consciousness is awake, alert, obeys commands, Oriented to person, place, time, situation, Appropriate for age. Respiratory: No deficits noted. Airway is patent Respiratory effort is even, unlabored, Respiratory pattern is regular, symmetrical. 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 - Infectious Disease History:: Denies. - Social history:: Smoking status: unknown. Screenin:19 [facility] ED Fall Risk Assessment (Adult) History of falling in the last 3 months, cp4 including since admission No falls in past 3 months (0 pts) Confusion or Disorientation No (0 pts) Intoxicated or Sedated No (0 pts) Impaired Gait No (0 pts) Mobility Assist Device Used No (0 pt) Altered Elimination No (0 pt) Score/Fall Risk Level 0 - 2 = Low Risk Oriented to surroundings, Maintained a safe environment, Assessed \T\ reinforced patient's understanding of fall precautions, Hourly rounding (assess needs \T\ fall precautionary measures) done. Abuse screen: Denies threats or abuse. Nutritional screening: No deficits noted. Tuberculosis screening: No symptoms or risk factors identified. Assessment: 22:19 General: Appears in no apparent distress. uncomfortable, Behavior is calm, cooperative, cp4 appropriate for age. Pain: Complains of pain in anterior aspect of left upper chest and left arm Pain at worst was 10 out of 10 on a pain scale. Neuro: Level of Consciousness is awake, alert, obeys commands, Oriented to person, place, time, situation. Cardiovascular: Patient's skin is warm and dry. Respiratory: Airway is patent Respiratory effort is even, unlabored. GI: No signs and/or symptoms were reported involving the gastrointestinal system. : No signs and/or symptoms were reported regarding the genitourinary system. EENT: No signs and/or symptoms were reported regarding the EENT system. Derm: No signs and/or symptoms reported regarding the dermatologic system. Musculoskeletal: Reports pain in anterior aspect of left upper chest and left arm and anterior aspect of left shoulder. 23:00 Reassessment: Patient appears in no apparent distress at this time. Patient and/or cp4 family updated on plan of care and expected duration. Pain level reassessed. Patient is alert, oriented x 3, equal unlabored respirations, skin warm/dry/pink. 05/09 00:00 Reassessment: Patient appears in no apparent distress at this time. Patient and/or cp4 family updated on plan of care and expected duration. Pain level reassessed. Patient is alert, oriented x 3, equal unlabored respirations, skin warm/dry/pink. 01:00 Reassessment: Patient appears in no apparent distress at this time. Patient and/or cp4 family updated on plan of care and expected duration. Pain level reassessed. Patient is alert, oriented x 3, equal unlabored respirations, skin warm/dry/pink. 02:02 Reassessment: Patient appears in no apparent distress at this time. Patient and/or cp4 family updated on plan of care and expected duration. Pain level reassessed. Patient is alert, oriented x 3, equal unlabored respirations, skin warm/dry/pink. 02:57 Reassessment: Disposition pending. Patient finishing blood transfusion. cp4 Vital Signs: 05/08 21:30 BP 116 / 59; Pulse 77; Resp 16; Temp 97.9(TE); Pulse Ox 100% on R/A; Weight 86.18 kg; cm10 Height 5 ft. 2 in. ; Pain 03/08; 22:30 BP 103 / 48; Pulse 81; Resp 18; Pulse Ox 99% ; cp4 22:30 BP 98 / 55; Pulse 70; Resp 18; Pulse Ox 99% ; cp4 05/09 00:10 BP 95 / 61; Pulse 69; Resp 18; Pulse Ox 99% ; cp4 01:59 BP 108 / 64; Pulse 62; Resp 18; Pulse Ox 99% ; cp4 02:57 BP 106 / 57; Pulse 67; Resp 18; Pulse Ox 100% ; cp4 04:10 BP 112 / 63; Pulse 57; Resp 18; Temp 98; Pulse Ox 99% ; cp4 05/08 21:30 Body Mass Index 34.75 (86.18 kg, 157.48 cm) cm10 05/08 21:30 Pain Scale: Adult cm10 ED Course: 05/08 20:35 Patient arrived in ED. ra3 20:38 Yary De La O PA-C is PHCP. sb4 20:38 Compa Palm MD is Attending Physician. sb4 21:31 Triage completed. cm10 21:31 Arm band placed on right wrist. Patient placed in waiting room. cm10 22:19 Bed in low position. Call light in reach. Side rails up X 1. cp4 22:19 No provider procedures requiring assistance completed. Initial lab(s) drawn, by me, cp4 sent to lab. Inserted saline lock: 20 gauge in right antecubital area, using aseptic technique. Blood collected. Flushed with 10 mL NS. 22:28 UPPER EXTREMITY VENOUS UNILATE In Process Unspecified. EDMS 23:09 Ila Ibarra is Primary Nurse. cp4 23:22 Provided Education on: Blood Transfusion. cp4 23:45 CT Chest Wo Con In Process Unspecified. EDMS 05/09 01:57 US Extrmty Nonvasular Limited In Process Unspecified. EDMS 02:54 Fran Jiménez MD is Referral Physician. sb4 04:12 intact, bleeding controlled, No redness/swelling at site. Pressure dressing applied. cp4 Administered Medications: 05/08 22:12 Drug: morphine IVP or IV 4 mg IVP once over 4 mins Route: IVP; Infused Over: 4 mins; cp4 Site: right antecubital; 23:10 Follow up: Response: No adverse reaction; Pain is decreased cp4 22:12 Drug: Ondansetron IVP 4 mg IVP once; over 2 minutes Route: IVP; Site: right antecubital;cp4 23:10 Follow up: Response: No adverse reaction cp4 23:20 Drug: Ketorolac IVP 15 mg IVP once Route: IVP; Site: right antecubital; cp4 05/09 00:11 Follow up: Response: No adverse reaction; Pain is decreased cp4 05/08 23:20 Drug: Cyclobenzaprine PO 10 mg PO once Route: PO; cp4 05/09 00:11 Follow up: Response: No adverse reaction cp4 Medication: 05/08 22:19 VIS not applicable for this client. cp4 Outcome: 05/09 02:55 Discharge ordered by . sb4 04:12 Discharged to home ambulatory, cp4 04:12 Condition: stable 04:12 Discharge instructions given to patient, family, Instructed on discharge instructions, follow up and referral plans. medication usage, Demonstrated understanding of instructions, follow-up care, medications, Prescriptions given X 3, 04:12 Patient left the ED. cp4 Signatures: Dispatcher [employer] EDMS Yary De La O PA-C PA-C sb4 Nisa Villa, KLEBER RN cm10 Ila Ibarra cp4 Heidi Salinas ra3
--- NOTE | 2024-05-09 02:58 | RAD REPORT ---
EXAM: US Left Upper Extremity Non-Vascular, Limited CLINICAL HISTORY: The patient is 43 years old and is Female; shoulder, hematoma vs mass TECHNIQUE: Real-time ultrasound scan of the left upper extremity with image documentation. COMPARISON: CT of the chest May 08, 2024. FINDINGS: Limited images along the left lateral upper back, scapular region were obtained. There is no ultras ound correlate to prior CT findings. There is questionable small hypoechoic area within the musculature no this is nondescript and only seen in one plane. IMPRESSION: No ultrasound correlate to prior CT findings. If there is continued concern, an MRI without and wit h contrast is recommended. Electronically signed by: Brittney Colunga MD 05/09/2024 02:38 AM [facility] Due to temporary technical issues with the PACS/What They Like scribe reporting system, reports are being signed by the in-house radiologist without review as a courtesy to ensure prompt reporting the interpreting radiologist is fully responsible for the content of the report. Transcribed Date/Time: 05/09/2024 2:58 AM
[2024-05-09 04:41] VITALS: BP 112/63; TEMP 98; O2SAT 99
== END 2024-05-09 04:12 | disposition home or self-care (01) ==
LOC: ER 20:30
PROC: 30233N1 Transfusion of Nonautologous Red Blood Cells into Peripheral Vein, Percutaneous Approach (ICD-10-PCS; principal; 2024-05-09)
DX: R22.32 Localized swelling, mass and lump, left upper limb (principal); D62 Acute posthemorrhagic anemia
CPT/HCPCS: 36415; 71250; 76882; 80048; 84484; 85025; 86140; 86850; 86900; 86901; 86920; 93971; 96374; 96375; 99284; J2405; J7050; P9016

== ENCOUNTER 2024-06-20 00:37 | Emergency (ER) | payer SELFPAY ==
--- OUTSIDE RECORDS SUMMARY | 2024-06-20 00:41 | XMS REPORT | Continuity of Care Document ---
Author Name Unknown Address [address] [place] [address] [facility]connect Address 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 Name Role Phone JUSTICE FENTON Primary Care Physician Servando washington [email or web address] Attending Clinician JUSTICE Gonzalez Attending Clinician Justice Chan Attending Clinician + [phone] Doctor Unassigned, Raemon Attending Clinician U navailable Lab, Adc Fam Pob I Attending Clinician UnavailLiza Villareal Attending Clinician [phone] LIZA BELL Attending Clinician Unavailable DONNIE ROOT Attending Clinician Unavailable Donnie Root PA-C Attending Clinician [phone] [email or web address] Admitting Clinician Lisbet castellanos Payers Payer Name Policy Type Policy Number Effective Date Expirati on Date Source [facility] [id number] 2021 00:00:00 Problems Condition Name Condition Details Condition Category Status Onset Date Resolution Date Last Treatment Date Treating Clinician Comments Source Menorrhagi a with regular cycle Menorrhagi a with regular cycle Disease Active 09-03 00:00: 00 [facility] Encounter for surveillan ce of other contracept sorin Encounter for surveillan ce of other contracept sorin Disease Active 09-03 00:00: 00 [facility] Class 2 obesity due to excess calories with body mass index (BMI) of 38.0 to 38.9 in adult, unspecifie d whether serious comorbidit y present Class 2 obesity due to excess calories with body mass index (BMI) of 38.0 to 38.9 in adult, unspecifie d whether serious comorbidit y present Disease Active 09-03 00:00: 00 [facility] BMI 38.0-38.9, adult BMI 38.0-38.9, adult Disease Active 09-03 00:00: 00 [facility] Fibroids Fibroids Disease Active 02-08 00:00: 00 [facility] Irregular menstrual bleeding Irregular menstrual bleeding Disease Active 10-27 00:00: 00 [facility] Obesity (BMI 30.0-34.9) Obesity (BMI 30.0-34.9) Disease Active 06-28 00:00: 00 [facility] Well woman exam Well woman exam Disease Active 06-28 00:00: 00 [facility] History of bilateral tubal ligation History of bilateral tubal ligation Disease Active 06-28 00:00: 00 [facility] Former tobacco use Former tobacco use Disease Active 06-28 00:00: 00 [facility] Allergies, Adverse Reactions, Alerts Allergy Name Allergy Type Status Severity Reaction(s) Onset Date Inactive Date Treating Clinician Comments Source NO KNOWN ALLERGIE S Drug Class Active [facility] Social History Social Habit Start Date Stop Date Quantity Comments Source Exposure to SARS-CoV-2 (event) Not sure [facility] History SDOH Alcohol Frequency [facility] History SDOH Alcohol Std Drinks [facility] History SDOH Alcohol Binge [facility] Alcohol intake 2021-09-03 00:00:00 2021-09-03 00:00:00 Current drinker of alcohol (finding) [facility] Cigarettes smoked current (pack per day) - Reported 2016-06-28 00:00:00 2016-06-28 00:00:00 [facility] Cigarette pack-years 2016-06-28 00:00:00 2016-06-28 00:00:00 [facility] Alcohol Comment 2016-06-28 00:00:00 2016-06-28 00:00:00 Occassionally [facility] Tobacco use and exposure 2016-06-28 00:00:00 2016-06-28 00:00:00 Never used [facility] History of tobacco use 2015-06-18 00:00:00 Cigarette Smoker [facility] Sex Assigned At 1980 00:00:00 1980 00:00:00 [facility] Smoking Status Start Date Stop Date Source Former smoker 2016-06-28 00:00:00 2016-06-28 00:00:00 [facility] Medications Ordered Medication Name Filled Medication Name Start Date Stop Date Current Medication? Ordering Clinician Indication Dosage Frequency Signature (SIG) Comments Components Source ferrous sulfate 325 mg (65 mg iron) tablet 09-04 00:00: 00 Yes [id number] 325mg Take 1 tablet by mouth 2 (two) times daily. [facility] ascorbic acid, vitamin C, 500 mg tablet 09-04 00:00: 00 Yes [id number] 500mg Take 1 tablet by mouth 3 (three) times daily. [facility] IRON, FERROUS SULFATE, ORAL 09-03 15:32: 13 Yes Take by mouth. [facility] Encounters Start Date/Time End Date/Time Encounter Type Admission Type Attending [facility] Care Facility Care Department Encounter ID Source 2023-03-29 00:00:00 2023-03-29 00:00:00 Outpatient [email or web address] [email or web address]_S [facility] [id number] [facility] 2022-09-03 13:00:00 2022-09-03 13:00:00 Outpatient R JUSTICE FENTON [facility] [id number] [facility] 2021 00:00:00 2021 00:00:00 Telephone Justice Fenton [facility] [employer] REP [facility] [id number] [facility] 2021-09-03 15:30:00 2021-09-03 16:05:53 Outpatient R JUSTICE FENTON [facility] [id number] [facility] 2021-09-03 15:30:00 2021-09-03 16:05:53 Outpatient R CHETAN FENTONCAROLINALINDA [facility] [id number] [facility] 2021-09-03 15:30:00 2021-09-03 16:05:53 Office Visit Justice Fenton [facility] [employer] REP [facility] [id number] [id number] [facility] 2021-09-03 00:00:00 2021-09-03 00:00:00 Orders Only Doctor Unassigned, Raemon [facility] 1..114 [id number] [facility] 2020-07-28 12:55:09 2020-07-28 13:15:09 Laboratory Only Lab, [facility] Brissaalessandro [facility] [address] 1.114 [id number] [facility] 2020-07-28 12:55:09 2020-07-28 13:15:09 Laboratory Only Lab, [facility] [address] 1.114 [id number] [id number] 2020-07-28 13:00:00 2020-07-28 13:00:00 Outpatient R LIZA BELL [facility] [id number] [facility] 2020-04-26 11:00:00 2020-04-26 11:00:00 Outpatient DONNIE EASTMAN [facility] [id number] [facility] 2020-04-26 10:37:02 2020-04-26 10:57:02 Laboratory Only Lab, [facility] Nhi Root [facility] [address] 1.114 [id number] [facility] 2020-04-26 10:37:02 2020-04-26 10:57:02 Laboratory Only Lab, [facility] [address] 1.114 [id number] [id number] [id number] 2020-04-26 00:00:00 2020-04-26 00:00:00 Letter (Out) Doctor Unassigned, Raemon [place] [id number] [id number] [facility] 2020-04-26 00:00:00 2020-04-26 00:00:00 Letter (Out) Doctor Unassigned, Raemon [facility] [id number] [id number]
[2024-06-20] MEDS ORDERED: KETOROLAC 30 MG/ML INJ ONE (00:56)
[2024-06-20] MEDS ORDERED: ONDANSETRON 4 MG/2 ML VIAL ONE (00:56)
[2024-06-20] MEDS ORDERED: MORPHINE 4 MG/ML SYR ONE (00:57)
[2024-06-20] MEDS ORDERED: MORPHINE 2 MG/ML SYR ONE (00:57)
[2024-06-20] MEDS ORDERED: FAMOTIDINE 20 MG/2 ML VIAL IV ONE (00:57)
[2024-06-20] MEDS ORDERED: NA CHLORIDE 0.9% 1,000 ML ONE (00:57)
[2024-06-20 01:35] LABS: Albumin 3.7 g/dL (3.4-5.0); Albumin/Globulin Ratio 0.8 (1.1-1.8); Anion Gap 7.3 mEq/L (5.0-15.0); Bilirubin Total 0.5 mg/dL (0.2-1.0); Globulin 4.7 g/dL (2.3-3.5); Potassium 3.3 mEq/L (3.5-5.1); Protein, Total 8.4 g/dL (6.4-8.2)
[2024-06-20 01:40] LABS: Absolute Basophils 0.1 K/uL (0-0.5); Absolute Eosinophils 0.3 K/uL (0-0.5); Absolute Lymphocytes (CBC) 2.8 K/uL (0.7-4.9); Absolute Monocytes 0.8 K/uL (0.1-1.3); Absolute Neutrophil 5.7 K/uL (1.8-8.0); Basophils % 1.2 % (0-1.3); Eosinophils % 2.9 % (0-4.4); Hemoglobin 7.4 g/dL (12.0-15.0); Lymphocytes % 28.8 % (15.3-44.8); MCH 17.7 pg (27.0-35.0); MCHC 29.7 g/dL (32.0-36.0); MCV 59.5 fL (80-100); MPV 8.7 fL (7.6-11.3); Monocytes % 7.9 % (3.3-12.3); Neutrophils % 59.2 % (41.7-73.7); Nucleated Red Blood Cells % 0.1 % (0-0); Platelets 384 thou/uL (152-406); RBC Red Blood Cell Count 4.21 M/uL (3.86-4.86); Red Cell Distribution Width 21.4 % (12.1-15.2)
[2024-06-20] MEDS ORDERED: NA CHLORIDE 0.9% 100 ML ONE (01:50)
[2024-06-20] MEDS ORDERED: PIPERACIL/TAZO 3.375 GM VIAL IV ONE (01:50)
[2024-06-20 02:50] LABS: Specific Gravity > 1.030 (1.005-1.030)
--- NOTE | 2024-06-20 02:52 | RAD REPORT ---
EXAM: US Abdomen Limited, Gallbladder CLINICAL HISTORY: The patient is 43 years old and is Female; ABD PAIN TECHNIQUE: Real-time ultrasound of the right upper quadrant with image documentation. COMPARISON: No relevant prior studies available. FINDINGS: GALLBLADDER: A large gallstone is present within the gallbladder. There is no gallbladder wall th ickening. There is a positive sonographic Landaverde sign. No pericholecystic fluid is noted. COMMON BILE DUCT: Unremarkable as visualized. No stones. No dilation. IMPRESSION: Cholelithiasis with positive sonographic Landaverde sign which can be seen with acute cholecystitis; ho wever, there is no pericholecystic fluid or gallbladder wall thickening. Electronically signed by: Brittney Colunga MD 06/20/2024 02:48 AM [facility] Due to temporary technical issues with the [employer] scribe reporting system, reports are being signed by the in-house radiologist without review as a courtesy to ensure prompt reporting the interpreting radiologist is fully responsible for the content of the report. Transcribed Date/Time: 06/20/2024 2:52 AM
[2024-06-20 02:53] LABS: Specific Gravity > 1.030 (1.005-1.030); Sqamous Epithelial <5 /HPF (None Seen); Urine Bacteria <20 /HPF (<20); Urine Bilirubin NEGATIVE (Negative); Urine Blood Negative (Negative); Urine Clarity Clear (Clear); Urine Color Light-Yellow (Yellow); Urine Culture Reflex Order NOT NEEDED; Urine Glucose NEGATIVE (Negative); Urine Ketones NEGATIVE (Negative); Urine Microscopic Reflex YN ORDER UMIC; Urine Mucus Slight /HPF (None Seen); Urine Nitrite NEGATIVE (Negative); Urine Protein TRACE (Negative); Urine RBC None Seen /HPF (None Seen); Urine Urobilinogen Normal (Normal); Urine WBC <5 /HPF (<5)
--- NOTE | 2024-06-20 02:54 | RAD REPORT ---
EXAM: CT Abdomen and Pelvis With Intravenous Contrast CLINICAL HISTORY: The patient is 43 years old and is Female; ABD PAIN TECHNIQUE: Axial computed tomography images of the abdomen and pelvis with intravenous contrast. Sagittal an d coronal reformatted images were created and reviewed. This CT exam was performed using one or more of the following dose reduction techniques: automated exposure control, adjustment of the mA a nd/or kV according to patient size, and/or use of iterative reconstruction technique. COMPARISON: CT abdomen pelvis November 29, 2022 FINDINGS: LUNG BASES: Minimal dependent densities in the lung bases are noted. No consolidation. ABDOMEN: LIVER: The liver is enlarged and fatty. GALLBLADDER AND BILE DUCTS: Enlarged calcified gallstone is present within the body of the gallbl adder. No gallbladder wall thickening or pericholecystic fluid is noted. PANCREAS: No ductal dilation. No mass. SPLEEN: The spleen is prominent. ADRENALS: Unremarkable. No mass. KIDNEYS AND URETERS: Unremarkable. The kidneys enhance symmetrically. No obstructing renal or ure teral calculus is seen. No hydronephrosis or hydroureter. No perinephric fluid or stranding. STOMACH AND BOWEL: The stomach is distended with food contents. The small bowel is normal in melida bernice. Stool is present throughout the colon. There is no mucosal thickening or evidence of obstruction. PELVIS: APPENDIX: The appendix is normal in caliber without surrounding inflammation. BLADDER: Unremarkable. No mass. REPRODUCTIVE: A trace left ovarian cyst is present. No follow-up imaging is recommended. The uter us and right ovary are normal. ABDOMEN and PELVIS: INTRAPERITONEAL SPACE: Unremarkable. No free air. No significant fluid collection. BONES/JOINTS: Bilateral pars defects are present at L4 with grade 1 anterolisthesis of L4 on L5. There is no acute fracture. SOFT TISSUES: The soft tissues are normal. VASCULATURE: Unremarkable. No abdominal aortic aneurysm. LYMPH NODES: Unremarkable. No enlarged lymph nodes. IMPRESSION: 1. Hepatic steatosis and hepatomegaly. 2. Cholelithiasis without CT evidence to suggest cholecystitis. Electronically signed by: Brittney Colunga MD 06/20/2024 02:50 AM [facility] Due to temporary technical issues with the [employer] reporting system, reports are being mekhi d by the in-house radiologist without review as a courtesy to ensure prompt reporting the interpreting radiologist is fully responsible for the content of the report. Transcribed Date/Time: 06/20/2024 2:54 AM
[2024-06-20 03:14] LABS: Blood Morphology Comment NOTED (NOT SEEN); Platelet Estimate ADEQ; White Blood Cell Scan OK (OK)
[2024-06-20 03:15] LABS: Hypochromasia 2+; Microcytosis 2+; Ovalocytes 1+; Polychromasia 1+
--- NOTE | 2024-06-20 03:38 | ER ---
Nurse's Notes [facility] Name: Trinity Ramos Age: 43 yrs Sex: Female : 1980 Arrival Date: 06/20/2024 Time: 00:37 Bed 2 Private MD: Diagnosis: Acute biliary colic, Cholelithiasis without acute cholecystitis Presentation: 06/20 00:47 Chief complaint: Patient states: I started having right upper abdominal pain around jb4 5pm, it went away and then came back. I am having nausea and vomiting. Coronavirus screen: At this time, the client does not indicate any symptoms associated with coronavirus-19. Ebola Screen: No symptoms or risks identified at this time. Initial Sepsis Screen: Does the patient meet any 2 criteria? No. Patient's initial sepsis screen is negative. Does the patient have a suspected source of infection? No. Patient's initial sepsis screen is negative. Risk Assessment: Do you want to hurt yourself or someone else? Patient reports no desire to harm self or others. Onset of symptoms was June 20, 2024. Transition of care: patient was not received from another setting of care. 00:47 Method Of Arrival: Ambulatory jb4 00:47 Acuity: KRISTI 3 jb4 Triage Assessment: 01:59 General: Appears distressed, uncomfortable. 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 - Infectious Disease History:: Denies. - Family history:: not pertinent. - Social history:: Smoking status: Patient reports the use of cigarette tobacco products, denies chronic smoking, but will smoke occasionally. Screenin:48 [facility] ED Fall Risk Assessment (Adult) History of falling in the last 3 months, bm8 including since admission No falls in past 3 months (0 pts) Confusion or Disorientation No (0 pts) Intoxicated or Sedated No (0 pts) Impaired Gait No (0 pts) Mobility Assist Device Used No (0 pt) Altered Elimination No (0 pt) Score/Fall Risk Level 0 - 2 = Low Risk Oriented to surroundings, Maintained a safe environment, Educated pt \T\ family on fall prevention, incl call for assistance when getting out of bed, Assessed \T\ reinforced patient's understanding of fall precautions, Hourly rounding (assess needs \T\ fall precautionary measures) done, Used ambulatory aids as needed (educated on \T\ assisted with), Used gait belt as appropriate. Abuse screen: Denies threats or abuse. Nutritional screening: No deficits noted. Tuberculosis screening: No symptoms or risk factors identified. Assessment: 00:46 General: Appears distressed, uncomfortable, Behavior is cooperative, appropriate for bm8 age, anxious. Pain: Complains of pain in right upper quadrant Pain does not radiate. Pain currently is 9 out of 10 on a pain scale. Quality of pain is described as sharp, squeezing. Neuro: No deficits noted. Level of Consciousness is awake, alert, obeys commands, Oriented to person, place, time, situation, Appropriate for age. Cardiovascular: Denies chest pain, Heart tones S1 S2 present Capillary refill < 3 seconds in bilateral fingers Patient's skin is warm and dry. Respiratory: Airway is patent Respiratory effort is even, unlabored, Respiratory pattern is regular, symmetrical, Breath sounds are clear bilaterally. GI: Abdomen is round non-distended, Bowel sounds present X 4 quads. Abdomen is tender to palpation in right upper quadrant Guarding noted in right upper quadrant Reports upper abdominal pain, cramping, nausea, Pain is 9 out of 10 on a pain scale. vomiting. : No signs and/or symptoms were reported regarding the genitourinary system. EENT: No signs and/or symptoms were reported regarding the EENT system. Derm: No signs and/or symptoms reported regarding the dermatologic system. Musculoskeletal: No signs and/or symptoms reported regarding the musculoskeletal system. 02:37 Reassessment: Patient appears in no apparent distress at this time. Patient and/or bm8 family updated on plan of care and expected duration. Pain level reassessed. Patient is alert, oriented x 3, equal unlabored respirations, skin warm/dry/pink. Patient states feeling better. Patient states symptoms have improved. Pain: Complains of pain in right upper quadrant Pain currently is 5 out of 10 on a pain scale. 03:49 Reassessment: Patient appears in no apparent distress at this time. Patient and/or bm8 family updated on plan of care and expected duration. Pain level reassessed. Patient is alert, oriented x 3, equal unlabored respirations, skin warm/dry/pink. Patient denies pain at this time. Patient states feeling better. Patient states symptoms have improved. Vital Signs: 00:47 BP 145 / 84; Pulse 74; Resp 16; Pulse Ox 100% on R/A; Weight 83.91 kg (R); Height 5 ft. jb4 2 in. (R); 02:37 BP 135 / 74; Pulse 69; Resp 18; Temp 98.2; Pulse Ox 100% ; Pain 5/10; bm8 03:49 BP 131 / 74; Pulse 68; Resp 18; Temp 98.2; Pulse Ox 100% ; Pain 0/10; bm8 00:47 Body Mass Index 33.84 (83.91 kg, 157.48 cm) jb4 02:37 Pain Scale: Adult bm8 03:49 Pain Scale: Adult bm8 [place] Coma Score: 00:46 Eye Response: spontaneous(4). Motor Response: obeys commands(6). Verbal Response: bm8 oriented(5). Total: 15. 02:37 Eye Response: spontaneous(4). Motor Response: obeys commands(6). Verbal Response: bm8 oriented(5). Total: 15. 03:49 Eye Response: spontaneous(4). Motor Response: obeys commands(6). Verbal Response: bm8 oriented(5). Total: 15. 23 03:47 Eye Response: spontaneous(4). Motor Response: obeys commands(6). Verbal Response: sp4 oriented(5). Total: 15. ED Course: 06/20 00:39 Patient arrived in ED. gm2 00:46 Francisco Harvey, RN is Primary Nurse. bm8 00:48 Patient has correct armband on for positive identification. Placed in gown. Bed in low bm8 position. Call light in reach. Side rails up X2. Adult w/ patient. Client placed on continuous cardiac and pulse oximetry monitoring. NIBP monitoring applied. Pulse ox on. NIBP on. Door closed. Warm blanket given. Pillow given. Verbal reassurance given. Head of bed elevated. 00:48 No provider procedures requiring assistance completed. Initial lab(s) drawn, by ED bm8 staff, sent to lab. T\T\S collected, blood band applied to patient. Inserted saline lock: 20 gauge in left antecubital area, using aseptic technique. Blood collected. Flushed with 10 mL NS. Patient maintains SpO2 saturation greater than 95% on room air. 00:49 Compa Palm MD is Attending Physician. sp4 00:50 Triage completed. jb4 00:50 Arm band placed on right wrist. jb4 00:53 Inserted saline lock: 20 gauge in left antecubital area, using aseptic technique. Blood vk collected. Flushed with 10 mL NS. 01:26 US Abdomen Limited In Process Unspecified. EDMS 01:57 CT Abd/Pelvis - IV Contrast Only In Process Unspecified. EDMS 03:36 Gabe Nolan MD is Referral Physician. sp4 03:49 Provided Education on: post er care. bm8 03:49 IV discontinued, intact, bleeding controlled, No redness/swelling at site. Pressure bm8 dressing applied. Administered Medications: 01:05 Drug: morphine IVP or IV 6 mg IVP once over 4 mins Route: IVP; Infused Over: 4 mins; bm8 Site: left antecubital; 01:58 Follow up: Response: No adverse reaction bm8 01:05 Drug: Ketorolac IVP 30 mg IVP once Route: IVP; Site: left antecubital; bm8 01:58 Follow up: Response: No adverse reaction bm8 01:06 Drug: Famotidine IVP 20 mg IVP once; dilute with 10 mL 0.9% NaCl; give over 2 minutes bm8 Route: IVP; Site: left antecubital; :58 Follow up: Response: No adverse reaction bm8 01:06 Drug: Ondansetron IVP 8 mg IVP once; over 2 minutes Route: IVP; Site: left antecubital; bm8 01:58 Follow up: Response: No adverse reaction bm8 01:06 Drug: NS 0.9% IV 1000 ml IV at 1 bolus Per protocol; to be given as a bolus over 60 bm8 minutes Route: IV; Rate: 1 bolus; Site: left antecubital; 01:58 Follow up: Response: No adverse reaction; IV Status: Completed infusion; IV Intake: bm8 1000ml 02:37 Drug: Piperacillin-Tazobactam IVPB 3.375 grams IVPB once over 60 mins; (mix in NS 100 bm8 mL) Route: IVPB; Infused Over: 60 mins; Site: left antecubital; 02:38 Follow up: Response: No adverse reaction; IV Status: Completed infusion; IV Intake: bm8 100ml 03:50 Drug: Promethazine PO 25 mg PO once Route: PO; bm8 03:52 Follow up: Response: No adverse reaction bm8 03:51 Drug: HYDROcodone-acetaminophen PO 5 mg-325 mg 2 tabs PO once {Note: pt requested only bm8 of the two tabs..} Route: PO; 03:52 Follow up: Response: No adverse reaction bm8 Medication: 00:48 VIS not applicable for this client. bm8 Intake: 01:58 IV: 1000ml; Total: 1000ml. bm8 02:38 IV: 100ml; Total: 1100ml. bm8 Outcome: 03:37 Discharge ordered by . sp4 03:49 Discharged to home ambulatory, bm8 03:49 Condition: stable 03:49 Condition: stable 03:49 Discharge instructions given to patient, family, Instructed on discharge instructions, follow up and referral plans. medication usage, safety practices, Demonstrated understanding of instructions, follow-up care, medications, Prescriptions given X 3, 03:53 Patient left the ED. bm8 Signatures: Dispatcher [employer] EDMS Josh Porras, RN RN jb4 Compa Palm MD MD sp4 Luisana Resendiz gm2 Karla Mcnamara Brad RN RN bm8 Corrections: (The following items were deleted from the chart) 03:52 03:51 HYDROcodone-acetaminophen PO 5 mg-325 mg 2 tabs PO bm8 bm8
--- NOTE | 2024-06-20 03:38 | EDPHYS ---
Physician Documentation [facility] Dat Name: Trinity Ramos Age: 43 yrs Sex: Female : 1980 Arrival Date: 06/20/2024 Time: 00:37 Bed 2 Private MD: ED Physician Compa Palm HPI: 06/20 00:49 This 43 yrs old Female presents to ER via Unassigned with complaints of sp4 Abdominal Pain, Nausea/Vomiting. 06/21 03:47 43-year-old female presents with abdominal pain nausea vomiting. Patient reports right sp4 upper quadrant abdominal pain associated with vomiting.. 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 - Infectious Disease History:: Denies. - Family history:: not pertinent. - Social history:: Smoking status: Patient reports the use of cigarette tobacco products, denies chronic smoking, but will smoke occasionally. ROS: 06/21 03:47 Constitutional: Negative for fever, chills, and weight loss, positive right upper sp4 quadrant abdominal pain All other systems are negative, Exam: 03:47 Constitutional: This is a well developed, well nourished patient who is awake, alert, sp4 and in no acute distress. Head/Face: Normocephalic, atraumatic. Eyes: Pupils equal round and reactive to light, extra-ocular motions intact. Lids and lashes normal. Conjunctiva and sclera are not injected. Cornea within normal limits. Periorbital areas with no swelling, redness, or edema. ENT: Nares patent. No nasal discharge, no septal abnormalities noted. Tympanic membranes are normal and external auditory canals are clear. Oropharynx with no redness, swelling, or masses, exudates, or evidence of obstruction, uvula midline. Mucous membranes moist. Neck: Trachea midline, no thyromegaly or masses palpated, and no cervical lymphadenopathy. Supple, full range of motion without nuchal rigidity, or vertebral point tenderness. Chest/axilla: Normal chest wall appearance and motion. Nontender with no deformity. No lesions are appreciated. Cardiovascular: Regular rate and rhythm with a normal S1 and S2. No gallops, murmurs, or rubs. Normal PMI, no JVD. No pulse deficits. Respiratory: Lungs have equal breath sounds bilaterally, clear to auscultation and percussion. No rales, rhonchi or wheezes noted. No increased work of breathing, no retractions or nasal flaring. Abdomen/GI: Soft, with normal bowel sounds. No distension or tympany. No guarding or rebound. Positive right upper quadrant abdominal tenderness. Back: No spinal tenderness. No costovertebral tenderness. Skin: Warm, dry with normal turgor. Normal color with no rashes, no lesions, and no evidence of cellulitis. MS/ Extremity: Pulses equal, no cyanosis. Neurovascular intact. Full, normal range of motion. Neuro: Awake and alert, GCS 15, oriented to person, place, time, and situation. Cranial nerves II-XII grossly intact. Motor strength 5/5 in all extremities. Sensory grossly intact. Psych: Awake, alert, with orientation to person, place and time. Behavior, mood, and affect are within normal limits Vital Signs: 06/20 00:47 BP 145 / 84; Pulse 74; Resp 16; Pulse Ox 100% on R/A; Weight 83.91 kg (R); Height 5 ft. jb4 2 in. (R); 02:37 BP 135 / 74; Pulse 69; Resp 18; Temp 98.2; Pulse Ox 100% ; Pain 5/10; bm8 03:49 BP 131 / 74; Pulse 68; Resp 18; Temp 98.2; Pulse Ox 100% ; Pain 0/10; bm8 00:47 Body Mass Index 33.84 (83.91 kg, 157.48 cm) jb4 02:37 Pain Scale: Adult bm8 03:49 Pain Scale: Adult bm8 [place] Coma Score: 00:46 Eye Response: spontaneous(4). Motor Response: obeys commands(6). Verbal Response: bm8 oriented(5). Total: 15. 02:37 Eye Response: spontaneous(4). Motor Response: obeys commands(6). Verbal Response: bm8 oriented(5). Total: 15. 03:49 Eye Response: spontaneous(4). Motor Response: obeys commands(6). Verbal Response: bm8 oriented(5). Total: 15. 06/21 03:47 Eye Response: spontaneous(4). Motor Response: obeys commands(6). Verbal Response: sp4 oriented(5). Total: 15. MDM: 06/20 00:51 Medical Screening Exam initiated sp4 03:25 ED course: EXAM: US Abdomen Limited, Gallbladder CLINICAL HISTORY: The patient is 43 sp4 years old and is Female; ABD PAIN TECHNIQUE: Real-time ultrasound of the right upper quadrant with image documentation. COMPARISON: No relevant prior studies available. FINDINGS: GALLBLADDER: A large gallstone is present within the gallbladder. There is no gallbladder wall thickening. There is a positive sonographic Landaverde sign. No pericholecystic fluid is noted. COMMON BILE DUCT: Unremarkable as visualized. No stones. No dilation. IMPRESSION: Cholelithiasis with positive sonographic Landaverde sign which can be seen with acute cholecystitis; however, there is no pericholecystic fluid or gallbladder wall thickening.. ED course: EXAM: CTAbdomen and Pelvis With Intravenous Contrast CLINICAL HISTORY: The patient is 43 years old and is Female; ABD PAIN TECHNIQUE: Axial computed tomography images of the abdomen and pelvis with intravenous contrast. Sagittal and coronal reformatted images were created and reviewed. This CT exam was performed using one or more of the following dose reduction techniques: automated exposure control, adjustment of the mA and/or kV according to patient size, and/or use of iterative reconstruction technique. COMPARISON: CT abdomen pelvis November 29, 2022 FINDINGS: LUNG BASES: Minimal dependent densities in the lung bases are noted. No consolidation. ABDOMEN: LIVER: The liver is enlarged and fatty. GALLBLADDER AND BILE DUCTS: Enlarged calcified gallstone is present within the body of the gallbladder. No gallbladder wall thickening or pericholecystic fluid is noted. PANCREAS: No ductal dilation. No mass. SPLEEN: The spleen is prominent. ADRENALS: Unremarkable. No mass. KIDNEYS AND URETERS: Unremarkable. The kidneys enhance symmetrically. No obstructing renal or ureteral calculus is seen. No hydronephrosis or hydroureter. No perinephric fluid or stranding. STOMACH AND BOWEL: The stomach is distended with food contents. The small bowel is normal in caliber. Stool is present throughout the colon. There is no mucosal thickening or evidence of obstruction. PELVIS: APPENDIX: The appendix is normal in caliber without surrounding inflammation. BLADDER: Unremarkable. No mass. REPRODUCTIVE: A trace left ovarian cyst is present. No follow-up imaging is recommended. The uterus and right ovary are normal. ABDOMEN and PELVIS: INTRAPERITONEAL SPACE: Unremarkable. No free air. No significant fluid collection. BONES/JOINTS: Bilateral pars defects are present at L4 with grade 1 anterolisthesis of L4 on L5. There is no acute fracture. SOFT TISSUES: The soft tissues are normal. VASCULATURE: Unremarkable. No abdominal aortic aneurysm. LYMPH NODES: Unremarkable. No enlarged lymph nodes. IMPRESSION: 1. Hepatic steatosis and hepatomegaly. 2. Cholelithiasis without CT evidence to suggest cholecystitis. Electronically signed by: Brittney Colunga MD 06/20/2024 02:50 AM. 06/21 03:47 Differential diagnosis: Nonspecific abd pain, gastritis, cholecystitis, pancreatitis, sp4 appendicitis, diverticulitis. Data reviewed: vital signs, nurses notes, old medical records, lab test result(s), radiologic studies, CT scan, ultrasound. Consideration of Admission/Observation Escalation of care including admission/observation considered. ED course: Patient improved, stable for discharge home with referral to general surgery.. 06/20 00:51 Order name: CBC with Diff; Complete Time: 03:28 sp4 06/20 00:51 Order name: CMP; Complete Time: 02: sp4 06/20 00:51 Order name: Lipase; Complete Time: 02:01 sp4 06/20 00:51 Order name: Test, Urine; Complete Time: 03:28 sp4 06/20 00:51 Order name: Urinalysis w/ reflexes; Complete Time: 03:28 sp4 06/20 00:51 Order name: Type And Screen; Complete Time: 03:28 sp4 06/20 01:01 Order name: CRP; Complete Time: 01:33 sp4 06/20 01:53 Order name: CBC Smear Scan; Complete Time: 03:28 EDMS 06/20 01:01 Order name: CT Abd/Pelvis - IV Contrast Only sp4 06/20 01:01 Order name: US Abdomen Limited sp4 06/20 00:51 Order name: IV Saline Lock; Complete Time: 00:53 sp4 06/20 00:51 Order name: Labs collected and sent; Complete Time: 00:53 sp4 Administered Medications: 06/20 01:05 Drug: morphine IVP or IV 6 mg IVP once over 4 mins Route: IVP; Infused Over: 4 mins; bm8 Site: left antecubital; :58 Follow up: Response: No adverse reaction bm8 01:05 Drug: Ketorolac IVP 30 mg IVP once Route: IVP; Site: left antecubital; bm8 :58 Follow up: Response: No adverse reaction bm8 01:06 Drug: Famotidine IVP 20 mg IVP once; dilute with 10 mL 0.9% NaCl; give over 2 minutes bm8 Route: IVP; Site: left antecubital; :58 Follow up: Response: No adverse reaction bm8 01:06 Drug: Ondansetron IVP 8 mg IVP once; over 2 minutes Route: IVP; Site: left antecubital; bm8 :58 Follow up: Response: No adverse reaction bm8 01:06 Drug: NS 0.9% IV 1000 ml IV at 1 bolus Per protocol; to be given as a bolus over 60 bm8 minutes Route: IV; Rate: 1 bolus; Site: left antecubital; :58 Follow up: Response: No adverse reaction; IV Status: Completed infusion; IV Intake: bm8 1000ml 02:37 Drug: Piperacillin-Tazobactam IVPB 3.375 grams IVPB once over 60 mins; (mix in NS 100 bm8 mL) Route: IVPB; Infused Over: 60 mins; Site: left antecubital; 02:38 Follow up: Response: No adverse reaction; IV Status: Completed infusion; IV Intake: bm8 100ml 03:50 Drug: Promethazine PO 25 mg PO once Route: PO; bm8 03:52 Follow up: Response: No adverse reaction bm8 03:51 Drug: HYDROcodone-acetaminophen PO 5 mg-325 mg 2 tabs PO once {Note: pt requested only bm8 of the two tabs..} Route: PO; 03:52 Follow up: Response: No adverse reaction bm8 Disposition Summary: 06/20/24 03:37 Discharge Ordered Problem: new sp4 Symptoms: have improved sp4 Condition: Stable sp4 Diagnosis - Acute biliary colic, Cholelithiasis without acute cholecystitis sp4 Followup: sp4 - With: Gabe Nolan MD - When: 10 - 14 days - Reason: Recheck today's complaints Discharge Instructions: - Discharge Summary Sheet sp4 - Fat and Cholesterol Restricted Eating Plan, [id number] sp4 Forms: - Patient Portal Instructions sp4 Prescriptions: - acetaminophen-codeine 300-60 mg Oral tablet - take 1 tablet ORAL route every 8 hours PRN pain; 20 tablet; Refills: 0, Product sp4 Selection Permitted - Ibuprofen 800 mg Oral Tablet - take 1 tablet ORAL route every 8 hours As needed take with food; 30 tablet; sp4 Refills: 0, Product Selection Permitted - ondansetron 8 mg Oral Tablet,disintegrating - take 1 tablet ORAL route every 8 hours PRN nausea; 30 tablet; Refills: 0, sp4 Product Selection Permitted Signatures: Dispatcher [employer] Josh Lynn, RN RN jb4 Compa Palm MD MD sp4 Francisco Harvey RN RN bm8
[2024-06-20] MEDS ORDERED: PROMETHAZINE 25 MG TABLET ONE (03:45)
[2024-06-20] MEDS ORDERED: HYDROCODONE/APAP 5/325 MG TAB ONE (03:45)
[2024-06-20 04:20] VITALS: O2SAT 100
[2024-06-20 04:22] VITALS: TEMP 98.2
[2024-06-20 04:23] VITALS: BP 131/74
== END 2024-06-20 03:53 | disposition home or self-care (01) ==
LOC: ER 00:37
DX: K80.20 Calculus of gallbladder without cholecystitis without obstruction (principal); K80.50 Calculus of bile duct without cholangitis or cholecystitis without obstruction
CPT/HCPCS: 36415; 74177; 76705; 80053; 81001; 81025; 83690; 85025; 86140; 86850; 86900; 86901; 96361; 96374; 96375; 99284; J2270; J2405; J2543; J7030; Q0169; Q9967